=== PATIENT | female | born 1940 | race Caucasian/White ===

== ENCOUNTER → 2018-04-06 14:19 | Outpatient (CLI) | payer MEDICARE, SELFPAY ==
--- NOTE | 2018-04-06 14:23 | BI_ITS ---
MAMMOGRAPHY - BILATERAL SCREENING REASON FOR EXAM: Female, 78 years old. Routine annual screening examination. PERTINENT HISTORY: Daughter with breast cancer. Grandmother with breast cancer. TECHNIQUE: Digital bilateral breast navin (3D mammographic acquisition) in the CC and MLO projections. 2-D mediolateral oblique (MLO) and craniocaudad (CC) views of both breasts were obtained. CAD: Full Field Digital Mammography with Computer Added Detection was performed. COMPARISON: Comparison is made with prior study dated September 26, 2015 and September 25, 2014. FINDINGS: Breast Composition: There are scattered areas of fibroglandular density. There are no dominant masses or suspicious calcifications. No other significant abnormalities are identified. There has been no significant change since the prior study. BI/SCREENING MAMM (CAD), BILAT IMPRESSION: Stable bilateral screening mammogram. Yearly follow-up mammogram recommended. (A) ASSESSMENT CATEGORY: BIRADS Category 1: Negative. A letter regarding these results will be sent to the patient by the facility within 30 days. Approximately 10% of breast cancers are not detected by mammography. A normal mammogram should not delay biopsy of a clinically suspicious abnormality. [id number] Electronically Signed: Vahid Gallegos MD at 15:23 EDT Tel [phone], Service support ,
== END ==
PROVIDERS: Family Provider Family Medicine; PCP Family Medicine; Visit Provider Family Medicine
DX: Z12.31 Encounter for screening mammogram for malignant neoplasm of breast (principal)
CPT/HCPCS: 77063; 77067

== ENCOUNTER → 2019-06-28 | Outpatient (CLI) | payer MEDICARE, SELFPAY ==
--- NOTE | 2019-06-28 10:01 | BI_ITS ---
MAMMOGRAPHY - BILATERAL SCREENING REASON FOR EXAM: Female, 79 years old. Routine annual screening examination. PERTINENT HISTORY: Daughter with breast cancer. Grandmother with breast cancer. TECHNIQUE: Digital bilateral breast robert (3D mammographic acquisition) in the CC and MLO projections. 2-D mediolateral oblique (MLO) and craniocaudad (CC) views of both breasts were obtained. CAD: Full Field Digital Mammography with Computer Added Detection was performed. COMPARISON: Comparison is made with prior study dated April 06, 2018 and September 26, 2015. FINDINGS: Breast Composition: There are scattered areas of fibroglandular density. There are no dominant masses or suspicious calcifications. No other significant abnormalities are identified. There has been no significant change since the prior study. BI/SCREEN MAMM (CAD) W/ROBERT BILAT IMPRESSION: Stable bilateral screening mammogram. Yearly follow-up mammogram recommended. (A) ASSESSMENT CATEGORY: BIRADS Category 2: Benign. A letter regarding these results will be sent to the patient by the facility within 30 days. Approximately 10% of breast cancers are not detected by mammography. A normal mammogram should not delay biopsy of a clinically suspicious abnormality. [id number] Electronically Signed: Vahid Gallegos, at 13:16 EDT , Service support ,
--- NOTE | 2019-06-28 10:33 | BD_ITS ---
STUDY: DUAL ENERGY X-RAY ABSORPTIOMETRY / DXA REASON FOR EXAM: Female, 79 years old. The patient is postmenopausal. Loss of height. TECHNIQUE: Bone Mineral Density (BMD) measurements of lumbar spine and right hip were obtained. COMPARISON: None. FINDINGS: Lumbar Spine (L1-L4): g/cm2 (1.452) / T-score (2.3) / Z-score (4.1) Findings are suggestive of normal bone density with a low fracture risk. Right Femur Total: g/cm2 (0.817) / T-score (-1.5) / Z-score (0.5) Right Femoral Neck: g/cm2 (0.800) / T-score (-1.7) / Z-score (0.4) BD/Dexa Bone Density Study IMPRESSION: The patient is considered osteopenic as outlined below according to World Eagle Organization (WHO) criteria with a moderate fracture risk. Reference Information: The T-score is the number of standard deviations above or below the standard which is normal for young adults at their peak bone mineral density. The World Health Organization (WHO) interprets the T-scores as follows: Above -1 Normal bone density Between -1 and -2.5 Osteopenia Equal to / or below -2.5 Osteoporosis As a practical clinical guideline, osteopenia may be graded as follows: Mild -1 through -1.5 Moderate -1.6 through -2.0 Severe -2.1 through -2.4 The Z-score is the number of standard deviations above or below age-matched controls. A Z-score of less than -1.5 would be considered abnormal. References: 1. NIH Osteoporosis and Related Bone Diseases http://www.osteo.org 2. International Society for Clinical Densitometry http://www.iscd.org 3. National Osteoporosis Foundation http://www.nof.org Electronically Signed: Vahid Gallegos, at 8:30 EDT , Service support ,
== END | disposition home or self-care (01) ==
LOC: OPBD 09:58
PROVIDERS: Family Provider Registered Nurse; PCP Registered Nurse; Referring Provider Registered Nurse; Visit Provider Registered Nurse
DX: Z78.0 Asymptomatic menopausal state (principal); Z13.820 Encounter for screening for osteoporosis; Z12.31 Encounter for screening mammogram for malignant neoplasm of breast
CPT/HCPCS: 77063; 77067; 77080

== ENCOUNTER 2020-01-27 08:22 | Emergency (ER) | payer MEDICARE, SELFPAY ==
[2020-01-27] VITALS (8 sets, daily range): BP systolic 110–143; BP diastolic 69–99; PULSE 71–82; RESP 15–22; TEMP 36.7–36.8; O2SAT 94–97; BMI 31.1
--- NOTE | 2020-01-27 08:25 | EKG12_ITS ---
Test Reason : CP Blood Pressure : / mmHG Vent. Rate : 075 BPM Atrial Rate : 075 BPM P-R Int : 180 ms QRS Dur : 138 ms QT Int : 440 ms P-R-T Axes : 028 028 -16 degrees QTc Int : 491 ms Normal sinus rhythm Right bundle branch block Possible Inferior infarct , age undetermined Abnormal ECG Confirmed by GISELA BANDA, TONEY ([id number]), medical editor MARY LUCIA ([id number]) on 01/30/2020 10:07:30 AM Referred By: IDALMIS Confirmed By:TONEY HIGGINS MD
--- NOTE | 2020-01-27 08:25 | RAD_ITS ---
STUDY: X-RAY CHEST REASON FOR EXAM: Female, 79 years old. CHEST PAIN TECHNIQUE: Single AP portable view of the chest. COMPARISON: None. FINDINGS: EKG electrodes are seen. Focal patchy infiltrates are seen in the right upper and right lower lobes. Mild increased markings in the midportion of the left lung. Follow-up is recommended. There is no demonstrated pleural abnormality. Normal size heart. Normal mediastinum and madeline. Normal visualized pulmonary arteries. There is atherosclerotic tortuosity of the aortic arch and descending thoracic aorta. There are diffuse degenerative changes of the visualized thoracic spine. There is degenerative osteoarthritis of the bilateral shoulders. There is no demonstrated abnormality of the visualized soft tissue structures of the upper abdomen. RAD/Chest 1 View (Portable) IMPRESSION: Patchy infiltrate in the right upper and right lower lobes as well as in the left midlung. Follow-up is recommended. Electronically Signed: Vahid Gallegos, at 9:09 EDT , Service support ,
[2020-01-27 08:41] LABS: Absolute Lymphocyte Count 1.22 X10^3/uL (0.83-4.51); Absolute Neutrophil Count 3.1 X10^3/uL (2.0-7.7); Basophil# 0.03 X10^3/uL; Basophil% 0.6 % (0-1); Eosinophil# 0.07 X10^3/uL; Eosinophils% 1.4 % (0-5); Hematocrit 39.5 % (37-47); Hemoglobin 12.9 g/dL (12.0-15.0); Lymphocyte # 1.22 X10^3/ul (4.0); Mean Corp Hgb Conc 32.7 g/dL (32-36); Mean Corpuscular Hgb 29.2 pg (27.0-32.0); Mean Corpuscular Volume 89.4 fL (81-99); Mean Platelet Vol. 10.8 fl (6.2-12.0); Monocyte# 0.42 X10^3/uL; Monocyte% 8.6 % (0-10); NRBC Flagged by Analyzer 0 % (0-5); Neutrophil # 3.12 X10^3/uL (2.7-7.7); Platelet Count 142 K/mm3 (150-450); RBC Distribution Width CV 14.5 % (11.6-14.6); RBC Distribution Width SD 46.9 fl (35.1-43.9); Red Blood Count 4.42 M/mm3 (4.2-5.4); White Blood Count 4.9 K/mm3 (4.4-11.0)
[2020-01-27 08:56] LABS: Anion Gap 9 (5-15); BUN 14 mg/dL (7-18); BUN/Creat Ratio 13.2 RATIO (10-20); Calcium,Total 9.1 mg/dL (8.5-10.1); Chloride 105 mmol/L (98-107); Creatinine, Serum 1.06 mg/dL (0.55-1.02); EST Glomerular Filtration Rate 53 mL/min (>60); Est Glom Filt Rate - Afr Amer 64 mL/min (>60); Estimated Creatinine Clearance 34.04 ml/min; Glucose 224 mg/dL (74-106); Potassium 3.5 mmol/L (3.5-5.1); Sodium Level 139 mmol/L (136-145)
[2020-01-27 09:27] LABS: International Normalized Ratio 1.3; Partial Thromboplast Time 40.1 Seconds (24.1-36.2); Prothrombin Time (Protime)PT. 15.8 SECONDS (11.7-14.9)
[2020-01-27] MEDS: Azithromycin 250 MG Tablet 500 MG PO (09:48)
[2020-01-27 09:49] LABS: AST(SGOT) 36 U/L (15-37); Alanine Aminotransfer ALT/SGPT 36 U/L (13-56); Albumin, Serum 3.4 g/dL (3.2-5.0); Alkaline Phosphatase 61 U/L (45-117); Bilirubin, Direct 0.22 mg/dL (0.00-0.30); Globulin 4.7 g/dL (2.2-4.2); Protein, Total 8.1 g/dL (6.4-8.2)
[2020-01-27] MEDS: Ceftriaxone 1 GM/50 ML BAG IV (10:02)
[2020-01-27 10:10] LABS: Lactic Acid 2.3 mmol/L (0.4-1.9)
--- NOTE | 2020-01-27 11:12 | CT_ITS ---
STUDY: CT CHEST WITHOUT CONTRAST REASON FOR EXAM: Female, 79 years old. PT STATED CHEST PAIN, HX OF HTN RADIATION DOSAGE (If Supplied By Facility): CTDIvol = ( 14.30 ) mGy, DLP = ( 464.43 ) mGycm TECHNIQUE: Transaxial imaging was performed without the administration of intravenous contrast material. Multiplanar coronal and sagittal images were reformatted. Individualized dose optimization techniques were used for this CT. COMPARISON: Comparison is made with prior chest radiograph done earlier today. FINDINGS: Emphysematous changes. Increase interstitial markings in the right upper lobe with subpleural blebs. Increased interstitial markings with areas of confluence in the lower lobes worse on the right side with multiple blebs. There is a 1.9 cm x 1.8 cm bleb in the posterior medial aspect of the right lower lobe. Tiny air-fluid level seen within the. This may represent a tiny infected bleb. There is no demonstrated pleural abnormality. There are calcifications of the coronary arteries. There are multiple small lymph nodes within the mediastinum, which are normal in size and morphology most compatible with reactive lymph hyperplasia. Normal hilar regions. Normal unenhanced pulmonary arteries. There is atherosclerotic calcification of the aortic arch with tortuosity and elongation of the aortic arch and descending thoracic aorta. There are multi-level degenerative changes of the thoracic spine. Small hiatal hernia. CT/Chest without Contrast IMPRESSION: Emphysematous changes with bullous formation in the lower lobes worse in the right lower lobe. Possible small infected bleb in the medial aspect of the right lower lobe. Increased markings at the lung bases suggestive of atelectasis and/or early infiltrates. Electronically Signed: Vahid Gallegos, at 11:53 EDT , Service support ,
[2020-01-27 11:25] LABS: Bacteria 0 SEEN /hpf (None Seen); Mucous, Urine 0 SEEN /hpf (<or=2+); Red Blood Cells-Urine 0 SEEN /hpf (0-5); Squamous Epithelial Cells - UA 0 SEEN /hpf (5-10); White Blood Cells 0 SEEN /hpf (0-5)
[2020-01-27 11:49] LABS: Color, Urine Yellow (Yellow); Glucose, Dipstick Normal (Normal); Ketone-Dipstick Negative (Negative); Leukocyte Esterase-Dipstick 25 /ul (Negative); Nitrite-Dipstick Negative (Negative); Occult Blood-Urine Negative /ul (Negative); Protein-Dipstick Negative (Negative); Urine Bilirubin Dipstick Negative (Negative); Urine Clarity Clear (Clear); Urine Urobilinogen Normal (Normal); Urine pH 6.5 (5.0 - 8.0)
--- NOTE | 2020-01-27 12:46 | ED.DCSUM_ITS ---
- ER Visit Summary Date of Service: 01/27/20 Chief Complaint: Chest pain History of Present Illness: The patient is a 79 F who sees Luz Marina Schmidt. She reports that she has chest pain that began yesterday evening at 11 PM while she was at rest. Is been a continuous pain since then and she cannot further desc ribe. It is 4-10 at worst and pain-free currently. Is worsened by movement of her left arm. Pain resolved when the squad gave her nitro. She denies any associated nausea, vomiting, diaphoresis, or shortness of breath. Patient reports that she is had a cough for months that is productive white sputum. She denies any fever or chills. Patient reports that her sister and father from an aneurysm and that she is concerned that this may be an aneurysm. Physical Examination: Vitals: Stable. Afebrile. General: Well-nourished and well-developed. Head: Normocephalic atraumatic. Neck: Supple, no lymphadenopathy. No JVD. Nontender. Cardiovascular: Regular rate and rhythm. 2 out of 6 systolic murmur. Respiratory: No respiratory distress. Clear to auscultation bilaterally. Mild tenderness palpation over the left side of her chest that does reproduce her pain Abdominal: Soft, nontender, nondistended, normal bowel sounds. No guarding, rebound, or peritoneal signs. Back: Nontender. Extremities: Nontender, no edema. Skin: Normal color, no rash. Neurologic: Alert and oriented ?3. Cranial nerves II through XII are intact. Normal strength and sensation. Psych: Normal affect. Test Results: EKG is sinus at 75 with right bundle branch block and nonspecific ST changes. She has T wave inversions in leads III and aVF. This is changed, but her old EKG is from 16 years ago. Troponin is less than 0.015 with greater than 9 hours of constant pain. CBC shows platelets 142. Chem-7 shows a creatinine 1.06 and glucose 224. INR is 1.3. PTT is 40.1. UA is negative. When the patient's chest x-ray was read as an infiltrate she had a lactic acid ordered. This was 2.3. Clinical Impression(s) from Imaging Studies Chest X-Ray 01/27/20 08:25 IMPRESSION: Patchy infiltrate in the right upper and right lower lobes as well as in the left midlung. Follow-up is recommended. Electronically Signed: Vahid Gallegos, at 9:09 EDT , Service support , Chest CT 01/27/20 11:12 IMPRESSION: Emphysematous changes with bullous formation in the lower lobes worse in the right lower lobe. Possible small infected bleb in the medial aspect of the right lower lobe. Increased markings at the lung bases suggestive of atelectasis and/or early infiltrates. Electronically Signed: Vahid Gallegos, at 11:53 EDT , Service support , Emergency Department Course and Treatment: I discussed the chest x-ray and CT findings with the patient. She reports that I do not even feel sick. She is happy that the CT does not show evidence of an aneurysm. I did discuss the blebs with her. She denies any tobacco use. However, she does report that her father was a smoker. She had secondhand exposure through this. She has not had secondhand exposure as an adult essentially. She was given a dose of Rocephin and Zithromax here. She feels well and would like to go home. Treatment Plan: Given the CT findings of blebs and questionable air-fluid level in 1 of the blebs patient will be instructed to follow-up with Dr. Calvillo of pulmonology for further evaluation. She is discharged on doxycycline. Return to the emergency department for any worsening symptoms. Disposition: To home in improved and stable condition. Impression: 1. Atypical chest pain. 2. Pulmonary blebs. This note was generated with [employer] dictation software. It may contain incorrect words, spelling, and punctuation that were not noted in review of the chart prior to signing ED Disposition - Plan for ED Patient: Disposition: Home or Assisted Living Instructions: Pneumonia, ED Chest Pain Atypical Unkn Cause Prescriptions: Doxycycline 100 mg PO BID #20 cap Prescription Printed Referrals: Luz Marina Schmidt NP-C [Primary Care Provider] - 3-5 Days Jonnathan Calvillo DO [STAFF PHYSICIAN] - 1-2 Weeks
[2020-01-27 13:31] LABS: Reflex Lactate? Y
== END 2020-01-27 13:15 | disposition home or self-care (01) ==
PROVIDERS: Emergency Provider Emergency Medicine; PCP Registered Nurse
DX: R07.89 Other chest pain (principal); J43.9 Emphysema, unspecified; I10 Essential (primary) hypertension; E11.9 Type 2 diabetes mellitus without complications; E78.5 Hyperlipidemia, unspecified; Z79.899 Other long term (current) drug therapy
CPT/HCPCS: 71045; 71250; 80048; 80076; 81001; 83605; 84484; 85025; 85610; 85730; 87040; 87086; 93005; 96365; 99285; J7030; A4216

== ENCOUNTER → 2020-03-14 14:42 | Outpatient (CLI) | payer MEDICARE, SELFPAY ==
[2020-03-05 08:05] VITALS: BMI 29.8
--- NOTE | 2020-03-14 14:47 | ECHOD_ITS ---
Reason For Study: DYSPNEA Procedure This was a 2D Doppler, Color Flow transthoracic echocardiogram. The study was technically difficult. Exam performed in department. Left Ventricle Normal size and thickness. The estimated ejection fraction is 65 %. Septal motion consistent with IVCD. No regional wall motion abnormalities noted. Right Ventricle Normal size and thickness. Normal systolic function. Atria The left atrium is mildly enlarged. Normal right atrium. Normal atrial septum. Mitral Valve Mild diffuse mitral valve thickening. There is no mitral valve stenosis. Tricuspid Valve Normal tricuspid valve. Trivial tricuspid valve insufficiency. Right ventricular systolic pressure estimated to be 24 mmHg. Aortic Valve Trisinus/trileaflet aortic valve. Mild diffuse aortic valve thickening. There is no aortic stenosis. Pulmonic Valve Normal pulmonic valve. Great Vessels Normal aortic root. Normal arch. Normal inferior vena cava. Inferior vena cava collapse with sniff. Pericardium/Pleural No pericardial effusion. MMode/2D Measurements & Calculations LVIDd: 3.7 cm IVSd: 0.98 cm Ao root diam: 3.7 cm LVIDs: 2.4 cm LVPWd: 1.0 cm RVDd: 2.6 cm FS: 34.7 % LAV(MOD-bp): 52.3 ml LA A4 area: 21.0 cm2 LA dimension(2D): 3.8 cm LAV(MOD-bp) Indexed: 29.8 ml/m2 LAV(MOD-sp2): 44.5 ml LAV(MOD-sp4): 55.4 ml RA A4 area: 12.5 cm2 Time Measurements MV dec time: 0.33 sec Doppler Measurements & Calculations MV E max baldev: 49.1 cm/sec Lat Peak E' Baldev: 7.3 cm/sec Med Peak E' Baldev: 5.4 cm/sec MV A max baldev: 86.5 cm/sec E/E' lat: 6.7 E/E' med: 9.2 MV E/A: 0.57 MV V2 max: 86.2 cm/sec Ao V2 max: 144.3 cm/sec LV V1 max: 92.2 cm/sec MV max P.0 mmHg Ao max P.3 mmHg LV V1 max P.4 mmHg MV V2 mean: 47.8 cm/sec MV mean P.0 mmHg MV V2 VTI: 19.2 cm TR max baldev: 216.5 cm/sec TR max P.8 mmHg Interpretation Summary The estimated ejection fraction is 65 %. The left atrium is mildly enlarged. Mild diffuse mitral valve thickening. There is no mitral valve stenosis. Trivial tricuspid valve insufficiency. Right ventricular systolic pressure estimated to be 24 mmHg. Compared to echo report dated 05/11/2014, no appreciable changes noted. Ordering Physician: Pete Davis Referring Physician: Pete Davis Performed By: Page Vital RDCS, RVT
== END ==
PROVIDERS: PCP Registered Nurse; Referring Provider Internal Medicine Critical Care Medicine; Visit Provider Internal Medicine Critical Care Medicine
DX: R06.00 Dyspnea, unspecified (principal); R06.02 Shortness of breath; Z98.890 Other specified postprocedural states
CPT/HCPCS: 93306

== ENCOUNTER → 2020-03-28 | Outpatient (CLI) | payer MEDICARE, SELFPAY ==
[2020-03-05 08:05] VITALS: BMI 29.8
[2020-03-28 13:11] VITALS: PULSE 79; PULSE 80; PULSE 87; PULSE 94; O2SAT 93; O2SAT 94; O2SAT 95
--- NOTE | 2020-03-28 13:15 | CPS ---
Knees and hips slowed her down if anything.
--- NOTE | 2020-03-28 14:03 | WT_ITS ---
PSN 6 Minute Walk Test - 6 Minute Walk Test 6 Minute Walk Test: 6 Minute Walk Test PSN:6-Minute Walk Test Start: 03/28/20 13:10 Freq: Status: Active Protocol: [id number] Document 03/28/20 13:11 FR (Rec: 03/28/20 13:16 FR [id number]) 6 Minute Walk Test Date Performed 03/28/20 Time Performed 12:30 Height 5 ft 2 in Weight: 73.936 kg Weight in Pounds 163.[address]: Dr. Davis Assistive device used: None Pre-test Oxygen Delivery Method Room Air Pulse Ox (%) 95 Pulse Rate (60-100 beats/min) 79 Dyspnea Haroldo Scale (0-10) 5 Exertion Haroldo Scale (6-20) 8 1st minute Oxygen Delivery Method Room Air Pulse Ox (%) 94 Dyspnea Haroldo Scale (0-10) 82 2nd minute Oxygen Delivery Method Room Air Pulse Ox (%) 94 Pulse Rate (60-100 beats/min) 87 3rd minute Oxygen Delivery Method Room Air Pulse Ox (%) 94 Dyspnea Haroldo Scale (0-10) 91 4th minute Oxygen Delivery Method Room Air Pulse Ox (%) 94 Dyspnea Haroldo Scale (0-10) 93 5th minute Oxygen Delivery Method Room Air Pulse Ox (%) 94 Dyspnea Haroldo Scale (0-10) 94 6th minute Oxygen Delivery Method Room Air Pulse Ox (%) 93 Pulse Rate (60-100 beats/min) 94 Dyspnea Haroldo Scale (0-10) 4 Exertion Haroldo Scale (6-20) 8 Post-test Oxygen Delivery Method Room Air Pulse Ox (%) 95 Pulse Rate (60-100 beats/min) 80 Full Laps Walked 13 Partial Lap, Number of Tiles Walked 7 Total Distance Walked (ft) 774 03/28/20 13:15 Cardiopulmonary Services by Nidia Vaughn Knees and hips slowed her down if anything. Initialized on 03/28/20 13:15 - END OF NOTE - Interpretation Interpretation: Patient was able to ambulate 774 feet over the course of 6 minutes on room air with no assistive devices or breaks. The patient experienced no significant desaturation or tachycardia during testing. These findings are consistent with a musculoskeletal limitation exercise tolerance. - Recommendations Recommendations: No supplemental oxygen is indicated at this time.
== END | disposition home or self-care (01) ==
LOC: PSN 12:25
PROVIDERS: PCP Registered Nurse; Referring Provider Internal Medicine Critical Care Medicine; Visit Provider Internal Medicine Critical Care Medicine
DX: R06.00 Dyspnea, unspecified (principal); J84.10 Pulmonary fibrosis, unspecified
CPT/HCPCS: 94618

== ENCOUNTER → 2020-04-04 07:40 | Outpatient (CLI) | payer MEDICARE, SELFPAY ==
[2020-03-05 08:05] VITALS: BMI 29.8
--- NOTE | 2020-04-04 14:17 | PFT ---
INTRODUCTION: The patient is an 80-year-old female that presents for pulmonary function studies secondary to a diagnosis of dyspnea. Respiratory therapy reports good patient effort. Bronchodilators were used during testing. INTERPRETATION: Forced expiration spirometry demonstrates no evidence of a large airways obstructive ventilatory defect. There was no significant response to aerosolized bronchodilators. Spirograms are of good quality and plateau normally. Body plus tomography was performed and reveals a decreased TLC to 3.11 L, 72% of predicted, indicative of a mild restrictive ventilatory impairment. The remainder of the lung volumes are symmetrically reduced. Diffusing capacity by single breath CO is also reduced to 60% of predicted. IMPRESSION: Isolated mild restrictive ventilatory impairment with symmetric reduction in diffusing capacity.
== END ==
PROVIDERS: PCP Registered Nurse; Referring Provider Internal Medicine Critical Care Medicine; Visit Provider Internal Medicine Critical Care Medicine
DX: J45.909 Unspecified asthma, uncomplicated (principal)
CPT/HCPCS: 94060; 94726; 94729

== ENCOUNTER → 2020-07-06 09:43 | Outpatient (CLI) | payer MEDICARE, SELFPAY ==
[2020-03-05 08:05] VITALS: BMI 29.8
--- NOTE | 2020-07-06 09:45 | BI_ITS ---
MAMMOGRAPHY - BILATERAL SCREENING REASON FOR EXAM: Female, 80 years old. Routine annual screening examination. PERTINENT HISTORY: Daughter with breast cancer. Grandmother with breast cancer. History of chronic bilateral nipple inversion. TECHNIQUE: Digital bilateral breast robert (3D mammographic acquisition) in the CC and MLO projections. 2-D mediolateral oblique (MLO) and craniocaudad (CC) views of both breasts were obtained. CAD: Full Field Digital Mammography with Computer Added Detection was performed. COMPARISON: Comparison is made with prior study dated 06/28/2019 and 05/03/2018. FINDINGS: Breast Composition: There are scattered areas of fibroglandular density. There are no dominant masses or suspicious calcifications. No other significant abnormalities are identified. There has been no significant change since the prior study. BI/SCREEN MAMM (CAD) W/ROBERT BILAT IMPRESSION: Stable bilateral screening mammogram. Yearly follow-up mammogram recommended. (A) ASSESSMENT CATEGORY: BIRADS Category 1: Negative. A letter regarding these results will be sent to the patient by the facility within 30 days. Approximately 10% of breast cancers are not detected by mammography. A normal mammogram should not delay biopsy of a clinically suspicious abnormality. [id number] Electronically Signed: Vahid Gallegos, at 12:21 EDT , Service support ,
== END ==
PROVIDERS: PCP Registered Nurse; Referring Provider Registered Nurse; Visit Provider Registered Nurse
DX: Z12.31 Encounter for screening mammogram for malignant neoplasm of breast (principal)
CPT/HCPCS: 77063; 77067

== ENCOUNTER 2020-11-28 11:52 | Outpatient (RCR) | payer MEDICARE, SELFPAY ==
[2020-03-05 08:05] VITALS: BMI 29.8
== END 2020-11-28 23:59 ==
LOC: IMMUN 11:52
PROVIDERS: PCP Registered Nurse; Visit Provider Family Medicine
DX: Z23 Encounter for immunization (principal)
CPT/HCPCS: 0011A; 0012A; 91301

== ENCOUNTER → 2020-12-13 12:38 | Outpatient (CLI) | payer MEDICARE, SELFPAY ==
[2020-03-05 08:05] VITALS: BMI 29.8
--- NOTE | 2020-12-14 09:51 | PFT ---
INTRODUCTION: The patient is an 80-year-old female that presents for pulmonary function studies secondary to a diagnosis of pulmonary fibrosis. Respiratory therapy reports good patient effort. Bronchodilators were used during testing. INTERPRETATION: Forced expiration spirometry demonstrates no evidence of a large airways obstructive ventilatory defect. There was no significant response to aerosolized bronchodilators. Spirograms are of good quality and plateau normally. Body plethysmography was performed and reveals lung volumes to be within normal limits. Diffusing capacity by single breath CO is mildly reduced at 71% of predicted. When compared to previous pulmonary function studies from April 2020, there has been an 18% improvement in total lung capacity along with a 15% improvement in diffusing capacity. IMPRESSION: Isolated mild reduction in diffusing capacity. There has been improvement in the patient's total lung capacity and DLCO since April 2020, as noted above.
== END ==
PROVIDERS: PCP Registered Nurse; Referring Provider Internal Medicine Critical Care Medicine; Visit Provider Internal Medicine Critical Care Medicine
DX: J84.10 Pulmonary fibrosis, unspecified (principal)
CPT/HCPCS: 94060; 94726; 94729

== ENCOUNTER 2021-05-20 11:44 | Inpatient (IN) | payer MEDICARE, SELFPAY ==
[2020-12-18 13:29] VITALS: BMI 31.1
[2021-05-20] VITALS (18 sets, daily range): BP systolic 117–138; BP diastolic 67–90; PULSE 57–68; RESP 14–20; TEMP 36.2–37.1; O2SAT 93–99; BMI 35.6; BMI 31.2
--- NOTE | 2021-05-20 12:06 | RAD_ITS ---
STUDY: X-RAY CHEST REASON FOR EXAM: Female, 81 years old. Sudden onset of chest pain. TECHNIQUE: Single AP portable view of the chest. COMPARISON: Comparison is made with prior study dated 01/27/2020. FINDINGS: EKG electrodes are seen. Bilateral perihilar infiltrates worse in the right infrahilar region. There is no demonstrated pleural abnormality. Normal size heart. Normal mediastinum and madeline. Normal visualized pulmonary arteries. There is atherosclerotic calcification of the aortic arch with tortuosity. Normal visualized thoracic spine. There is degenerative osteoarthritis of the bilateral shoulders. Prior bilateral rotator cuff surgery. There is no demonstrated abnormality of the visualized soft tissue structures of the upper abdomen. RAD/Chest 1 View (Portable) IMPRESSION: Patchy bilateral perihilar infiltrates worse in the right infrahilar region. Electronically Signed: Vahid Gallegos MD at 12:39 EDT , Service support ,
--- NOTE | 2021-05-20 12:06 | EKG12_ITS ---
Test Reason : CP Blood Pressure : / mmHG Vent. Rate : 062 BPM Atrial Rate : 062 BPM P-R Int : 200 ms QRS Dur : 138 ms QT Int : 464 ms P-R-T Axes : 031 034 -10 degrees QTc Int : 470 ms Normal sinus rhythm Right bundle branch block Abnormal ECG Confirmed by GISELA BANDA, TONEY ([id number]), publications editor DAMARIS AVILA ([id number]) on 05/22/2021 10:02:20 AM Referred By: Kiran Tate Confirmed By:TONEY HIGGINS MD
--- NOTE | 2021-05-20 12:07 | EDS_ITS ---
HPI History of Present Illness Chief Complaint: Chest Pain Informant: patient Onset/Context/Timing Onset: Hours (2-hour) Activity at onset: gradual Timing: Continuous Quality: Positive for Pain Location: Left Chest Current Severity: 4/10 Maximum Severity: 8/10 Worsened By: Nothing Relieved By: Nothing Associated Symptoms: Positive for - (Radiation to left arm) Narrative Narrative: Patient present secondary to left-sided chest pain. Patient states she was sitting in a chair reading a book about 2 hours prior to arrival when she developed pressure in her left arm and left chest. She denies shortness of breath. She reports a mild cough but no sputum. No fever or chills. No Covid exposures. She did receive the Covid vaccine. She denies history of coronary artery disease. [facility] Medical History Acid reflux Arthritis Asthma Carpal tunnel syndrome Chronic kidney disease, stage 3 left hand surgery Pulmonary fibrosis Right hand surgery Shingles Home Medications amlodipine 5 mg PO DAILY 01/27/20 [History Last Taken Unknown] atorvastatin 10 mg PO DAILY 01/27/20 [History Last Taken Unknown] cholecalciferol (vitamin D3) 2,000 unit PO DAILY 01/27/20 [History Last Taken Unknown] metformin 500 mg PO BID 01/27/20 [History Last Taken Unknown] metoprolol tartrate 50 mg PO BID 01/27/20 [History Last Taken Unknown] multivitamin with minerals 1 ea PO DAILY 01/27/20 [History Last Taken Unknown] pantoprazole 20 mg PO DAILY 01/27/20 [History Last Taken Unknown] albuterol sulfate 90 mcg/actuation aerosol inhaler 2 puff INHALATION Q6H PRN 03/05/20 [History Last Taken Unknown] beclomethasone dipropionate 40 mcg/actuation HFA breath activated aerosol 2 inh INHALATION DAILY g 03/05/20 [History Last Taken Unknown] Allergy/AdvReac Type Severity Reaction Status Date / Time morphine AdvReac feels Verified 05/20/21 11:45 drunk Family History Mother Enlarged heart Asthma Father Lupus Aneurysm Sister Asthma Rheumatoid arthritis Osteoarthritis Surgical History H/O left knee surgery H/O right knee surgery H/O: hysterectomy History of arthroplasty of both shoulders History of bladder surgery Hx of appendectomy Hx of cholecystectomy Hx of removal of ovary Social History Smoking Status: Never smoker ROS ROS ED Constitutional Constitutional ED: Denies chills or fever(s) Eyes Eyes: Denies change in vision ENT ENT ED: Denies sore throat Cardiovascular Cardiovascular: Reports chest pain Respiratory/Chest Respiratory/Chest: Denies cough or dyspnea Gastrointestinal Gastrointestinal: Denies abdominal pain, diarrhea, nausea or vomiting Genitourinary Genitourinary ED: Denies dysuria Musculoskeletal Musculoskeletal: Reports arthralgias and myalgias; Denies back pain Integumentary Denies rash Neurologic Neurologic: Denies headache(s), paresthesias or weakness Psychiatric Psychiatric: Denies anxiety or depression Allergic/Immunologic Allergic/Immunologic ED: Denies urticaria EXAM Physical Exam Const Vital Signs: 05/20/21 11:45 05/20/21 11:50 05/20/21 12:11 Temperature 97.2 F L Temperature Source Temporal Pulse Rate 64 64 Respiratory Rate 20 H 17 Respiratory Effort Normal Non-Labored Respiratory Pattern Normal Blood Pressure 132/83 H Blood Pressure Mean 99 Pulse Ox 95 97 99 Oxygen Delivery Method Room Air Room Air Nasal Cannula Oxygen Flow Rate (L/min) 2 05/20/21 12:45 Temperature Temperature Source Pulse Rate 59 L Respiratory Rate 16 Respiratory Effort Respiratory Pattern Blood Pressure 122/74 H Blood Pressure Mean 90 Pulse Ox 95 Oxygen Delivery Method Nasal Cannula Oxygen Flow Rate (L/min) 2 Positive well nourished and well developed General Appearance ED: well developed HEENT Reports normocephalic and head/scalp atraumatic Eyes PERRL and EOMs intact bilaterally Neck supple Chest Wall inspection of chest normal and palpation of chest normal Resp normal respiratory effort and clear to auscultation bilaterally Cardio regular rate and regular rhythm GI normal to inspection, nondistended, normoactive bowel sounds Palpation: soft Extremity normal to inspection Neuro oriented x3 and no sensory deficits noted Sensorium / Orientation: alert Motor Exam: strength 5/5 throughout Psych mental status grossly normal Skin no rashes or lesions noted Heart Score History: Moderately Suspicious ECG: Normal Age: >/= 65 years Risk Factors: No Risk Factors Troponin: >/=3 x Normal Limit Score: 5 MDM MDM MDM Narrative Medical decision making narrative: Patient had declined aspirin secondary to her chronic kidney disease. EKG, labs, chest x-ray obtained. Patient was given 25 mcg of fentanyl. Lab Data Attestation: I reviewed the patient's lab results. Labs: Laboratory Results - last 24 hr 05/20/21 05/20/21 11:30 11:30 WBC 4.6 RBC 4.61 Hgb 13.2 Hct 41.7 MCV 90.5 MCH 28.6 MCHC 31.7 L RDW Std Deviation 47.8 H RDW Coeff of Mg 14.6 Plt Count 148 L MPV 11.3 Immature Gran % (Auto) 0.400 Neut % (Auto) 66.0 Lymph % (Auto) 24.2 [place] % (Auto) 8.1 Eos % (Auto) 0.9 Baso % (Auto) 0.4 Absolute Neuts (auto) 3.0 Absolute Lymphs (auto) 1.10 Nucleated RBC % 0 Sodium 138 Potassium 3.9 Chloride 107 Carbon Dioxide 27.0 Anion Gap 4 L BUN 16 Creatinine 0.88 Estim Creat Clear Calc 37.83 Est GFR (MDRD) Af Amer 79 Est GFR (MDRD) Non-Af 65 BUN/Creatinine Ratio 18.1 Glucose 160 H Calcium 8.9 Troponin I High Sens 88.0 H* Radiography Chest X-Ray - ED: 1 View, Read by ED Physician and - (Fibrotic lung changes.) Diagnostic Testing: Radiology Impression Chest X-Ray 05/20/21 12:06 IMPRESSION: Patchy bilateral perihilar infiltrates worse in the right infrahilar region. Electronically Signed: Vahid Gallegos MD at 12:39 EDT , Service support , EKG Initial EKG: Attestation: I personally reviewed and interpreted this EKG as follows: Interpretation: Sinus Rhythm (Sinus at 62 with right bundle branch block. Lateral T wave flattening. Not significantly changed when compared to prior margarita dy of January 2020.) Treatment and Re-Evaluation Comments:: I went back to reevaluate the patient just that she was getting her fentanyl. She states she felt that her pain was slightly worse. Repeat EKG obtained. Lab work does reveal elevated troponin at 88. Renal function is normal. Patient did agree to take aspirin at this time and it is ordered. On repeat evaluation patient reports pain is much improved after fentanyl and aspirin. Repeat EKG shows no acute changes. I spoke with Dr. Tate. He will see the patient to discuss possible heart cath. Discharge Plan Dx/Rx/DC Orders Clinical Impression: Acute non-ST elevation myocardial infarction (NSTEMI) Disposition Disposition: Acute Care Hospital [facility]
[2021-05-20 12:13] LABS: Basophil# 0.02 X10^3/uL; Basophil% 0.4 % (0-1); Eosinophil# 0.04 X10^3/uL; Eosinophils% 0.9 % (0-5); Hematocrit 41.7 % (37-47); Hemoglobin 13.2 g/dL (12.0-15.0); Lymphocyte % 24.2 % (19-41); Mean Corp Hgb Conc 31.7 g/dL (32-36); Mean Corpuscular Hgb 28.6 pg (27.0-32.0); Mean Corpuscular Volume 90.5 fL (81-99); Mean Platelet Vol. 11.3 fl (6.2-12.0); Monocyte# 0.37 X10^3/uL; Monocyte% 8.1 % (0-10); NRBC Flagged by Analyzer 0 % (0-5); Platelet Count 148 K/mm3 (150-450); RBC Distribution Width CV 14.6 % (11.6-14.6); RBC Distribution Width SD 47.8 fl (35.1-43.9); Red Blood Count 4.61 M/mm3 (4.2-5.4); White Blood Count 4.6 K/mm3 (4.4-11.0)
[2021-05-20 12:27] LABS: Anion Gap 4 (5-15); BUN 16 mg/dL (7-18); BUN/Creat Ratio 18.1 RATIO (10-20); Calcium,Total 8.9 mg/dL (8.5-10.1); Chloride 107 mmol/L (98-107); Creatinine, Serum 0.88 mg/dL (0.55-1.02); EST Glomerular Filtration Rate 65 mL/min (>60); Est Glom Filt Rate - Afr Amer 79 mL/min (>60); Estimated Creatinine Clearance 37.83 ml/min; Glucose 160 mg/dL (74-106); Potassium 3.9 mmol/L (3.5-5.1); Sodium Level 138 mmol/L (136-145)
[2021-05-20] MEDS: fentaNYL 100 MCG/2 ML Ampul 25 MCG IV (12:29)
--- NOTE | 2021-05-20 12:33 | EKG12_ITS ---
Test Reason : REPEAT CP Blood Pressure : / mmHG Vent. Rate : 058 BPM Atrial Rate : 058 BPM P-R Int : 204 ms QRS Dur : 136 ms QT Int : 472 ms P-R-T Axes : 016 036 -06 degrees QTc Int : 463 ms Sinus bradycardia Right bundle branch block Abnormal ECG Confirmed by GISELA BANDA, TONEY ([id number]), photograph editor DAMARIS AVILA ([id number]) on 05/22/2021 10:02:38 AM Referred By: Kiran Tate Confirmed By:TONEY HIGGINS MD
[2021-05-20] MEDS: Aspirin 81 MG TAB.CHEW 324 MG PO (12:35)
--- NOTE | 2021-05-20 13:14 | HP.PCM.HOS_ITS ---
Documented by User: Dr. Lizeth Fisher MD 05/21/21 17:38 HPI - General General Date of Admission: 05/20/21 HPI Narrative ERWIN RODRIGUEZ, is a 81 Fwith a PMH as outlined who presents with a complaint of left sided chest pain. Chest pain started about 2 hours prior to admission, and was left sided and radiated down her left arm. She denied any associated shortn ess of breath, lightheadedness, dizziness, nausea or vomiting. Review of systems is otherwise negative. Vitals showed BP of 131/76, OK of 60, RR of 16 and she was saturating at 96% on room air. CBC showed wbc of 4.6, hb of 13.2, platelets of 148. EKG showed no acute ST changes, but initial high sensitivity troponin was elevated at 88. CXR showed patchy bilateral perihilar infiltrates worse in the right infrahilar region. Cardiology was consulted. Patient is being admitted to be managed for chest pain to r/o ACS. [facility] Medical History (Updated 05/20/21 @ 15:30 by Graciela Oneal) Acid reflux Arthritis Asthma Atherosclerotic heart disease [place] coronary artery w/angina pectoris Carpal tunnel syndrome Chronic kidney disease, stage 3 left hand surgery Pancreatitis Pulmonary fibrosis Rheumatoid arthritis Right hand surgery Shingles Home Medications cholecalciferol (vitamin D3) 2,000 unit PO DAILY 01/27/20 [History Last Taken 05/20/21 09:00] metoprolol tartrate 50 mg PO BID 01/27/20 [History Last Taken 05/20/21 09:00] multivitamin with minerals 1 ea PO DAILY 01/27/20 [History Last Taken 05/20/21 09:00] pantoprazole 20 mg PO DAILY 01/27/20 [History Last Taken 05/20/21 08:00] albuterol sulfate 90 mcg/actuation aerosol inhaler 2 puff INHALATION Q6H PRN 03/05/20 [History Last Taken Unknown] beclomethasone dipropionate 40 mcg/actuation HFA breath activated aerosol 2 inh INHALATION DAILY g 03/05/20 [History Last Taken 05/20/21 09:00] amlodipine 10 mg PO DAILY #30 tab 05/21/21 [Rx Last Taken Unknown] aspirin 81 mg PO DAILY #30 tab 05/21/21 [Rx Last Taken Unknown] atorvastatin 40 mg PO QHS #30 tab 05/21/21 [Rx Last Taken Unknown] lisinopril 2.5 mg PO DAILY #30 tab 05/21/21 [Rx Last Taken Unknown] metformin 1,000 mg PO BID #60 tab 05/21/21 [Rx Last Taken Unknown] Allergy/AdvReac Type Severity Reaction Status Date / Time morphine AdvReac feels Verified 05/20/21 11:45 drunk Family History Mother Enlarged heart Asthma Father Lupus Aneurysm Sister Asthma Rheumatoid arthritis Osteoarthritis Surgical History (Updated 05/20/21 @ 15:24 by Christal Douglas) H/O left knee surgery H/O right knee surgery H/O: hysterectomy History of arthroplasty of both shoulders History of bladder surgery History of left heart catheterization (05/20/21) Hx of appendectomy Hx of cholecystectomy Hx of removal of ovary Social History (Updated 05/20/21 @ 15:30 by Graciela Oneal) Smoking Status: Never smoker ROS Constitutional Constitutional: Denies anorexia, change in weight, chills, fever(s) or weakness Eyes Eyes: Denies change in vision ENT HEENT: Denies dysphagia, headache(s), nasal congestion or nasal discharge Cardiovascular Cardiovascular: Reports chest pain; Denies dyspnea on exertion, edema, lightheadedness, orthopnea, palpitations, paroxysmal nocturnal dyspnea or rapid heart rate Respiratory/Chest Respiratory/Chest: Denies cough, dyspnea, shortness of breath at rest or shortness of breath with exertion Gastrointestinal Gastrointestinal: Reports abdominal pain; Denies constipation, diarrhea, nausea or vomiting Genitourinary Genitourinary: Denies burning urination or dysuria Musculoskeletal Musculoskeletal: Denies arthralgias, joint stiffness or joint swelling Neurologic Neurologic: Denies confusion Psychiatric Psychiatric: Denies anxiety Hematologic/Lymphatic Hematologic/Lymphatic: Denies anemia Allergic/Immunologic Allergic/Immunologic: Denies asthma Vital Signs Vital Signs Vital Signs: 05/20/21 11:45 05/20/21 11:50 05/20/21 12:11 Temperature 97.2 F L Temperature Source Temporal Pulse Rate 64 64 Respiratory Rate 20 H 17 Respiratory Effort Normal Non-Labored Respiratory Pattern Normal Blood Pressure 132/83 H Blood Pressure Mean 99 Pulse Ox 95 97 99 Oxygen Delivery Method Room Air Room Air Nasal Cannula Oxygen Flow Rate (L/min) 2 05/20/21 12:45 05/20/21 13:00 Temperature Temperature Source Pulse Rate 59 L 60 Respiratory Rate 16 16 Respiratory Effort Respiratory Pattern Blood Pressure 122/74 H 131/76 H Blood Pressure Mean 90 94 Pulse Ox 95 96 Oxygen Delivery Method Nasal Cannula Nasal Cannula Oxygen Flow Rate (L/min) 2 2 Weight Weight: 188 lb 14.978 oz Body Mass Index (BMI) 35.6 Physical Exam Const alert, oriented x3 and no apparent distress General Appearance: cooperative HEENT normocephalic, head/scalp atraumatic, hearing grossly normal bilaterally, moist oral mucous membranes and oropharynx normal Eyes PERRL, EOMs intact bilaterally and conjunctivae normal Neck no lymphadenopathy Resp normal respiratory effort, no retractions, no use of accessory muscles and clear to auscultation bilaterally Cardio regular rate, regular rhythm, S1 normal heart sound, S2 normal heart sound and no murmurs GI normal to inspection, nondistended, normoactive bowel sounds, soft to palpation, non-tender and non-distended Extremity normal to inspection, full ROM and no clubbing, cyanosis or edema Peripheral Pulses: Yes pulses 2+ throughout Skin no rashes or lesions noted, no wounds and skin turgor normal Neuro oriented x3, CN's II-XII intact bilaterally and moves all extremities Sensorium / Orientation: alert Psych affect normal Results Lab / Micro Data Result Diagrams: 05/21/21 05:50 05/21/21 05:50 Labs: Laboratory Results - last 24 hr 05/20/21 11:30: WBC 4.6, RBC 4.61, Hgb 13.2, Hct 41.7, MCV 90.5, MCH 28.6, MCHC 31.7 L, RDW Std Deviation 47.8 H, RDW Coeff of Mg 14.6, Plt Count 148 L, MPV 11.3, Immature Gran % (Auto) 0.400, Neut % (Auto) 66.0, Lymph % (Auto) 24.2, [place] % (Auto) 8.1, Eos % (Auto) 0.9, Baso % (Auto) 0.4, Absolute Neuts (auto) 3.0, Absolute Lymphs (auto) 1.10, Nucleated RBC % 0 05/20/21 11:30: Sodium 138, Potassium 3.9, Chloride 107, Carbon Dioxide 27.0, Anion Gap 4 L, BUN 16, Creatinine 0.88, Estim Creat Clear Calc 37.83, Est GFR (MDRD) Af Amer 79, Est GFR (MDRD) Non-Af 65, BUN/Creatinine Ratio 18.1, Glucose 160 H, Calcium 8.9, Troponin I High Sens 88.0 H* Radiology Impression Chest X-Ray 05/20/21 12:06 IMPRESSION: Patchy bilateral perihilar infiltrates worse in the right infrahilar region. Electronically Signed: Vahid Gallegos MD at 12:39 EDT , Service support , Assessment & Plan Assessment/Plan (1) Acute non-ST elevation myocardial infarction (NSTEMI): PLAN: #Nonstemi * admit to PCu * SL nitroglycerin prn. Po aspirin 81mg daily. high intensity statin * cardiology consulted from ED; Dr Tate to see patient in the ED to determine if she needs an urgent cardiac cath. * on metoprolol and losartan. * was given a dose of lovenox and aspirin 324mg x 1 in the ED * 2D echo ordered * #CKD stage 3 #Hypertension * on metoprolol and losartan. * #History of asthma: * on on breathing treatment with bronchodilators * #Diabetes mellitus * on metformin; will hold as she may need a cardiac cath. * ISS. Accuchecks ACHS * * #hyperlipidemia: on atorvastatin. DVT prophylaxis: on SCDs. Code status: full code * Patient and daughter counseled extensively about different types of CODE STATUS including full code, DNR CCA and DNR CCA. Patient elects to be full code. Total lifg-pl-gpyu time 16 minutes. Charges/Coding Visit Charges Inpatient E&M: 06954 Init Hosp L3 Procedures Hospitalists Procedures: 29794 Advncd Care Plan 30 Min Documented by User: Dr. Kiran Tate MD 05/20/21 13:42 PFSH Medical History (Updated 05/20/21 @ 15:30 by Graciela Oneal) Acid reflux Arthritis Asthma Atherosclerotic heart disease [place] coronary artery w/angina pectoris Carpal tunnel syndrome Chronic kidney disease, stage 3 left hand surgery Pancreatitis Pulmonary fibrosis Rheumatoid arthritis Right hand surgery Shingles Home Medications cholecalciferol (vitamin D3) 2,000 unit PO DAILY 01/27/20 [History Last Taken 05/20/21 09:00] metoprolol tartrate 50 mg PO BID 01/27/20 [History Last Taken 05/20/21 09:00] multivitamin with minerals 1 ea PO DAILY 01/27/20 [History Last Taken 05/20/21 0 9:00] pantoprazole 20 mg PO DAILY 01/27/20 [History Last Taken 05/20/21 08:00] albuterol sulfate 90 mcg/actuation aerosol inhaler 2 puff INHALATION Q6H PRN 03/05/20 [History Last Taken Unknown] beclomethasone dipropionate 40 mcg/actuation HFA breath activated aerosol 2 inh INHALATION DAILY g 03/05/20 [History Last Taken 05/20/21 09:00] amlodipine 10 mg PO DAILY #30 tab 05/21/21 [Rx Last Taken Unknown] aspirin 81 mg PO DAILY #30 tab 05/21/21 [Rx Last Taken Unknown] atorvastatin 40 mg PO QHS #30 tab 05/21/21 [Rx Last Taken Unknown] lisinopril 2.5 mg PO DAILY #30 tab 05/21/21 [Rx Last Taken Unknown] metformin 1,000 mg PO BID #60 tab 05/21/21 [Rx Last Taken Unknown] Allergy/AdvReac Type Severity Reaction Status Date / Time morphine AdvReac feels Verified 05/20/21 11:45 drunk Family History Mother Enlarged heart Asthma Father Lupus Aneurysm Sister Asthma Rheumatoid arthritis Osteoarthritis Surgical History (Updated 05/20/21 @ 15:24 by Christal Douglas) H/O left knee surgery H/O right knee surgery H/O: hysterectomy History of arthroplasty of both shoulders History of bladder surgery History of left heart catheterization (05/20/21) Hx of appendectomy Hx of cholecystectomy Hx of removal of ovary Social History (Updated 05/20/21 @ 15:30 by Graciela Oneal) Smoking Status: Never smoker Results Lab / Micro Data Result Diagrams: 05/21/21 05:50 05/21/21 05:50
--- NOTE | 2021-05-20 13:29 | NURSING ---
DR SMITH IN ROOM
--- NOTE | 2021-05-20 13:29 | NURSING ---
[employer] ADMINISTRATOR DR DONOVAN [facility]
--- NOTE | 2021-05-20 13:35 | ED.RN ---
REPORT TO [employer] RN.
--- NOTE | 2021-05-20 13:42 | CON.PCM.CA_ITS ---
Assessment & Plan Assessment/Plan (1) Chest pain: PLAN: She presents with chest discomfort which is concerning for angina. My recommendation at this time would be that because of her abnormal cardiac enzymes, the typical nature of the chest discomfort. That we proceed with a left heart catheterization. The risk benefits and alternatives have been explained to her she understands and agrees to proceed. Addendum at 2:30 PM. Patient underwent cardiac catheterization which demonstrated the following: Normal left main coronary artery. Left anterior descending artery with diffuse disease with almost 50% stenosis. Ostial left circumflex artery in the nondominant vessel with 70% stenosis Diffuse right coronary artery disease with slow flow and at most 30% stenosis. Preserved left ventricular systolic function. Based on the above angiographic findings I would suggest that we aggressively manage medical therapy with high intensity statin, beta-woodrow and calcium woodrow due to the slow flow. Patient can be observed overnight and discharge in a.m. (2) HTN (hypertension), benign: PLAN: Her blood pressure appears to be under good control at this particular time. Would recommend that we continue the same medications for now. Thank you for allowing me to participate in the care of your patient. Please don't hesitate to call if any issues arise. HPI Consult Data Date of Consult: 05/20/21 HPI Narrative HPI Narrative: ERWIN RODRIGUEZ, is a 81 F who presents to the emergency room with chest discomfort described as a heavy sensation across her chest radiating to the left arm. She also had some in her shoulder. She was sitting reading a book when the above happened. She has had no previous such episode. She denies any dizziness or diaphoresis near syncope or syncope she does have a history of hypertension hyperlipidemia and diabetes mellitus. In the emergency room she was administered some fentanyl with improvement in her chest discomfort her EKG did not demonstrate any significant abnormalities. Cardiac enzymes were abnormal and cardiology was asked to evaluate her. FORMERLY [facility], [facility] Medical History Acid reflux Arthritis Asthma Carpal tunnel syndrome Chronic kidney disease, stage 3 left hand surgery Pulmonary fibrosis Right hand surgery Shingles Home Medications amlodipine 5 mg PO DAILY 01/27/20 [History Last Taken Unknown] atorvastatin 10 mg PO DAILY 01/27/20 [History Last Taken Unknown] cholecalciferol (vitamin D3) 2,000 unit PO DAILY 01/27/20 [History Last Taken Unknown] metformin 500 mg PO BID 01/27/20 [History Last Taken Unknown] metoprolol tartrate 50 mg PO BID 01/27/20 [History Last Taken Unknown] multivitamin with minerals 1 ea PO DAILY 01/27/20 [History Last Taken Unknown] pantoprazole 20 mg PO DAILY 01/27/20 [History Last Taken Unknown] albuterol sulfate 90 mcg/actuation aerosol inhaler 2 puff INHALATION Q6H PRN 03/05/20 [History Last Taken Unknown] beclomethasone dipropionate 40 mcg/actuation HFA breath activated aerosol 2 inh INHALATION DAILY g 03/05/20 [History Last Taken Unknown] Allergy/AdvReac Type Severity Reaction Status Date / Time morphine AdvReac feels Verified 05/20/21 11:45 sang Family History Mother Enlarged heart Asthma Father Lupus Aneurysm Sister Asthma Rheumatoid arthritis Osteoarthritis Surgical History H/O left knee surgery H/O right knee surgery H/O: hysterectomy History of arthroplasty of both shoulders History of bladder surgery Hx of appendectomy Hx of cholecystectomy Hx of removal of ovary Social History Smoking Status: Never smoker ROS Constitutional Constitutional: Denies fever(s) or weight loss Eyes Eyes: Reports systems reviewed and no addt'l complaints, except as documented ENT HEENT: Reports systems reviewed and no addt'l complaints, except as documented Cardiovascular Cardiovascular: Reports chest pain at rest; Denies edema, palpitations or paroxysmal nocturnal dyspnea Respiratory/Chest Respiratory/Chest: Denies dyspnea on exertion, productive cough, shortness of breath at rest or shortness of breath with exertion Gastrointestinal Gastrointestinal: Denies change in bowel habits, nausea, vomiting or weight changes Genitourinary Genitourinary: Denies difficulty urinating Musculoskeletal Musculoskeletal: Denies joint stiffness or muscle weakness Integumentary Integumentary: Denies lesions Neurologic Neurologic: Denies dizziness or syncope Psychiatric Psychiatric: Denies anxiety Endocrine Endocrinology: Denies excessive sweating or fatigue Hematologic/Lymphatic Hematologic/Lymphatic: Denies anemia Allergic/Immunologic Allergic/Immunologic: Denies seasonal rhinorrhea Physical Exam Const alert, oriented x3 and healthy appearing Orientation / Consciousness: awake HEENT normocephalic Eyes PERRL Neck no lymphadenopathy, supple and no JVD Chest inspection of chest normal and palpation of chest normal Resp normal respiratory effort Cardio regular rate, regular rhythm, S1 normal heart sound, S2 normal heart sound and no murmurs Palpation: normal PMI Rate: regular rate Rhythm: regular rhythm GI normal to inspection, nondistended, normoactive bowel sounds no CVA tenderness Groin / Perineum Exam: ecchymosis Back/Spine no CVA tenderness Extremity normal to inspection Skin no rashes or lesions noted Neuro CN's II-XII intact bilaterally Psych mental status grossly normal Objective Data Vital Signs: Vital Signs Temp Pulse Resp BP Pulse Ox 97.2 F L 63 15 129/83 H 97 05/20/21 13:18 05/20/21 13:18 05/20/21 13:18 05/20/21 13:18 05/20/21 13:18 Oxygen Flow Rate (L/min) 2 Oxygen Delivery Method Nasal Cannula Weight: 188 lb 14.978 oz Body Mass Index (BMI) 35.6 Lab / Micro Data Result Diagrams: 05/20/21 11:30 05/20/21 11:30 Labs: Laboratory Results - last 24 hr 05/20/21 11:30: WBC 4.6, RBC 4.61, Hgb 13.2, Hct 41.7, MCV 90.5, MCH 28.6, MCHC 31.7 L, RDW Std Deviation 47.8 H, RDW Coeff of Mg 14.6, Plt Count 148 L, MPV 11.3, Immature Gran % (Auto) 0.400, Neut % (Auto) 66.0, Lymph % (Auto) 24.2, [place] % (Auto) 8.1, Eos % (Auto) 0.9, Baso % (Auto) 0.4, Absolute Neuts (auto) 3.0, Absolute Lymphs (auto) 1.10, Nucleated RBC % 0 05/20/21 11:30: Sodium 138, Potassium 3.9, Chloride 107, Carbon Dioxide 27.0, Anion Gap 4 L, BUN 16, Creatinine 0.88, Estim Creat Clear Calc 37.83, Est GFR (MDRD) Af Amer 79, Est GFR (MDRD) Non-Af 65, BUN/Creatinine Ratio 18.1, Glucose 160 H, Calcium 8.9, Troponin I High Sens 88.0 H* Cardiology Labs/Tests 05/20/21 11:30: WBC 4.6, RBC 4.61, Hgb 13.2, Hct 41.7, MCV 90.5, MCH 28.6, MCHC 31.7 L, Plt Count 148 L, MPV 11.3, Immature Gran % (Auto) 0.400, Neut % (Auto) 66.0, Lymph % (Auto) 24.2, [place] % (Auto) 8.1, Eos % (Auto) 0.9, Baso % (Auto) 0.4, Absolute Neuts (auto) 3.0, Nucleated RBC % 0 05/20/21 11:30: Sodium 138, Potassium 3.9, Chloride 107, Carbon Dioxide 27.0, Anion Gap 4 L, BUN 16, Creatinine 0.88, Est GFR (MDRD) Af Amer 79, Est GFR (MDRD) Non-Af 65, BUN/Creatinine Ratio 18.1, Glucose 160 H, Calcium 8.9 Rhythm: EKG: ECHO: Stress Test: Cardiac Cath: PCI: CT Surgery: Holter monitor: EPS: PPM: CXR: Chest CT Scan: Radiography Diagnostic Testing: Radiology Impression Chest X-Ray 05/20/21 12:06 IMPRESSION: Patchy bilateral perihilar infiltrates worse in the right infrahilar region. Electronically Signed: Vahid Gallegos MD at 12:39 EDT , Service support ,
--- NOTE | 2021-05-20 13:46 | ED.RN ---
PT OUT OF ED WITH [employer] RN. PT SKIN P/W/D, RESP EVEN AND UNLABORED, PT A&O X 3, NO DISTRESS NOTED.
[2021-05-20] MEDS: 0.9% Normal Saline 1,000 ML 60 ML IV (14:00)
--- NOTE | 2021-05-20 14:43 | CL.D_ITS ---
Patient Name: ERWIN RODRIGUEZ Study Date: 05/20/2021 Performing: Kiran Tate MD Ht: 61 inches 154.94 cm : 1940 Wt: 164.99 lbs 74.84 kg Age: 81 Gender: female BSA: 1.74 PROCEDURE(S) PERFORMED MO18-IRW/COR/LV CLINICAL PROFILE AND INDICATIONS Indications: Suspected CAD Heart Failure: None Stress/Imaging Stress/Image Study Performed: No CAD Presentations: Unstable angina. CONCLUSIONS Coronary artery disease with no high-grade stenosis noted but slow flow noted throughout. RECOMMENDATIONS Medical therapy DESCRIPTION OF PROCEDURE The patient arrived to the procedure lab. The risks and benefits of the procedure as well as a full d escription of our services here and current unavailability of surgical backup were fully explained to the patient and/or their significant other prior to the catheterization. The Timeout was completed, verifying the correct patient and procedure. The patient's procedural site was prepped and draped in the usual fashion. Local anesthetic was given subcutaneously to right radial region with Lidocaine 2% . Using a modified Seldinger technique, arterial access was obtained via the right radial artery, a 6 Fr sheath was inserted. Left Coronary Artery selective angiography was performed in multiple views u sing a 5 Fr. 4.0 [place] catheter. Right Coronary Artery selective angiography was then performed in mu ltiple views using a 5 Fr. 4.0 [place] catheter. Left Ventriculography was performed in PARSONS projection using a 5 Fr. [place] catheter. LV to AO pullback pressures were then recorded.The arterial sheath was pulled and a TR Band was applied for hemostasis, sheath flushed, 10cc air inserte d. CORONARY ANGIOGRAPHY DOMINANCE: Right Dominant LEFT HEART ASSESSMENT Left Ventricular Ejection Fraction: by LV Gram 65 % Normal LV wall motion Normal Left Ventricular systolic function LEFT MAIN: Mild calcification, No significant disease noted LEFT ANTERIOR DESCENDING ARTERY: Moderate luminal irregularities up to 50% CIRCUMFLEX ARTERY: OSTIAL CIRC: 70 % Stenosis RIGHT CORONARY ARTERY: Mild luminal irregularities less than 30% COMPLICATIONS No Complications PROCEDURE MEDICATIONS Fentanyl 50 mcg IV Versed 1 mg IV Oxygen: 2 L/min via nasal cannula Heparin given IA 05/20/2021 14:23:58 SUMMARY OF HEMODYNAMIC DATA Time AIR REST ECG 14:08:35 AO 104/66 (83) SA 14:25:19 LV 109/6, 9 14:31:40 LV 111/6, 11 14:31:46 LV 106/10, 14 14:32:27 LVp 105/8, 13 14:32:31 AOp 110/65 (86) 14:32:36 Signed By Kiran Tate MD On 05/20/2021 2:42:27 PM Kiran Tate MD
--- NOTE | 2021-05-20 14:47 | CASEMGMT ---
According to the [facility] website, the following are in-network tertiary facilities: [facility], [place], [facility], [facility], [facility], [facility], and . Priscilla CHEEMA CM
[2021-05-20] MEDS: Metoprolol Tartrate 50 MG Tablet PO (21:00)
[2021-05-20] MEDS: Atorvastatin Calcium 40 MG Tablet PO (21:00)
[2021-05-20 21:01] LABS: Bedside Glucose 133 mg/dL (70-110)
--- NOTE | 2021-05-20 22:33 | NURSING ---
Pandemic Charting 05/20/2021 190
[2021-05-21] VITALS (7 sets, daily range): BP systolic 111–133; BP diastolic 65–77; PULSE 62–74; RESP 14–20; TEMP 36.4–36.9; O2SAT 93–95
[2021-05-21 06:36] LABS: Absolute Lymphocyte Count 1.18 X10^3/uL (0.83-4.51); Absolute Neutrophil Count 2.7 X10^3/uL (2.0-7.7); Basophil# 0.03 X10^3/uL; Basophil% 0.7 % (0-1); Eosinophil# 0.06 X10^3/uL; Eosinophils% 1.4 % (0-5); Hematocrit 39.2 % (37-47); Hemoglobin 12.7 g/dL (12.0-15.0); Lymphocyte # 1.18 X10^3/ul (0.83-4.51); Lymphocyte % 26.7 % (19-41); Mean Corp Hgb Conc 32.4 g/dL (32-36); Mean Corpuscular Hgb 29.4 pg (27.0-32.0); Mean Corpuscular Volume 90.7 fL (81-99); Mean Platelet Vol. 11.2 fl (6.2-12.0); NRBC Flagged by Analyzer 0 % (0-5); Neutrophil # 2.73 X10^3/uL (2.7-7.7); Neutrophil % 61.7 % (47-70); Platelet Count 143 K/mm3 (150-450); RBC Distribution Width CV 14.6 % (11.6-14.6); RBC Distribution Width SD 48.6 fl (35.1-43.9); Red Blood Count 4.32 M/mm3 (4.2-5.4); White Blood Count 4.4 K/mm3 (4.4-11.0)
[2021-05-21 06:45] LABS: Bedside Glucose 111 mg/dL (70-110)
[2021-05-21 06:57] LABS: Anion Gap 3 (5-15); BUN 15 mg/dL (7-18); BUN/Creat Ratio 16.3 RATIO (10-20); Calcium,Total 8.6 mg/dL (8.5-10.1); Chloride 106 mmol/L (98-107); Creatinine, Serum 0.92 mg/dL (0.55-1.02); EST Glomerular Filtration Rate 62 mL/min (>60); Est Glom Filt Rate - Afr Amer 76 mL/min (>60); Estimated Creatinine Clearance 36.19 ml/min; Glucose 109 mg/dL (74-106); Potassium 4.1 mmol/L (3.5-5.1); Sodium Level 139 mmol/L (136-145)
--- NOTE | 2021-05-21 07:54 | PN.CARD_ITS ---
Subjective Subjective Patient seen and evaluated. Appears to be doing well. No complaints this morning. Objective Data Vital Signs: Vital Signs Temp Pulse Resp BP Pulse Ox 98.4 F 64 16 111/65 93 05/21/21 02:45 05/21/21 03:00 05/21/21 02:45 05/21/21 02:45 05/21/21 07:26 Oxygen Flow Rate (L/min) 2 Oxygen Delivery Method Room Air Weight: 168 lb 3.403 oz Body Mass Index (BMI) 31.2 Intake & Output: Intake and Output for Last 24 Hours 05/19/21 05/20/21 05/21/21 23:59 23:59 23:59 Intake Total 907 / 907 Balance 907 / 907 Lab / Micro Data Result Diagrams: 05/21/21 05:50 05/21/21 05:50 Labs: Laboratory Results - last 24 hr 05/20/21 11:30: WBC 4.6, RBC 4.61, Hgb 13.2, Hct 41.7, MCV 90.5, MCH 28.6, MCHC 31.7 L, RDW Std Deviation 47.8 H, RDW Coeff of Mg 14.6, Plt Count 148 L, MPV 11.3, Immature Gran % (Auto) 0.400, Neut % (Auto) 66.0, Lymph % (Auto) 24.2, [place] % (Auto) 8.1, Eos % (Auto) 0.9, Baso % (Auto) 0.4, Absolute Neuts (auto) 3.0, Absolute Lymphs (auto) 1.10, Nucleated RBC % 0 05/20/21 11:30: Sodium 138, Potassium 3.9, Chloride 107, Carbon Dioxide 27.0, Anion Gap 4 L, BUN 16, Creatinine 0.88, Estim Creat Clear Calc 37.83, Est GFR (MDRD) Af Amer 79, Est GFR (MDRD) Non-Af 65, BUN/Creatinine Ratio 18.1, Glucose 160 H, Calcium 8.9, Troponin I High Sens 88.0 H* 05/20/21 20:54: POC Glucose 133 H 05/21/21 05:50: WBC 4.4, RBC 4.32, Hgb 12.7, Hct 39.2, MCV 90.7, MCH 29.4, MCHC 32.4, RDW Std Deviation 48.6 H, RDW Coeff of Mg 14.6, Plt Count 143 L, MPV 11.2, Immature Gran % (Auto) 0.500, Neut % (Auto) 61.7, Lymph % (Auto) 26.7, [place] % (Auto) 9.0, Eos % (Auto) 1.4, Baso % (Auto) 0.7, Absolute Neuts (auto) 2.7, Absolute Lymphs (auto) 1.18, Nucleated RBC % 0 05/21/21 05:50: Sodium 139, Potassium 4.1, Chloride 106, Carbon Dioxide 30.0, Anion Gap 3 L, BUN 15, Creatinine 0.92, Estim Creat Clear Calc 36.19, Est GFR (MDRD) Af Amer 76, Est GFR (MDRD) Non-Af 62, BUN/Creatinine Ratio 16.3, Glucose 109 H, Calcium 8.6 05/21/21 06:39: POC Glucose 111 H Cardiology Labs/Tests 05/20/21 11:30: WBC 4.6, RBC 4.61, Hgb 13.2, Hct 41.7, MCV 90.5, MCH 28.6, MCHC 31.7 L, Plt Count 148 L, MPV 11.3, Immature Gran % (Auto) 0.400, Neut % (Auto) 66.0, Lymph % (Auto) 24.2, [place] % (Auto) 8.1, Eos % (Auto) 0.9, Baso % (Auto) 0.4, Absolute Neuts (auto) 3.0, Nucleated RBC % 0 05/20/21 11:30: Sodium 138, Potassium 3.9, Chloride 107, Carbon Dioxide 27.0, Anion Gap 4 L, BUN 16, Creatinine 0.88, Est GFR (MDRD) Af Amer 79, Est GFR (MDRD) Non-Af 65, BUN/Creatinine Ratio 18.1, Glucose 160 H, Calcium 8.9 05/21/21 05:50: WBC 4.4, RBC 4.32, Hgb 12.7, Hct 39.2, MCV 90.7, MCH 29.4, MCHC 32.4, Plt Count 143 L, MPV 11.2, Immature Gran % (Auto) 0.500, Neut % (Auto) 61.7, Lymph % (Auto) 26.7, [place] % (Auto) 9.0, Eos % (Auto) 1.4, Baso % (Auto) 0.7, Absolute Neuts (auto) 2.7, Nucleated RBC % 0 05/21/21 05:50: Sodium 139, Potassium 4.1, Chloride 106, Carbon Dioxide 30.0, Anion Gap 3 L, BUN 15, Creatinine 0.92, Est GFR (MDRD) Af Amer 76, Est GFR (MDRD) Non-Af 62, BUN/Creatinine Ratio 16.3, Glucose 109 H, Calcium 8.6 Rhythm: EKG: ECHO: Stress Test: Cardiac Cath: PCI: CT Surgery: Holter monitor: EPS: PPM: CXR: Chest CT Scan: Radiography Diagnostic Testing: Radiology Impression Chest X-Ray 05/20/21 12:06 IMPRESSION: Patchy bilateral perihilar infiltrates worse in the right infrahilar region. Electronically Signed: Vahid Gallegos MD at 12:39 EDT , Service support , Physical Exam Const alert, oriented x3 and healthy appearing Orientation / Consciousness: awake HEENT normocephalic Eyes PERRL Neck no lymphadenopathy, supple and no JVD Chest inspection of chest normal and palpation of chest normal Resp normal respiratory effort Cardio regular rate, regular rhythm, S1 normal heart sound, S2 normal heart sound and no murmurs Palpation: normal PMI Rate: regular rate Rhythm: regular rhythm GI normal to inspection, nondistended, normoactive bowel sounds no CVA tenderness Groin / Perineum Exam: ecchymosis Back/Spine no CVA tenderness Extremity normal to inspection Skin no rashes or lesions noted Neuro CN's II-XII intact bilaterally Psych mental status grossly normal Assessment & Plan Assessment/Plan (1) Chest pain: PLAN: She underwent a cardiac catheterization which demonstrated the following: Normal left main coronary artery. Left anterior descending artery with diffuse disease with almost 50% stenosis. Ostial left circumflex artery in the nondominant vessel with 70% stenosis Diffuse right coronary artery disease with slow flow and at most 30% stenosis. Preserved left ventricular systolic function. Based on the above angiographic findings I would suggest that we aggressively manage medical therapy with high intensity statin, beta-woodrow and calcium woodrow due to the slow flow. (2) HTN (hypertension), benign: PLAN: Her blood pressure appears to be under good control at this particular time. Would recommend that we continue the same medications for now. Thank you for allowing me to participate in the care of your patient. Please don't hesitate to call if any issues arise.
[2021-05-21] MEDS: Aspirin E.C. 81 MG Tablet PO (09:08)
[2021-05-21] MEDS: Metoprolol Tartrate 50 MG Tablet PO (09:08)
[2021-05-21] MEDS: Multivitamins,Ther W-Minerals Tablet 1 TABLET PO (09:08)
[2021-05-21] MEDS: amLODIPine 10 MG Tablet PO (09:08)
[2021-05-21] MEDS: Cholecalciferol (VIT D3) 25 MCG TABLET (1,000 UNITS) 50 MCG PO (09:08)
[2021-05-21] MEDS: Pantoprazole Sodium 20 MG Tablet PO (09:09)
--- NOTE | 2021-05-21 09:35 | DS.PCM_ITS ---
Providers Date of Admission: 05/20/21 Primary Care Physician: JOSUÉ Christy Reason For Visit: CHEST PAIN Diagnosis Discharge Diagnosis (1) Chest pain: Status: Acute Code(s): R07.9 - Chest pain, unspecified (2) HTN (hypertension), benign: Status: Acute Code(s): I10 - Essential (primary) hypertension Medications at Discharge Home Medications cholecalciferol (vitamin D3) 2,000 unit PO DAILY 01/27/20 metoprolol tartrate 50 mg PO BID 01/27/20 multivitamin with minerals 1 ea PO DAILY 01/27/20 pantoprazole 20 mg PO DAILY 01/27/20 albuterol sulfate 90 mcg/actuation aerosol inhaler 2 puff INHALATION Q6H PRN 03/05/20 beclomethasone dipropionate 40 mcg/actuation HFA breath activated aerosol 2 inh INHALATION DAILY g 03/05/20 amlodipine 10 mg PO DAILY #30 tab 05/21/21 aspirin 81 mg PO DAILY #30 tab 05/21/21 atorvastatin 40 mg PO QHS #30 tab 05/21/21 lisinopril 2.5 mg PO DAILY #30 tab 05/21/21 metformin 1,000 mg PO BID #60 tab 05/21/21 Hospital Course Operations None Procedures Cardiac catheterization Summary of Care Provided Minutes Spent on Discharge: 45 Hospital Course: ERWIN RODRIGUEZ, is an 81 F with a PMH as outlined who presents with a complaint of left sided chest pain. Chest pain started about 2 hours prior to admission, and was left sided and radiated down her left arm. She denied any associated shortness of breath, lightheadedness, dizziness, nausea or vomiting. Review of systems is otherwise negative. Vitals showed BP of 131/76, ID of 60, RR of 16 and she was saturating at 96% on room air. CBC showed wbc of 4.6, hb of 13.2, platelets of 148. EKG showed no acute ST changes, but initial high sensitivity troponin was elevated at 88. CXR showed patchy bilateral perihilar infiltrates worse in the right infrahilar region. Cardiology was consulted. Patient is being admitted to be managed for nonstemi. SHe had an emergent cardiac cath which showed coronary artery disease with no high grade stenosis but slow flow noted throughout. Plan per cardiology was for medical management. Her statin dose was increased and amlodipine was increased to 10mg daily, and she was continued on her metoprolol.She was also started on lisinopril 2.5mg daily. A1C checked was 6.7, and so her metformin was increased to 1000mg bid. She remained stable, and was discharged home on 05/21/2021. She is to follow up with her PCP and busher helper in 2-4 weeks. Patient was seen and examined prior to discharge. She had no complaints and felt well, and review of systems was otherwise negative. Labs and vitals reviewed, home meds reviewed and reconciled. Physical Exam Const alert, oriented x3 and no apparent distress General Appearance: cooperative Exam Limitations: no limitations HEENT normocephalic, head/scalp atraumatic, hearing grossly normal bilaterally, moist oral mucous membranes and oropharynx normal Eyes PERRL, EOMs intact bilaterally and conjunctivae normal Neck no lymphadenopathy Resp normal respiratory effort, no retractions, no use of accessory muscles and clear to auscultation bilaterally Cardio regular rate, regular rhythm, S1 normal heart sound, S2 normal heart sound and no murmurs GI normal to inspection, nondistended, normoactive bowel sounds, soft to palpation, non-tender and non-distended Extremity normal to inspection, full ROM and no clubbing, cyanosis or edema Skin no rashes or lesions noted, no wounds and skin turgor normal Neuro oriented x3, CN's II-XII intact bilaterally and moves all extremities Sensorium / Orientation: awake and alert Psych affect normal Weight / BMI Weight Weight: 168 lb 3.403 oz Body Mass Index (BMI) 31.2 ABG / Lab / Microbiology Data Result Diagrams: 05/21/21 05:50 05/21/21 05:50 Laboratory: Laboratory Results - last 24 hr 05/20/21 11:30: WBC 4.6, RBC 4.61, Hgb 13.2, Hct 41.7, MCV 90.5, MCH 28.6, MCHC 31.7 L, RDW Std Deviation 47.8 H, RDW Coeff of Mg 14.6, Plt Count 148 L, MPV 11.3, Immature Gran % (Auto) 0.400, Neut % (Auto) 66.0, Lymph % (Auto) 24.2, [place] % (Auto) 8.1, Eos % (Auto) 0.9, Baso % (Auto) 0.4, Absolute Neuts (auto) 3.0, Absolute Lymphs (auto) 1.10, Nucleated RBC % 0 05/20/21 11:30: Sodium 138, Potassium 3.9, Chloride 107, Carbon Dioxide 27.0, Anion Gap 4 L, BUN 16, Creatinine 0.88, Estim Creat Clear Calc 37.83, Est GFR (MDRD) Af Amer 79, Est GFR (MDRD) Non-Af 65, BUN/Creatinine Ratio 18.1, Glucose 160 H, Calcium 8.9, Troponin I High Sens 88.0 H* 05/20/21 20:54: POC Glucose 133 H 05/21/21 05:50: WBC 4.4, RBC 4.32, Hgb 12.7, Hct 39.2, MCV 90.7, MCH 29.4, MCHC 32.4, RDW Std Deviation 48.6 H, RDW Coeff of Mg 14.6, Plt Count 143 L, MPV 11.2, Immature Gran % (Auto) 0.500, Neut % (Auto) 61.7, Lymph % (Auto) 26.7, M bryan % (Auto) 9.0, Eos % (Auto) 1.4, Baso % (Auto) 0.7, Absolute Neuts (auto) 2.7, Absolute Lymphs (auto) 1.18, Nucleated RBC % 0 05/21/21 05:50: Sodium 139, Potassium 4.1, Chloride 106, Carbon Dioxide 30.0, Anion Gap 3 L, BUN 15, Creatinine 0.92, Estim Creat Clear Calc 36.19, Est GFR (MDRD) Af Amer 76, Est GFR (MDRD) Non-Af 62, BUN/Creatinine Ratio 16.3, Glucose 109 H, Calcium 8.6 05/21/21 06:39: POC Glucose 111 H Radiography Diagnostic Testing: Radiology Impression Chest X-Ray 05/20/21 12:06 IMPRESSION: Patchy bilateral perihilar infiltrates worse in the right infrahilar region. Electronically Signed: Vahid Gallegos MD at 12:39 EDT , Service support , D/C Instructions Discharge Diet: Low fat / Low cholesterol Discharge Activity: Return to Normal Activity Weight Bearing Status: Weight bearing as tolerated Call your doctor if you observe: Fever of 101 or Higher, Shortness of breath, Swelling in the ankles and Increased palpitations (irregular heartbeat) Meaningful Use Info Meaningful Use Diagnoses (Choose all that apply): AMI AMI/Post PCI/Angioplasty Aspirin given w/in 24hrs of arrival?: Yes ASA at discharge?: Yes Antiplatelet Therapy at Discharge:: No Reason Antiplatelet Therapy not ordered:: per cardiology Statins at discharge?: Yes Epi/ARB at discharge?: Yes Beta Sissy at discharge?: Yes Done w/ Acute GA measure.: Yes Documented LVEF (%): 65 Discharge Plan Admission Admit Date/Time: 05/20/21 16:26 Primary Reason for Your Visit: nonstemi Attending Provider: Lizeth Fisher Primary Care Provider: Luz Marina Schmidt NP Instructions Patient Instructions: Endoscopic Plantar Fasciotomy ..., Exercising After a Heart Attack, ED Heart Disease Risk Factors Discharge Orders/Prescriptions Prescriptions: New aspirin 81 mg tablet,chewable 81 mg PO DAILY Qty: 30 RF: 1 atorvastatin 40 mg tablet 40 mg PO QHS Qty: 30 RF: 1 amlodipine 10 mg tablet 10 mg PO DAILY Qty: 30 RF: 1 lisinopril 2.5 mg tablet 2.5 mg PO DAILY Qty: 30 RF: 1 metformin 1,000 mg tablet 1,000 mg PO BID Qty: 60 RF: 1 Continued Qvar RediHaler 40 mcg/actuation HFA aerosol breath activated 2 inh INHALATION DAILY RF: 0 albuterol sulfate [ProAir HFA] 90 mcg/actuation HFA aerosol inhaler 2 puff INHALATION Q6H PRN (Reason: Shortness Of Breath) RF: 0 pantoprazole 20 MG tablet 20 mg PO DAILY RF: 0 metoprolol tartrate 50 MG tablet 50 mg PO BID RF: 0 multivitamin with minerals 1 EACH tablet 1 ea PO DAILY RF: 0 cholecalciferol (vitamin D3) 2,000 UNIT capsule 2,000 unit PO DAILY RF: 0 Discontinued metformin 500 MG tablet 500 mg PO BID RF: 0 atorvastatin 10 MG tablet 10 mg PO DAILY RF: 0 amlodipine 5 MG tablet 5 mg PO DAILY RF: 0 Referrals / Follow Up: Kiran Tate MD [STAFF PHYSICIAN] - Within 1 Month Luz Marina Schmidt NP, GEOSPATIAL PROGRAM MANAGEMENT OFFICER-C [Primary Care Provider] - Within 2 Weeks Disposition Disposition (needs filled in before D/C Order can be placed): Home, Self Care Charges/Coding Visit Charges Inpatient E&M: 90694 Disch Hosp
--- NOTE | 2021-05-21 10:02 | CASEMGMT ---
[place] assessment: Face to Face with patient for initial transition planning/care coordination assessment. RN JAYA introduced self and role at [facility], pt voices understanding and consents to assessment. Pt is sitting up in bed in no distress on room air. Care providers, pharmacy, and demographics verified. Presentation: Pt c/o chest pain radiating down left arm for about 1.5hr Admitting dx: Chest pain PCP: Luz Marina Schmidt Specialists: bee Davis Preferred [facility]acy: [facility] Insurance: AeR Prescription Benefit: AeR Living Will/HPOA: Pt states does not have LW/HPOA and declines AD info, stating 'I have it all at home.' LNOK: Fish Sidhu, ; Mariam Gallagher, daughter Living Arrangements: Pt states lives with in 1 story home with no steps in and states no concerns at home. Pt states is independent with ADL's. Transportation: Pt states drives self and states no transportation concerns. DME/HHC: Pt states has the following DME: cane, walker, grab bars, and shower chair. Pt states does not use current DME and states no need for any further DME. Pt states no hx of SNF but has had HHC in the past s/p leg fracture. Pt states no concerns with going home at time of discharge. Pt is retired. Pt states does not smoke cigarettes or drink ETOH. Pt voices no further concerns/needs. CM to follow for any further discharge planning/needs. Advised pt to ask for CM if any further questions/concerns/needs arise, voices understanding. Pt Goal: Home Plan[place]
[2021-05-21] MEDS: Budesonide Respules 0.5 MG/2 ML AMPUL.NEB. INHALATION (10:37)
[2021-05-21 10:56] LABS: Cholesterol 101 mg/dL (200); High Density Lipoprotein 28 mg/dL; Triglycerides 199 mg/dL; Very Low Density Lipoprotein 40 mg/dL (5-40)
[2021-05-21 10:57] LABS: Hemoglobin A1c 6.7 % (3.8-5.6)
[2021-05-21 11:45] LABS: Bedside Glucose 156 mg/dL (70-110)
== END 2021-05-21 12:18 | disposition home or self-care (01) | DRG 282 ==
LOC: ED 13:30 → PCU 14:27
PROVIDERS: Admitting Provider Student in an Organized Health Care Education/Training Program; Emergency Provider Emergency Medicine; PCP Registered Nurse; Referring Provider Internal Medicine Cardiovascular Disease; Visit Provider Student in an Organized Health Care Education/Training Program
DX: I21.4 Non-ST elevation (NSTEMI) myocardial infarction (principal); I25.110 Atherosclerotic heart disease of native coronary artery with unstable angina pectoris; K21.9 Gastro-esophageal reflux disease without esophagitis; M19.90 Unspecified osteoarthritis, unspecified site; J45.909 Unspecified asthma, uncomplicated; J84.10 Pulmonary fibrosis, unspecified; E11.22 Type 2 diabetes mellitus with diabetic chronic kidney disease; I12.9 Hypertensive chronic kidney disease with stage 1 through stage 4 chronic kidney disease, or unspecified chronic kidney disease; N18.2 Chronic kidney disease, stage 2 (mild); M06.9 Rheumatoid arthritis, unspecified; E78.5 Hyperlipidemia, unspecified; Z79.899 Other long term (current) drug therapy; Z79.84 Long term (current) use of oral hypoglycemic drugs
CPT/HCPCS: 36415; 71045; 80048; 80061; 82962; 83036; 84484; 85025; 93005; 93458; 94640; 99152; 99153; 99285; J7030; J7040; Q9967; A4216; C1769; C1894

== ENCOUNTER → 2021-07-08 12:14 | Outpatient (CLI) | payer MEDICARE, SELFPAY ==
--- NOTE | 2021-07-08 12:16 | BI_ITS ---
MAMMOGRAPHY - BILATERAL SCREENING 3-D TOMOSYNTHESIS REASON FOR EXAM: Female, 81 years old. SCREENING PERTINENT HISTORY: No significant family history. TECHNIQUE: 2-D mammograms and 3-D Tomosynthesis of the breast (s) were performed. CAD was performed. COMPARISON: 07/06/2020 FINDINGS: The breast composition is composed of scattered fibroglandular density. Scattered benign calcifications are seen. No dense spiculated masses or suspicious microcalcifications are identified. No architectural distortion is identified. There is no skin thickening or retraction. There has been no significant change since the prior study. BI/SCRN MAMM (CAD)W/ROBERT BILAT IMPRESSION: No mammographic signs of malignancy. Routine yearly mammograms recommended. ASSESSMENT CATEGORY: BIRADS Category 1: Negative. A letter regarding these results will be sent to the patient by the facility within 30 days. FOLLOW UP RECOMMENDATION: Yearly follow up mammogram recommended. (A) Approximately 10% of breast cancers are not detected by mammography. A normal mammogram should not delay biopsy of a clinically suspicious abnormality. Electronically Signed: Brandon Umanzor MD at 18:11 EDT Tel , Service support ,
== END ==
PROVIDERS: PCP Registered Nurse; Referring Provider Registered Nurse; Visit Provider Registered Nurse
DX: Z12.31 Encounter for screening mammogram for malignant neoplasm of breast (principal)
CPT/HCPCS: 77063; 77067

== ENCOUNTER 2021-10-31 12:56 | Outpatient (CLI) | payer MEDICARE, SELFPAY ==
--- NOTE | 2021-10-31 12:58 | ECHOD_ITS ---
Reason For Study: MURMUR Procedure This was a 2D Doppler, Color Flow transthoracic echocardiogram. Exam performed in department. Left Ventricle Normal LV size. Left ventricular systolic function is normal. The estimated ejection fraction is 55 %. Stage 1 diastolic dysfunction. No regional wall motion abnormalities noted. Right Ventricle Normal RV size. Normal systolic function. Atria Normal left atrium. Normal right atrium. Mitral Valve Normal mitral valve. Tricuspid Valve Normal tricuspid valve. Mild (1+) tricuspid valve insufficiency. Pulmonary artery systolic pressure is 26 mmHg. Aortic Valve Trisinus/trileaflet aortic valve. Mild focal aortic valve calcification. Pulmonic Valve Normal pulmonic valve. Great Vessels Normal aortic root. The pulmonary artery is normal size. Normal inferior vena cava. Pericardium/Pleural No pericardial effusion. MMode/2D Measurements & Calculations LVIDd: 4.1 cm IVSd: 1.1 cm Ao root diam: 3.5 cm LVIDs: 2.9 cm LVPWd: 0.98 cm RVDd: 2.9 cm FS: 29.2 % LAV(MOD-bp): 61.4 ml LVAd ap4: 25.1 cm2 SV(MOD-sp4): 48.5 ml LAV(MOD-bp) Indexed: 36.0 ml/m2 LVLd ap4: 7.3 cm LAV(MOD-sp2): 73.6 ml EDV(MOD-sp4): 70.3 ml LAV(MOD-sp4): 47.5 ml EDV(sp4-el): 72.7 ml LVAs ap4: 12.2 cm2 LVLs ap4: 5.9 cm ESV(MOD-sp4): 21.9 ml ESV(sp4-el): 21.4 ml EF(MOD-sp4): 68.9 % EF(sp4-el): 70.6 % SV(sp4-el): 51.3 ml LA A4 area: 19.1 cm2 LA dimension(2D): 4.2 cm RA A4 area: 11.3 cm2 Doppler Measurements & Calculations MV E max baldev: 68.7 cm/sec Lat Peak E' Baldev: 6.5 cm/sec Med Peak E' Baldev: 3.5 cm/sec MV A max baldev: 91.7 cm/sec E/E' lat: 10.5 E/E' med: 19.7 MV E/A: 0.75 MV V2 max: 95.3 cm/sec Ao V2 max: 163.1 cm/sec LV V1 max: 117.0 cm/sec MV max P.6 mmHg Ao max P.6 mmHg LV V1 max P.5 mmHg MV V2 mean: 55.6 cm/sec Ao V2 mean: 105.7 cm/sec LV V1 mean P.7 mmHg MV mean P.4 mmHg Ao mean P.0 mmHg LV V1 mean: 76.7 cm/sec MV V2 VTI: 31.5 cm Ao V2 VTI: 30.3 cm LV V1 VTI: 22.7 cm TR max baldev: 237.7 cm/sec MV P1/2t-pr_phl: 142.7 msec TR max P.6 mmHg ECHO/Echo Complete Interpretation Summary Normal LV size. Left ventricular systolic function is normal. The estimated ejection fraction is 55 %. Stage 1 diastolic dysfunction. Pulmonary artery systolic pressure is 26 mmHg. Mild focal aortic valve calcification. Ordering Physician: Alexa Haji Referring Physician: DAMIÁN CARVER Performed By: Page Vital, RDCS, RVT
== END 2021-10-31 23:59 | disposition short-term general hospital (02) ==
PROVIDERS: PCP Registered Nurse; Referring Provider Physician Assistant Medical; Visit Provider Physician Assistant Medical
DX: R01.1 Cardiac murmur, unspecified (principal); I25.10 Atherosclerotic heart disease of native coronary artery without angina pectoris; Z98.890 Other specified postprocedural states
CPT/HCPCS: 93306

== ENCOUNTER 2021-11-26 12:59 | Observation (INO) | payer MEDICARE, SELFPAY ==
[2021-11-26] VITALS (10 sets, daily range): BP systolic 113–120; BP diastolic 68–73; PULSE 60–71; RESP 15–24; TEMP 36.2–36.9; O2SAT 93–95; BMI 27.8; BMI 29.2
--- NOTE | 2021-11-26 13:30 | RAD_ITS ---
STUDY: X-RAY CHEST REASON FOR EXAM: Female, 81 years old. Cp TECHNIQUE: Single AP portable view of the chest. COMPARISON: Comparison is made with prior study dated 05/20/2021. FINDINGS: Persistent increased interstitial markings in both lung bases with areas of confluence worse in the right infrahilar region. This is suggestive of progressive interstitial fibrosis. There is no demonstrated pleural abnormality. Normal size heart. Normal mediastinum and madeline. Normal visualized pulmonary arteries. There is atherosclerotic calcification of the aortic arch with tortuosity. There are diffuse degenerative changes of the visualized thoracic spine. There is degenerative osteoarthritis of the bilateral shoulders. Presents of bilateral rotator cuff surgery. There is no demonstrated abnormality of the visualized soft tissue structures of the upper abdomen. RAD/Chest 1 View IMPRESSION: Progressive increase interstitial markings at the lung bases worse on the right side suggestive of progressive interstitial scarring. Electronically Signed: Vahid Gallegos MD at 14:24 EST ,
--- NOTE | 2021-11-26 14:08 | EKG12_ITS ---
Test Reason : CHEST PAIN Blood Pressure : / mmHG Vent. Rate : 059 BPM Atrial Rate : 059 BPM P-R Int : 180 ms QRS Dur : 132 ms QT Int : 442 ms P-R-T Axes : 021 032 014 degrees QTc Int : 437 ms Sinus bradycardia Right bundle branch block Abnormal ECG Confirmed by GISELA BANDA, TONEY ([id number]), writer editor DAMARIS AVILA ([id number]) on 11/28/2021 8:14:17 AM Referred By: SHANE Confirmed By:TONEY HIGGINS MD
--- NOTE | 2021-11-26 14:19 | ED.VIS.CHEST ---
HPI History of Present Illness Chief Complaint: Chest Pain Informant: patient Narrative Narrative: Patient with chest pain. She describes that as pain or pressure in the front of her chest. She had it yesterday and she has had it today. It radiates to the left arm. It lasted until she took nitroglycerin yesterday. She is a very nonspecific informant. She states she takes some medicine for this but does not know the name of it. I am pretty sure this is Ranexa after I look at her medical record. She states she had a heart catheterization somewhere in the last year. It showed something that might have been a blockage. A stent was not done. She is on medicines but does not know the plan if these medicines do not work. Medicines were evidently changed dosages but she is not sure what medicine change dose or when that change occurred. After looking in her chart it looks like she had a heart catheterization in May that showed a 50% LAD lesion and a 70% circumflex ostial lesion. She was placed on Ranexa. I believe this is the medicine that was increased but I do not know when. I cannot get from her if there is anything specific that makes the pain worse. Nitroglycerin did make it better. [facility] Medical History (Updated 11/26/21 @ 16:[address] 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 Carpal tunnel syndrome Chronic kidney disease, stage 3 Diabetes mellitus, type 2 HTN (hypertension), benign left hand surgery Pancreatitis Pulmonary fibrosis Rheumatoid arthritis Right hand surgery Shingles Home Medications cholecalciferol (vitamin D3) 2,000 unit PO DAILY 01/27/20 [History Last Taken 11/26/21] metoprolol tartrate 50 mg PO BID 01/27/20 [History Last Taken 11/26/21] multivitamin with minerals 1 ea PO DAILY 01/27/20 [History Last Taken 11/26/21] pantoprazole 20 mg PO DAILY 01/27/20 [History Last Taken 11/26/21] beclomethasone dipropionate 40 mcg/actuation HFA breath activated aerosol 2 inh INHALATION DAILY g 03/05/20 [History Last Taken 11/26/21] aspirin 81 mg PO DAILY #30 tab 05/21/21 [Rx Last Taken 11/26/21] metformin 1,000 mg PO BID #60 tab 05/21/21 [Rx Last Taken 11/26/21] amlodipine 10 mg tablet 10 mg PO DAILY #90 tab 06/24/21 [Rx Last Taken 11/26/21] atorvastatin 40 mg tablet 40 mg PO QHS tab 06/24/21 [History Last Taken 11/26/21] ranolazine 1,000 mg tablet,extended release,12 hr 1,000 mg PO BID #180 tab 07/09/21 [Rx Last Taken 11/26/21] calcium carbonate 600 mg calcium (1,500 mg) tablet 600 mg PO DAILY 10/16/21 [History Last Taken 11/26/21] nitroglycerin 0.4 mg sublingual tablet 0.4 mg SUBLINGUAL Q5-15M PRN #25 tab 10/16/21 [Rx Last Taken 11/26/21 12:00] Allergy/AdvReac Type Severity Reaction Status Date / Time lisinopril AdvReac Unknown cough Verified 11/26/21 13:02 morphine AdvReac feels Verified 11/26/21 13:02 drunk Family History Mother Enlarged heart Asthma Father Lupus Aneurysm Sister Asthma Rheumatoid arthritis Osteoarthritis Surgical History (Updated 11/26/21 @ 14:32 by Eliane Livingston) H/O hand surgery H/O left knee surgery H/O right knee surgery H/O: hysterectomy History of arthroplasty of both shoulders History of bladder surgery History of left heart catheterization (05/20/21) Hx of appendectomy Hx of cholecystectomy Hx of removal of ovary Social History Smoking Status: Never smoker ROS ROS ED Constitutional Constitutional ED: Denies fever(s) or subjective ENT ENT ED: Denies rhinorrhea or sore throat Cardiovascular Cardiovascular: Reports as per HPI and chest pain Respiratory/Chest Respiratory/Chest: Denies dyspnea Gastrointestinal Gastrointestinal: Denies nausea or vomiting Genitourinary Genitourinary ED: Denies dysuria Musculoskeletal Musculoskeletal: Reports other Details: When her chest pain comes on it does radiate to the left shoulder and down the left arm to above the elbow on occasion but not every time. ; Denies arthralgias, myalgias or neck pain Neurologic Neurologic: Denies headache(s), paresthesias or weakness Psychiatric Psychiatric: Denies anxiety Endocrine Endocrinology: Denies polydipsia or polyuria Hematologic/Lymphatic Hematologic/Lymphatic: Denies easy bleeding or easy bruising Allergic/Immunologic Allergic/Immunologic ED: Denies mouth swelling or urticaria EXAM Physical Exam Const Vital Signs: 11/26/21 13:00 11/26/21 14:00 11/26/21 14:20 Temperature 97.2 F L Temperature Source Temporal Pulse Rate 60 61 Respiratory Rate 15 24 H Respiratory Effort Respiratory Pattern Blood Pressure 113/73 115/68 Blood Pressure Mean 86 83 Pulse Ox 95 93 Oxygen Delivery Method Room Air Room Air Room Air 11/26/21 14:28 11/26/21 14:51 11/26/21 16:00 Temperature Temperature Source Pulse Rate 62 64 Respiratory Rate 22 H 20 H Respiratory Effort Normal Non-Labored Respiratory Pattern Normal Blood Pressure 114/73 119/73 Blood Pressure Mean 86 88 Pulse Ox 93 95 Oxygen Delivery Method Room Air Room Air Positive well nourished and well developed; Negative for unkempt General Appearance ED: well developed and NAD; Negative for unkempt HEENT Reports moist mucous membranes normocephalic Eyes General Eye ED: Negative for pale conjunctiva or scleral icterus Neck no JVD Chest Wall palpation of chest normal Chest: Negative for tenderness Resp normal respiratory effort Effort and Inspection: respiratory distress Cardio regular rate and regular rhythm GI normal to inspection, nondistended, normoactive bowel sounds, soft to palpation and non-tender Extremity General Extremety ED: Negative for tenderness Neuro Sensorium / Orientation: awake and alert Psych mental status grossly normal Appearance: Negative for unkempt Skin no rashes or lesions noted Heart Score History: Moderately Suspicious ECG: Nonspecific Repolarization Age: >/= 65 years Risk Factors: >/= 3 Risk Factors or History of CAD Troponin: </= Normal Limit Score: 6 MDM MDM MDM Narrative Medical decision making narrative: Patient's blood work shows mild anemia. Electrolytes are overall unremarkable. Glucose is controlled at 82. Troponin was within normal at 25. Repeat is being done. X-ray shows chronic changes. Patient's recheck. She states she is feeling well now. However, when I look at her chart it sounds like she has diffuse to the disease that may be breaking through Ranexa. She has a high heart score. I discussed case with hospitalist and patient will be admitted. Lab Data Attestation: I reviewed the patient's lab results. Labs: Laboratory Results - last 24 hr 11/26/21 11/26/21 11/26/21 14:20 14:20 16:00 WBC 5.1 RBC 3.87 L Hgb 11.7 L Hct 35.5 L MCV 91.7 MCH 30.2 MCHC 33.0 RDW Std Deviation 51.9 H RDW Coeff of Mg 15.5 H Plt Count 162 MPV 10.8 Immature Gran % (Auto) 0.400 Neut % (Auto) 65.8 Lymph % (Auto) 23.1 [place] % (Auto) 8.3 Eos % (Auto) 1.6 Baso % (Auto) 0.8 Absolute Neuts (auto) 3.3 Absolute Lymphs (auto) 1.17 Nucleated RBC % 0 Sodium 136 Potassium 4.4 Chloride 105 Carbon Dioxide 26.0 Anion Gap 5 BUN 16 Creatinine 1.03 H Estim Creat Clear Calc 33.88 Est GFR (MDRD) Af Amer 66 Est GFR (MDRD) Non-Af 55 L BUN/Creatinine Ratio 15.5 Glucose 82 Calcium 9.1 Troponin I High Sens 25 24 Radiography Diagnostic Testing: Clinical Impression(s) from Imaging Studies Chest X-Ray 11/26/21 13:30 IMPRESSION: Progressive increase interstitial markings at the lung bases worse on the right side suggestive of progressive interstitial scarring. Electronically Signed: Vahid Gallegos MD at 14:24 EST , EKG Initial EKG: Comments: EKG done for chest pain read by me shows a normal sinus rhythm with slightly bradycardic rate at 59. No acute ST elevation or depression but there are some diffuse nonspecific changes and right bundle branch block. MS interval is normal. QRS duration is long 132 ms. QTc is normal at 437 ms. Discharge Plan Triage Chief Complaint: Chest Pain ED Provider: Toni Shahid Dx/Rx/DC Orders Clinical Impression: Chest pain Prescriptions: No Action Qvar RediHaler 40 mcg/actuation HFA aerosol breath activated 2 inh INHALATION DAILY RF: 0 atorvastatin 40 mg tablet 40 mg PO QHS RF: 0 amlodipine 10 mg tablet 10 mg PO DAILY Qty: 90 RF: 3 calcium carbonate [Calcium 600] 600 mg calcium (1,500 mg) tablet 600 mg PO DAILY RF: 0 nitroglycerin [Nitrostat] 0.4 mg tablet, sublingual 0.4 mg sublingual Q5-15M PRN (Reason: chest pain) Qty: 25 RF: 3 pantoprazole 20 MG tablet 20 mg PO DAILY RF: 0 metoprolol tartrate 50 MG tablet 50 mg PO BID RF: 0 multivitamin with minerals 1 EACH tablet 1 ea PO DAILY RF: 0 cholecalciferol (vitamin D3) 2,000 UNIT capsule 2,000 unit PO DAILY RF: 0 aspirin 81 mg tablet,chewable 81 mg PO DAILY Qty: 30 RF: 1 metformin 1,000 mg tablet 1,000 mg PO BID Qty: 60 RF: 1 ranolazine 1,000 mg tablet extended release 12 hr 1,000 mg PO BID Qty: 180 RF: 3 Primary Care Provider: Luz Marina Schmidt NP Referrals: Luz Marina Schmidt NP, [facility] [Primary Care Provider] - Disposition Disposition: Acute Care Hospital [facility]
[2021-11-26] MEDS: Aspirin 81 MG TAB.CHEW 324 MG PO (14:29)
[2021-11-26 14:33] LABS: Absolute Lymphocyte Count 1.17 X10^3/uL (0.83-4.51); Absolute Neutrophil Count 3.3 X10^3/uL (2.0-7.7); Basophil# 0.04 X10^3/uL; Basophil% 0.8 % (0-1); Eosinophil# 0.08 X10^3/uL; Eosinophils% 1.6 % (0-5); Hematocrit 35.5 % (37-47); Hemoglobin 11.7 g/dL (12.0-15.0); Lymphocyte # 1.17 X10^3/ul (0.83-4.51); Lymphocyte % 23.1 % (19-41); Mean Corpuscular Hgb 30.2 pg (27.0-32.0); Mean Corpuscular Volume 91.7 fL (81-99); Mean Platelet Vol. 10.8 fl (6.2-12.0); Monocyte# 0.42 X10^3/uL; Monocyte% 8.3 % (0-10); NRBC Flagged by Analyzer 0 % (0-5); Neutrophil # 3.34 X10^3/uL (2.7-7.7); Neutrophil % 65.8 % (47-70); Platelet Count 162 K/mm3 (150-450); RBC Distribution Width CV 15.5 % (11.6-14.6); RBC Distribution Width SD 51.9 fl (35.1-43.9); Red Blood Count 3.87 M/mm3 (4.2-5.4); White Blood Count 5.1 K/mm3 (4.4-11.0)
[2021-11-26 14:53] LABS: Anion Gap 5 (5-15); BUN 16 mg/dL (7-18); BUN/Creat Ratio 15.5 RATIO (10-20); Calcium,Total 9.1 mg/dL (8.5-10.1); Chloride 105 mmol/L (98-107); Creatinine, Serum 1.03 mg/dL (0.55-1.02); EST Glomerular Filtration Rate 55 mL/min (>60); Est Glom Filt Rate - Afr Amer 66 mL/min (>60); Estimated Creatinine Clearance 33.88 ml/min; Glucose 82 mg/dL (74-106); Potassium 4.4 mmol/L (3.5-5.1); Sodium Level 136 mmol/L (136-145); Troponin-I HS 25 pg/mL (3.0-54.0)
[2021-11-26 16:26] LABS: Troponin-I HS 24 pg/mL (3.0-54.0)
--- NOTE | 2021-11-26 16:26 | PCM.HP.STD ---
HPI - General General Date of Admission: 11/26/21 Date of Service: 11/26/21 Chief Complaint: Chest pain HPI Narrative The patient is an 81 y/o F w/ PMHx: Diabetes mellitus type II, AZUCENA on CPAP q HS, recent 09/2021 COVID illness, HTN, HLD, CKD stage III unclear subtype, Pulmonary fibrosis and Asthma, CAD without prior intervention, GERD who presents to the [facility] ED on 11/26/21 with history of ongoing chest discomfort described as a pressure anteriorly rated 8/10 in severity with onset yesterday on day of presentation with radiation to the left upper extremity with self administration of nitroglycerin with improvement following but given recurrent event prompted cardiology call with recommendation for her to present to the ED for evaluation. Patient currently notes chest pain is resolved. Patient has been following with cardiology for chest discomfort and has had medication adjustments including increase of her Norvasc and she has been placed on Ranexa with also adjustments. Last intervention noted 05/2021 cardiac catheterization performed per Dr. Tate with noted normal left main coronary artery, LAD with diffuse disease with 50% stenosis, ostial left circumflex in the nondominant vessel with 70% stenosis, diffuse RCA disease with slow flow and at most 30% stenosis, preserved LV systolic function with at that time recommended aggressive medical management with high intensity statin, beta-woodrow and calcium woodrow due to slow flow. Usually 10/31/2021 echocardiogram recently obtained noting normal LV size, normal LV systolic function, EF 55%, stage I diastolic dysfunction, PASP 26 mmHg, mild focal AV calcification. Work-up in the ED included T 97.2, heart rate 60, BP 113/73, respiratory rate 15, 95% on room air, CBC with WBC 5.1, hemoglobin 11.7, platelet 160 without marked shift, BMP with BUN/creatinine 16/1.03 otherwise not marked appearing, troponin initial 24 with repeat delta troponin pending, EKG with sinus rhythm with no acute evidence of ischemia, chest x-ray with progressive increased interstitial markings at the lung bases worse on the right side suggestive of progressive interstitial scarring. In the ED patient administered aspirin 324 mg p.o. x1. [facility] Medical History (Updated 11/26/21 @ 18:[address] Zoey Oliver MD) Acid reflux Arteriosclerotic heart disease (ASHD) Arthritis Asthma Atherosclerotic heart disease [place] coronary artery w/angina pectoris Carpal tunnel syndrome Chronic kidney disease, stage 3 Diabetes mellitus, type 2 HTN (hypertension), benign left hand surgery Pancreatitis Pulmonary fibrosis Rheumatoid arthritis Right hand surgery Shingles Home Medications cholecalciferol (vitamin D3) 2,000 unit PO DAILY 01/27/20 [History Last Taken 11/26/21] metoprolol tartrate 50 mg PO BID 01/27/20 [History Last Taken 11/26/21] multivitamin with minerals 1 ea PO DAILY 01/27/20 [History Last Taken 11/26/21] pantoprazole 20 mg PO DAILY 01/27/20 [History Last Taken 11/26/21] beclomethasone dipropionate 40 mcg/actuation HFA breath activated aerosol 2 inh INHALATION DAILY g 03/05/20 [History Last Taken 11/26/21] aspirin 81 mg PO DAILY #30 tab 05/21/21 [Rx Last Taken 11/26/21] metformin 1,000 mg PO BID #60 tab 05/21/21 [Rx Last Taken 11/26/21] amlodipine 10 mg tablet 10 mg PO DAILY #90 tab 06/24/21 [Rx Last Taken 11/26/21] atorvastatin 40 mg tablet 40 mg PO QHS tab 06/24/21 [History Last Taken 11/26/21] ranolazine 1,000 mg tablet,extended release,12 hr 1,000 mg PO BID #180 tab 07/09/21 [Rx Last Taken 11/26/21] calcium carbonate 600 mg calcium (1,500 mg) tablet 600 mg PO DAILY 10/16/21 [History Last Taken 11/26/21] nitroglycerin 0.4 mg sublingual tablet 0.4 mg SUBLINGUAL Q5-15M PRN #25 tab 10/16/21 [Rx Last Taken 11/26/21 12:00] Allergy/AdvReac Type Severity Reaction Status Date / Time lisinopril AdvReac Unknown cough Verified 11/26/21 13:02 morphine AdvReac feels Verified 11/26/21 13:02 drunk Family History Mother Enlarged heart Asthma Father Lupus Aneurysm Sister Asthma Rheumatoid arthritis Osteoarthritis Surgical History H/O hand surgery H/O left knee surgery H/O right knee surgery H/O: hysterectomy History of arthroplasty of both shoulders History of bladder surgery History of left heart catheterization (05/20/21) Hx of appendectomy Hx of cholecystectomy Hx of removal of ovary Social History (Updated 11/26/21 @ 18:[address] Zoey Oliver MD) household members: spouse Smoking Status: Never smoker alcohol intake: never substance use type: does not use ROS ROS Narrative Admission Review of Systems: CONSTITUTIONAL: No weight loss, fever, chills, + weakness or fatigue. HEENT: Eyes: No visual loss, blurred vision, double vision or yellow sclerae. Ears, Nose, Throat: No hearing loss, sneezing, congestion, runny nose or sore throat. SKIN: No rash or itching, lesions, wounds. CARDIOVASCULAR: + chest pain, chest pressure or chest discomfort, No palpitations, edema, orthopnea, syncopal events. RESPIRATORY: No shortness of breath, cough or sputum, wheezing, hemoptysis. GASTROINTESTINAL: No anorexia, nausea, vomiting or diarrhea, abdominal pain, melena, BRBPR. GENITOURINARY: No dysuria, frequency, urgency or retention. NEUROLOGICAL: No headache, dizziness, syncope, paralysis, ataxia, numbness or tingling in the extremities, focal weakness, change in bowel or bladder control, seizure. MUSCULOSKELETAL: + muscle, back pain, joint pain or stiffness. HEMATOLOGIC: + anemia, bleeding or bruising. LYMPHATICS: No enlarged nodes. No history of splenectomy. PSYCHIATRIC: No history of depression or anxiety. ENDOCRINOLOGIC: No reports of sweating, cold or heat intolerance. No polyuria or polydipsia. ALLERGIES: + history of asthma, hives, eczema or rhinitis. Vital Signs Vital Signs Vital Signs: 11/26/21 13:00 11/26/21 14:00 11/26/21 14:20 Temperature 97.2 F L Temperature Source Temporal Pulse Rate 60 61 Respiratory Rate 15 24 H Respiratory Effort Respiratory Pattern Blood Pressure 113/73 115/68 Blood Pressure Mean 86 83 Pulse Ox 95 93 Oxygen Delivery Method Room Air Room Air Room Air 11/26/21 14:28 11/26/21 14:51 11/26/21 16:00 Temperature Temperature Source Pulse Rate 62 64 Respiratory Rate 22 H 20 H Respiratory Effort Normal Non-Labored Respiratory Pattern Normal Blood Pressure 114/73 119/73 Blood Pressure Mean 86 88 Pulse Ox 93 95 Oxygen Delivery Method Room Air Room Air Weight Weight: 152 lb Body Mass Index (BMI) 27.8 Physical Exam Narrative Physical Examination: General: Awake, alert, oriented x 3 and cooperative, seated upright in the ED bed in no apparent distress, notes chest pain currently resolved. Skin: Normal color, normal turgor, no icterus, no cyanosis. HEENT: AT/NC, EOMI, PERRLA, MMM, no carotid bruits or JVD noted. Lungs: Mildly diminished, greater bases, appropriate effort, crackles likely secondary to fibrotic disease throughout, worse bases, no evidence of any distress, no rales, ronchi or wheezing. Heart: Currently regular rate and rhythm; no gallop, rub audible. Abdomen: Soft, overweight, NTTP, ND, normal BS, no HSM. Extremities: No cyanosis, clubbing, or edema. Neurological: Patient awake, alert, oriented x 3, cognitive function intact; pupils equally reactive to light and accommodation, cranial nerves II-XII grossly normal, moving all 4 extremities, no focal deficits, strength preserved. Psychiatric: Affect appears mildly fatigued otherwise normal, did intermittently become a little anxious during evaluation when new things were discussed but calm and when they were described, no acute evidence of depressive feelings. Results Lab / Micro Data Result Diagrams: 11/26/21 14:20 11/26/21 14:20 Labs: Laboratory Results - last 24 hr 11/26/21 14:20: WBC 5.1, RBC 3.87 L, Hgb 11.7 L, Hct 35.5 L, MCV 91.7, MCH 30.2, MCHC 33.0, RDW Std Deviation 51.9 H, RDW Coeff of Mg 15.5 H, Plt Count 162, MPV 10.8, Immature Gran % (Auto) 0.400, Neut % (Auto) 65.8, Lymph % (Auto) 23.1, [place] % (Auto) 8.3, Eos % (Auto) 1.6, Baso % (Auto) 0.8, Absolute Neuts (auto) 3.3, Absolute Lymphs (auto) 1.17, Nucleated RBC % 0 11/26/21 14:20: Sodium 136, Potassium 4.4, Chloride 105, Carbon Dioxide 26.0, Anion Gap 5, BUN 16, Creatinine 1.03 H, Estim Creat Clear Calc 33.88, Est GFR (MDRD) Af Amer 66, Est GFR (MDRD) Non-Af 55 L, BUN/Creatinine Ratio 15.5, Glucose 82, Calcium 9.1, Troponin I High Sens 25 Radiology Impression Chest X-Ray 11/26/21 13:30 IMPRESSION: Progressive increase interstitial markings at the lung bases worse on the right side suggestive of progressive interstitial scarring. Electronically Signed: Vahid Gallegos MD at 14:24 EST , Assessment & Plan Assessment/Plan (1) Chest pain: QUALIFIERS: Chest pain type: unspecified Qualified Code(s): R07.9 - Chest pain, unspecified PLAN: The patient is an 81 y/o F w/ PMHx: Diabetes mellitus type II, AZUCENA on CPAP q HS, recent 09/2021 COVID illness, HTN, HLD, CKD stage III unclear subtype, Pulmonary fibrosis and Asthma, CAD without prior intervention, GERD who presents to the [facility] ED on 11/26/21 with history of ongoing chest discomfort described as a pressure anteriorly rated 8/10 in severity with onset yesterday on day of presentation with radiation to the left upper extremity with self administration of nitroglycerin with improvement following but given recurrent event prompted cardiology call with recommendation for her to present to the ED for evaluation. #1. Chest Pain: EKG in ED SR without acute evidence of acute ischemia, CXR w/ progressive fibrotic disease, initial trop 24 with delta pending. Will admit to PCU, place on a monitored bed to assure no acute myocardial infarction with serial cardiac enzymes and EKGs. Given timeline of catheterization will pursue cardiac stress testing and if any concerns of inducible ischemia will request cardiology involvement. If cardiac enzymes do change then would hold on stress testing request cardiology involvement immediately. FLP in AM. Magnesium level requested. ASA, NG, morphine. #2. Diabetes mellitus type II: Will hold metformin, continue ADA until NPO status, accu checks with ISS. #3. Normocytic anemia: Admission hemoglobin 11.7, baseline appears low 12's, will benefit from outpatient iron study evaluations. #4. Chronic asthma with underlying pulmonary fibrosis: Following with pulmonary outpatient, will continue as needed albuterol, transition to budesonide ATC therapies while inpatient, encourage head of bed and I-S. #5. Hypertension: We will continue patient home metoprolol and Norvasc regimen with adjustments as needed, as needed IV hydralazine. #6. Hyperlipidemia: We will continue patient home statin therapy, FLP in AM. #7. Chronic Kidney Disease Stage III, unclear subtype: Admission BUN/Cr 16/1.03, baseline renal function 0.8-1.0, repeat BMP in AM. #8. AZUCENA: CPAP nightly. #9. GERD: We will continue patient home PPI. #10 DVT prophylaxis: SCDs, Lovenox. Charges/Coding Visit Charges OBSV E&M: 45510 Initial observation care L3
--- NOTE | 2021-11-26 16:35 | NURSING ---
DR CALZADA FOR DR TORRE
--- NOTE | 2021-11-26 16:54 | NURSING ---
PCU OBS CP WHITE
[2021-11-26 17:31] LABS: Magnesium 1.5 mg/dL (1.6-2.6)
--- NOTE | 2021-11-26 17:51 | EKG12_ITS ---
Test Reason : ADMISSION Blood Pressure : / mmHG Vent. Rate : 070 BPM Atrial Rate : 070 BPM P-R Int : 204 ms QRS Dur : 138 ms QT Int : 456 ms P-R-T Axes : 030 039 -01 degrees QTc Int : 492 ms Normal sinus rhythm Right bundle branch block Abnormal ECG Confirmed by GISELA BANDA, TONEY ([id number]), brands editor DAMARIS AVILA ([id number]) on 11/28/2021 8:30:10 AM Referred By: BLAKE Confirmed By:TONEY HIGGINS MD
[2021-11-26 20:20] LABS: Troponin-I HS 29 pg/mL (3.0-54.0)
[2021-11-26] MEDS: 0.9% Saline Lock 10 ML Syringe IV (20:54)
[2021-11-26] MEDS: Metoprolol Tartrate 50 MG Tablet PO (22:51)
[2021-11-26] MEDS: Atorvastatin Calcium 40 MG Tablet PO (22:51)
[2021-11-26] MEDS: Ranolazine 500 MG Tablet 1000 MG PO (22:52)
[2021-11-26] MEDS: 0.9% Normal Saline 1,000 ML 75 ML IV (23:57)
[2021-11-27] VITALS (9 sets, daily range): BP systolic 109–114; BP diastolic 71–90; PULSE 61–71; RESP 16–18; TEMP 36.3–36.7; O2SAT 92–100
[2021-11-27 02:23] LABS: Bedside Glucose 131 mg/dL (70-110)
[2021-11-27] MEDS: Magnesium Sulfate 4gm/100mL 4 GM/100 ML IV.SOLN. IV (04:04)
--- NOTE | 2021-11-27 05:00 | EKG12_ITS ---
Test Reason : AM EKG Blood Pressure : / mmHG Vent. Rate : 064 BPM Atrial Rate : 064 BPM P-R Int : 196 ms QRS Dur : 140 ms QT Int : 478 ms P-R-T Axes : 031 039 -06 degrees QTc Int : 493 ms Normal sinus rhythm Right bundle branch block Abnormal ECG Confirmed by GISELA BANDA, TONEY ([id number]), editor in chief newspaper DAMARIS AVILA ([id number]) on 11/28/2021 8:27:50 AM Referred By: DR CALZADA Confirmed By:TONEY HIGGINS MD
[2021-11-27] MEDS: Aspirin 81 MG TAB.CHEW PO (05:48)
[2021-11-27] MEDS: Ranolazine 500 MG Tablet 1000 MG PO (05:49)
[2021-11-27 06:26] LABS: Bedside Glucose 142 mg/dL (70-110)
[2021-11-27 06:54] LABS: Absolute Lymphocyte Count 0.85 X10^3/uL (0.83-4.51); Absolute Neutrophil Count 3.1 X10^3/uL (2.0-7.7); Basophil# 0.03 X10^3/uL; Basophil% 0.7 % (0-1); Eosinophil# 0.08 X10^3/uL; Eosinophils% 1.8 % (0-5); Hemoglobin 11.5 g/dL (12.0-15.0); Lymphocyte # 0.85 X10^3/ul (0.83-4.51); Lymphocyte % 19.3 % (19-41); Mean Corp Hgb Conc 32.9 g/dL (32-36); Mean Corpuscular Hgb 29.9 pg (27.0-32.0); Mean Corpuscular Volume 91.1 fL (81-99); Mean Platelet Vol. 10.8 fl (6.2-12.0); Monocyte# 0.36 X10^3/uL; Monocyte% 8.2 % (0-10); NRBC Flagged by Analyzer 0 % (0-5); Neutrophil # 3.06 X10^3/uL (2.7-7.7); Neutrophil % 69.5 % (47-70); Platelet Count 143 K/mm3 (150-450); RBC Distribution Width CV 15.4 % (11.6-14.6); RBC Distribution Width SD 51.5 fl (35.1-43.9); Red Blood Count 3.84 M/mm3 (4.2-5.4); White Blood Count 4.4 K/mm3 (4.4-11.0)
[2021-11-27 07:21] LABS: ALB/GLOB Ratio 0.5 RATIO (0.9-2.4); AST(SGOT) 33 U/L (15-37); Alanine Aminotransfer ALT/SGPT 32 U/L (13-56); Albumin, Serum 2.8 g/dL (3.2-5.0); Alkaline Phosphatase 55 U/L (45-117); Anion Gap 5 (5-15); BUN 19 mg/dL (7-18); BUN/Creat Ratio 19.7 RATIO (10-20); Calcium,Total 8.3 mg/dL (8.5-10.1); Chloride 105 mmol/L (98-107); Cholesterol 78 mg/dL (200); Creatinine, Serum 0.97 mg/dL (0.55-1.02); EST Glomerular Filtration Rate 59 mL/min (>60); Est Glom Filt Rate - Afr Amer 71 mL/min (>60); Estimated Creatinine Clearance 34.32 ml/min; Globulin 5.1 g/dL (2.2-4.2); Glucose 127 mg/dL (74-106); High Density Lipoprotein 29 mg/dL; Potassium 3.6 mmol/L (3.5-5.1); Protein, Total 7.9 g/dL (6.4-8.2); Sodium Level 137 mmol/L (136-145); Triglycerides 149 mg/dL; Very Low Density Lipoprotein 30 mg/dL (5-40)
[2021-11-27] MEDS: Budesonide Respules 0.5 MG/2 ML AMPUL.NEB. INHALATION (07:23)
--- NOTE | 2021-11-27 08:00 | DS.PCM_ITS ---
Providers Date of Admission: 11/26/21 Date of Discharge: 11/27/21 Primary Care Physician: JOSUÉ Christy Reason For Visit: CHEST PAIN Diagnosis Discharge Diagnosis (1) Chest pain: Status: Acute Code(s): R07.9 - Chest pain, unspecified Qualifiers: Chest pain type: unspecified Qualified Code(s): R07.9 - Chest pain, unspecified Medications at Discharge Home Medications cholecalciferol (vitamin D3) 2,000 unit PO DAILY 01/27/20 multivitamin with minerals 1 ea PO DAILY 01/27/20 pantoprazole 20 mg PO DAILY 01/27/20 beclomethasone dipropionate 40 mcg/actuation HFA breath activated aerosol 2 inh INHALATION DAILY g 03/05/20 aspirin 81 mg PO DAILY #30 tab 05/21/21 metformin 1,000 mg PO BID #60 tab 05/21/21 amlodipine 10 mg tablet 10 mg PO DAILY #90 tab 06/24/21 atorvastatin 40 mg tablet 40 mg PO QHS tab 06/24/21 ranolazine 1,000 mg tablet,extended release,12 hr 1,000 mg PO BID #180 tab 07/09/21 calcium carbonate 600 mg calcium (1,500 mg) tablet 600 mg PO DAILY 10/16/21 nitroglycerin 0.4 mg sublingual tablet 0.4 mg SUBLINGUAL Q5-15M PRN #25 tab 10/16/21 metoprolol tartrate 50 mg PO BID #0 tab 11/27/21 Hospital Course Summary of Care Provided Hospital Course: This is a 81-year-old female with multiple comorbidities was admitted with chest discomfort pressure-like 8/10 intensity with radiation to left upper extremity lasting for about 15 to 20 minutes. It got better with sublingual nitroglycerin. Patient was admitted in PCU. Twelve-lead EKG in ER shows sinus rhythm nonspecific ST-T changes, chronic right BBB, QRS 132 ms, QTC 451 ms. Serial troponins normal. Patient further had nuclear myocardial perfusion stress test reported within normal limit. EF 83%. Patient advised to continue medical treatment. She has coronary artery disease. She has other comorbidities as which include diabetes mellitus type 2 on Metformin. Glucose in acceptable limit. Normocytic chronic anemia, chronic asthma with underlying pulmonary fibrosis. She follows Dr. Davis. She also has hypertension and dyslipidemia, chronic kidney disease stage IIIa, possible sleep apnea on CPAP and GERD. Discharge medication reconciliation done. Discharge follow-up instructions completed. Discharge process discussed with the patient and all questions were answered to patient's satisfaction. Follow-up Dr. Davis in pulmonary clinic and Alexa Haji/Dr. Tate in cardiology office within a month. Total time spent, exact 35 minutes on discharge meds reconciliation, ex amination, coordination of care with nurses and ancillary staff, review of imaging and blood test and discussion with the patient on follow-up instructions Physical Exam Narrative Seen and examined Chest pain is resolved. Lasted for about 10 to 15 minutes yesterday. plating operator shows sinus rhythm. General: Alert, Oriented x3, Cooperative HEENT: Atraumatic, PERRLA, EOMI, Normocephalic Oral: No Gingival or Mucosal Lesions/ Ulcerations Neck: Supple, No JVD, Negative Carotid Bruits Lungs: Air entry diminished in bilateral lung bases. No crepitation/rhonchi Cardiovascular: Sinus rhythm with PVCs, Normal S1, Normal S2, LLSB systolic murmur. Abdomen: Bowel Sounds Present, Soft, Non Tender, Non-Distended : No renal angle tenderness. No suprapubic tenderness. Extremities: Mild bilateral ankle pitting edema, Capillary Refill Less than 3 Seconds Skin: No rashes, No breakdown Musculoskeletal: No Tenderness to Palpation of Joints or Extremities Neurological: Cranial nerves II-XII grossly intact, DTR 2+/4 and Symmetrical, Neuro grossly intact Psych/Mental Status: Normal Affect, Appropriate. Weight / BMI Weight Weight: 153 lb 14.122 oz Body Mass Index (BMI) 29.2 ABG / Lab / Microbiology Data Result Diagrams: 11/27/21 05:26 11/27/21 06:26 Laboratory: Laboratory Results - last 24 hr 11/26/21 14:20: WBC 5.1, RBC 3.87 L, Hgb 11.7 L, Hct 35.5 L, MCV 91.7, MCH 30.2, MCHC 33.0, RDW Std Deviation 51.9 H, RDW Coeff of Mg 15.5 H, Plt Count 162, MPV 10.8, Immature Gran % (Auto) 0.400, Neut % (Auto) 65.8, Lymph % (Auto) 23.1, [place] % (Auto) 8.3, Eos % (Auto) 1.6, Baso % (Auto) 0.8, Absolute Neuts (auto) 3.3, Absolute Lymphs (auto) 1.17, Nucleated RBC % 0 11/26/21 14:20: Sodium 136, Potassium 4.4, Chloride 105, Carbon Dioxide 26.0, Anion Gap 5, BUN 16, Creatinine 1.03 H, Estim Creat Clear Calc 33.88, Est GFR (MDRD) Af Amer 66, Est GFR (MDRD) Non-Af 55 L, BUN/Creatinine Ratio 15.5, Glucose 82, Calcium 9.1, Troponin I High Sens 25 11/26/21 16:00: Troponin I High Sens 24 11/26/21 16:00: Magnesium 1.5 L 11/26/21 19:50: Troponin I High Sens 11/26/21 22:48: POC Glucose 131 H 11/27/21 05:26: WBC 4.4, RBC 3.84 L, Hgb 11.5 L, Hct 35.0 L, MCV 91.1, MCH 29.9, MCHC 32.9, RDW Std Deviation 51.5 H, RDW Coeff of Mg 15.4 H, Plt Count 143 L, MPV 10.8, Immature Gran % (Auto) 0.500, Neut % (Auto) 69.5, Lymph % (Auto) 19.3, [place] % (Auto) 8.2, Eos % (Auto) 1.8, Baso % (Auto) 0.7, Absolute Neuts (auto) 3.1, Absolute Lymphs (auto) 0.85, Nucleated RBC % 0 11/27/21 05:26: Sodium 137, Potassium 3.6, Chloride 105, Carbon Dioxide 27.0, Anion Gap 5, BUN 19 H, Creatinine 0.97, Estim Creat Clear Calc 34.32, Est GFR (MDRD) Af Amer 71, Est GFR (MDRD) Non-Af 59 L, BUN/Creatinine Ratio 19.7, Glucose 127 H, Calcium 8.3 L, Total Bilirubin 0.50, AST 33, ALT 32, Alkaline Phosphatase 55, Total Protein 7.9, Albumin 2.8 L, Globulin 5.1 H, Albumin/Globulin Ratio 0.5 L, Triglycerides 149, Cholesterol 78, LDL Cholesterol 19, VLDL Cholesterol 30, HDL Cholesterol 29 L 11/27/21 05:51: POC Glucose 142 H Radiography Diagnostic Testing: Radiology Impression Chest X-Ray 11/26/21 13:30 IMPRESSION: Progressive increase interstitial markings at the lung bases worse on the right side suggestive of progressive interstitial scarring. Electronically Signed: Vahid Gallegos MD at 14:24 EST , Meaningful Use Info Meaningful Use Diagnoses (Choose all that apply): None applicable Discharge Plan Admission Admit Date/Time: 11/26/21 16:36 Primary Reason for Your Visit: Atypical chest pain Attending Provider: Garry Lam Primary Care Provider: Luz Marina Schmidt CATERING COOK Discharge Orders/Prescriptions Prescriptions: Continued Qvar RediHaler 40 mcg/actuation HFA aerosol breath activated 2 inh INHALATION DAILY RF: 0 atorvastatin 40 mg tablet 40 mg PO QHS RF: 0 amlodipine 10 mg tablet 10 mg PO DAILY Qty: 90 RF: 3 calcium carbonate [Calcium 600] 600 mg calcium (1,500 mg) tablet 600 mg PO DAILY RF: 0 nitroglycerin [Nitrostat] 0.4 mg tablet, sublingual 0.4 mg sublingual Q5-15M PRN (Reason: chest pain) Qty: 25 RF: 3 pantoprazole 20 MG tablet 20 mg PO DAILY RF: 0 multivitamin with minerals 1 EACH tablet 1 ea PO DAILY RF: 0 cholecalciferol (vitamin D3) 2,000 UNIT capsule 2,000 unit PO DAILY RF: 0 aspirin 81 mg tablet,chewable 81 mg PO DAILY Qty: 30 RF: 1 metformin 1,000 mg tablet 1,000 mg PO BID Qty: 60 RF: 1 metoprolol tartrate 50 MG tablet 50 mg PO BID Qty: 0 RF: 0 ranolazine 1,000 mg tablet extended release 12 hr 1,000 mg PO BID Qty: 180 RF: 3 Referrals / Follow Up: Luz Marina Schmidt NP, [employer]ERING COOK-C [Primary Care Provider] - Within 2 Weeks Alexa Haji PA, PA [PHYSICIAN SWITCHBOARD OPERATOR ASSISTANT] - Within 2 Weeks (For coronary artery disease) Disposition Disposition (needs filled in before D/C Order can be placed): Home, Self Care Charges/Coding Visit Charges OBSV E&M: 47101 Observation care discharge
[2021-11-27 08:19] LABS: Magnesium 2.3 mg/dL (1.6-2.6); Phosphorus 3.3 mg/dL (2.5-4.9)
--- NOTE | 2021-11-27 10:00 | PCM.DC ---
Discharge Instructions Diet Discharge Diet: 1800 Calorie Control Diet and 2000 mg Sodium Diet Activity Discharge Activity: Return to Normal Activity and May Not Drive Weight Bearing Status: Weight bearing as tolerated Dressing / Incision Call your doctor if you observe: Fever of 101 or Higher, Coldness, Increased Pain, Numbness or Tingling, Change in Color, Inability to urinate, Inability to have a bowel movement, Using more than 1 pad per hour, Shortness of breath, Dizziness, Fainting spells, Swelling in the ankles, Chest pain, Prolonged hiccupping, Increased palpitations (irregular heartbeat), Calf discomfort and Uncontrolled pain Follow Up Care Test Results: Test results from this visit will be discussed in further detail at your follow-up appointment, if applicable. Discharge Plan Admission Admit Date/Time: 11/26/21 16:36 Primary Reason for Your Visit: Atypical chest pain Attending Provider: Garry Lam Primary Care Provider: Luz Marina Schmidt NP Discharge Orders/Prescriptions Prescriptions: Continued Qvar RediHaler 40 mcg/actuation HFA aerosol breath activated 2 inh INHALATION DAILY RF: 0 atorvastatin 40 mg tablet 40 mg PO QHS RF: 0 amlodipine 10 mg tablet 10 mg PO DAILY Qty: 90 RF: 3 calcium carbonate [Calcium 600] 600 mg calcium (1,500 mg) tablet 600 mg PO DAILY RF: 0 nitroglycerin [Nitrostat] 0.4 mg tablet, sublingual 0.4 mg sublingual Q5-15M PRN (Reason: chest pain) Qty: 25 RF: 3 pantoprazole 20 MG tablet 20 mg PO DAILY RF: 0 multivitamin with minerals 1 EACH tablet 1 ea PO DAILY RF: 0 cholecalciferol (vitamin D3) 2,000 UNIT capsule 2,000 unit PO DAILY RF: 0 aspirin 81 mg tablet,chewable 81 mg PO DAILY Qty: 30 RF: 1 metformin 1,000 mg tablet 1,000 mg PO BID Qty: 60 RF: 1 metoprolol tartrate 50 MG tablet 50 mg PO BID Qty: 0 RF: 0 ranolazine 1,000 mg tablet extended release 12 hr 1,000 mg PO BID Qty: 180 RF: 3 Referrals / Follow Up: Luz Marina Schmidt NP, SHIP CONSTRUCTION TEACHER-C [Primary Care Provider] - Within 2 Weeks Alexa Haji, PA [PHYSICIAN WHEEL OF FORTUNE DEALER] - Within 2 Weeks (For coronary artery disease) Disposition Disposition (needs filled in before D/C Order can be placed): Home, Self Care
[2021-11-27] MEDS: Pantoprazole Sodium 20 MG Tablet PO (10:33)
[2021-11-27] MEDS: Metoprolol Tartrate 50 MG Tablet PO (10:33)
[2021-11-27] MEDS: amLODIPine 10 MG Tablet PO (10:33)
[2021-11-27 10:41] LABS: Bedside Glucose 164 mg/dL (70-110)
--- NOTE | 2021-11-27 12:48 | STRESSREP ---
Stress Test Report Date: 11-27-2021 Procedure: Pharmacologic stress nuclear imaging study Indications: Chest pain; CAD; pulmonary fibrosis; AZUCENA; COVID-19 Consent: Per the patient Procedure: The patient underwent pharmacologic (Regadenoson 0.4mg ) evaluation with a peak heart rate of 76 beats per minute (54%predicted maximal heart rate) and a peak blood pressure of 116/72 mmHg. The baseline ECG demonstrated sinus rhythm; right bundle branch block pattern. The peak pharmacologic ECG demonstrated no obvious ECG changes. There were no cardiac dysrhythmias pretest, during pharmacologic infusion, or recovery. There was a rare PAC during recovery. The examination was discontinued secondary to completion of protocol. Impression: 1. Pharmacologic (Regadenoson) evaluation 2. Peak pharmacologic ECG with continued right bundle branch block with no obvious ECG changes. 3. There was a rare PAC during recovery. 4. Nuclear images pending Myocardial perfusion imaging study: Technique: The patient was injected with 12.0 millicuries of technetium 99m Cardiolite and subsequently rest SPECT Cardiolite nuclear imaging was obtained in the horizontal long, vertical long, and short axis views. The patient underwent pharmacologic (Regadenoson) evaluation with a peak heart rate of 76 beats per minute (54% percent predicted maximal heart rate) and a peak blood pressure of 116/72 mmHg. The patient was injected with 34.6 millicuries of technetium 99m Cardiolite and subsequently stress SPECT Cardiolite nuclear imaging was obtained in the horizontal long, vertical long, and short axis views. A gated Cardiolite study at peak stress was obtained. Interpretation: Rest and stress SPECT Cardiolite nuclear imaging status post realignment, normalization, and attenuation correction demonstrate relative uniform tracer uptake and myocardial perfusion appearing within normal limits. There is end systolic thickening and brightening. The gated Cardiolite study demonstrates myocardial thickening and inward wall motion. The reported LVEF is 83%. Impression: 1. Rest and stress SPECT Cardiolite nuclear imaging demonstrate relative uniform tracer uptake and myocardial perfusion appearing within normal limits. 2. The gated Cardiolite study reports an LVEF of 83%. Comment: The patient experienced transient hypotension following Regadenoson/Lexiscan infusion which subsequently improved/normalized following IV fluid supplementation. This note was generated with [employer]ation software. It may contain incorrect words, spelling, and punctuation that were not noted in checking the note before signing.
== END 2021-11-27 14:16 | disposition home or self-care (01) ==
LOC: ED 16:37 → PCU 16:48
PROVIDERS: Admitting Provider Family Medicine; Emergency Provider Emergency Medicine; PCP Registered Nurse; Visit Provider Internal Medicine
DX: R07.89 Other chest pain (principal); M06.9 Rheumatoid arthritis, unspecified; E11.22 Type 2 diabetes mellitus with diabetic chronic kidney disease; J84.10 Pulmonary fibrosis, unspecified; N18.31 Chronic kidney disease, stage 3a; D64.9 Anemia, unspecified; I12.9 Hypertensive chronic kidney disease with stage 1 through stage 4 chronic kidney disease, or unspecified chronic kidney disease; I25.10 Atherosclerotic heart disease of native coronary artery without angina pectoris; J45.909 Unspecified asthma, uncomplicated; E78.5 Hyperlipidemia, unspecified; I45.10 Unspecified right bundle-branch block; Z79.82 Long term (current) use of aspirin; Z79.84 Long term (current) use of oral hypoglycemic drugs; Z79.899 Other long term (current) drug therapy; R94.31 Abnormal electrocardiogram [ECG] [EKG]; Z86.16 Personal history of COVID-19; G47.33 Obstructive sleep apnea (adult) (pediatric); K21.9 Gastro-esophageal reflux disease without esophagitis
CPT/HCPCS: 36415; 71045; 78452; 80048; 80053; 80061; 82962; 83735; 84100; 84484; 85025; 93005; 93017; 94640; 96360; 96361; 99218; 99285; A9500; J7030; J7040; A4216; G0378; J2785

== ENCOUNTER 2022-01-03 07:39 | Outpatient (CLI) | payer MEDICARE, SELFPAY ==
--- NOTE | 2022-01-03 07:42 | AAAS_ITS ---
Reason For Study: AAA family history Aorta Measurements Aorta Doppler Measurements Proximal aorta measures1.92cm x 2.18cm. in cross- Peak systolic flow velocities within the proximal sectional axis. aorta measure 85 cm/sec. Proximal aorta measures2.08cm. in longitudinal Peak systolic flow velocities within the mid aorta axis. measure 24 cm/sec. Mid aorta measures3.78cm x 3.89cm. in cross- Peak systolic flow velocities within the distal sectional axis. aorta measure 38 cm/sec. Mid aorta measures3.8cm. in longitudinal axis. Distal aorta measures2.23cm x 2.23cm. in cross- sectional axis. Distal aorta measures2.20cm. in longitudinal axis. Left Iliac Artery Left iliac artery measures 1.69cm x 1.51 cm. in the cross-sectional axis. Left iliac artery measures 1.26 cm. in the longitudinal axis. Peak systolic velocity in the left iliac artery measures 71 cm/sec. Very difficult to visualize LCIA. Right Iliac Artery Right iliac artery measures 1.23cm x 1.27 cm. in the cross-sectional axis. Right iliac artery measures 1.28 cm. in the longitudinal axis. Peak systolic velocity in the right iliac artery measures 73 cm/sec. VL/AAA Screening Interpretation Summary Mid abdominal aortic aneurysm 3.78 x 3.89cm diameter Left common iliac 1.69 x 1.51cm diameter,difficult to visualize. Normal flow ve locity Rigtht common iliac 1.23 x 1.27cm diameter. Normal flow velocity Ordering Physician: Ton Alan Referring Physician: Luz Marina Schmidt Performed By: Eliane Alan, RDCS, RVT
== END 2022-01-03 23:59 | disposition home or self-care (01) ==
LOC: CVS 07:41
PROVIDERS: PCP Registered Nurse; Referring Provider Nurse Practitioner Family; Visit Provider Nurse Practitioner Family
DX: Z00.00 Encounter for general adult medical examination without abnormal findings (principal); Z82.49 Family history of ischemic heart disease and other diseases of the circulatory system
CPT/HCPCS: 76706

== ENCOUNTER 2022-09-28 18:17 | Emergency (ER) | payer MEDICARE, SELFPAY ==
[2022-09-28 18:18] VITALS: BP 107/65; PULSE 76; RESP 18; TEMP 36.7; O2SAT 94; BMI 30.2
--- NOTE | 2022-09-28 18:28 | EDS_ITS ---
HPI HPI - URI History of Present Illness Chief Complaint: Cough Detail of Chief Complaint: COVID positive today. Generalized weakness. Informant: patient and family Onset/Context/Timing Onset: Days Context: Gradual Onset Timing: Continuous Current Severity: Mild Maximum Severity: Mild Associated Symptoms Associated Symptoms: Positive for Nasal Congestion, Myalgias, Shortness of Breath and Nonproductive cough; Negative for Nausea, Vomiting, Diarrhea, Chest Pain, Hemoptysis or Productive Cough Narrative Narrative: 82-year-old female history of pulmonary fibrosis, diabetes and hypertension. Has had URI symptoms for about 6 days since last Thursday. Initially thought it was a cold and thought it was influenza she tested today and was positive for COVID at home. Denies any vomiting or diarrhea. Nonproductive cough. No dysuria. Intermittent fevers. She has her and grandson at home. She is able to get around the house. She is eating and drinking fluids. Prior similar symptoms: Yes Recent Illness/Hospitalization: No ROS ROS ED ROS Narrative Cough, fever. Review of Systems ROS Unobtainable: Denies due to encephalopathy Constitutional Constitutional ED: Denies chills or fever(s) Eyes Eyes: Denies blurry vision ENT ENT ED: Denies ear pain Cardiovascular Cardiovascular: Denies chest pain or palpitations Respiratory/Chest Respiratory/Chest: Reports cough and dyspnea Gastrointestinal Gastrointestinal: Denies abdominal pain Genitourinary Genitourinary ED: Denies dysuria or hematuria Integumentary Denies abscess or Abrasions Neurologic Neurologic: Denies headache(s) Psychiatric Psychiatric: Denies anxiety Endocrine Endocrinology: Denies cold intolerance Hematologic/Lymphatic Hematologic/Lymphatic: Denies easy bleeding Allergic/Immunologic Allergic/Immunologic ED: Denies mouth swelling or tongue swelling PFSH PFS Medical History Acid reflux Arthritis Asthma Atherosclerotic heart disease of solomon coronary artery without angina pectoris Carpal tunnel syndrome Chronic kidney disease, stage 3 Diabetes mellitus, type 2 Essential hypertension left hand surgery Pancreatitis Pulmonary fibrosis Rheumatoid arthritis Shingles Home Medications cholecalciferol (vitamin D3) 50 mcg (2,000 unit) capsule 2,000 unit PO DAILY vitamin 01/27/20 [History Last Taken 11/26/21] multivitamin with minerals 1 ea PO DAILY vitamin 01/27/20 [History Last Taken 11/26/21] beclomethasone dipropionate 40 mcg/actuation HFA breath activated aerosol (Qvar RediHaler) 2 inh inhalation DAILY asthma 03/05/20 [History Last Taken 11/26/21] aspirin 81 mg chewable tablet 81 mg PO DAILY #30 tabs 05/21/21 [Rx Last Taken 11/26/21] metformin 1,000 mg tablet 1,000 mg PO BID #60 tabs 05/21/21 [Rx Last Taken 11/26/21] ranolazine 1,000 mg tablet,extended release,12 hr 1,000 mg PO BID #180 tabs 07/09/21 [Rx Last Taken 11/26/21] calcium carbonate 600 mg calcium (1,500 mg) tablet (Calcium) 600 mg PO DAILY supplement 10/16/21 [History Last Taken 11/26/21] nitroglycerin 0.4 mg sublingual tablet (Nitrostat) 0.4 mg sublingual Q5-15M PRN chest pain #25 tabs 10/16/21 [Rx Last Taken 11/26/21 12:00] metoprolol tartrate 50 mg tablet 50 mg PO BID heart #0 tabs 11/27/21 [Rx Last Taken 11/26/21] albuterol sulfate 90 mcg/actuation aerosol inhaler 2 puff inhalation Q6H PRN Wheezing 12/17/21 [History Last Taken Unknown] atorvastatin 40 mg tablet 40 mg PO QHS 06/24/22 [History Last Taken Unknown] isosorbide mononitrate 30 mg tablet,extended release 24 hr 30 mg PO DAILY #90 tabs 06/24/22 [Rx Last Taken Unknown] pantoprazole 40 mg tablet,delayed release 40 mg PO DAILY 06/24/22 [History Last Taken Unknown] amlodipine 10 mg tablet 10 mg PO DAILY #90 tabs 07/21/22 [Rx Last Taken Unknown] Allergy/AdvReac Type Severity Reaction Status Date / Time lisinopril AdvReac Unknown cough Verified 09/28/22 18:18 morphine AdvReac feels Verified 09/28/22 18:18 drunk Family History Mother Enlarged heart Asthma Father Lupus Aneurysm Sister Asthma Rheumatoid arthritis Osteoarthritis Surgical History H/O hand surgery H/O left knee surgery H/O right knee surgery H/O: hysterectomy History of arthroplasty of both shoulders History of bladder surgery History of left heart catheterization (05/20/21) Hx of appendectomy Hx of cholecystectomy Hx of removal of ovary Right hand surgery Social History household members: spouse Smoking Status: Never smoker alcohol intake: never substance use type: does not use EXAM Physical Exam Narrative Exam Narrative: 82-year-old female no acute distress. Accompanied by family. Vital signs are stable afebrile. Pulse ox is 94% on room air no hypoxia. H EENT exam unremarkable. Moist mucous membranes. Neck nontender no lymphadenopathy. No JVD. Lungs clear to auscultation bilaterally. Dry cough. Heart regular rhythm rate about 75 no murmur. Chest wall nontender. Abdomen soft nontender. Back nontender. Moving all 4 extremities. 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 Normal dorsi plantar flexion. Calves are nontender without edema. Neurologically she is awake and alert with no focal motor deficits. Const Vital Signs: 09/28/22 18:18 09/28/22 18:40 09/28/22 18:54 Temperature 98.1 F Temperature Source Temporal Pulse Rate 76 Respiratory Rate 18 Respiratory Effort Short of Breath Respiratory Depth Normal Respiratory Pattern Normal Blood Pressure 107/65 Blood Pressure Mean 79 Pulse Ox 94 92 Oxygen Delivery Method Room Air Room Air Room Air Positive well nourished and well developed; Negative for obese, cachectic or contractures General Appearance ED: well developed and NAD; Negative for cachectic, contractures, cyanotic, diaphoretic or pallor Nutritional Appearance: Negative for cachectic or obese HEENT Reports moist mucous membranes; Denies dry mucous membranes normocephalic and atraumatic; Negative for scalp tenderness Face and Sinus: Negative for sinus tenderness Mouth ED: No dry mucous membranes Mouth: No dry mucous membranes Teeth and Gingiva: Negative for caries Throat: posterior oropharynx normal Eyes PERRL and EOMs intact bilaterally General Eye ED: Negative for pale conjunctiva or scleral icterus Neck no lymphadenopathy, supple, no meningeal signs and no JVD General: Negative for anterior neck swelling or lymphadenopathy Resp normal respiratory effort and clear to auscultation bilaterally Effort and Inspection: Negative for retractions Auscultation: Negative for rales, rhonchi or wheezes Cardio S1 normal heart sound, S2 normal heart sound and no murmurs Rate: regular rate Rhythm: regular rhythm GI non-tender, non-distended and no masses Inspection: Negative for abdominal distention Auscultation: normoactive bowel sounds Palpation: soft; Negative for tender or guarding Back/Spine no CVA tenderness and normal ROM General Back: Negative for CVA tenderness Cervical Spine: Negative for cervical spine tenderness Thoracic Spine / Upper Back: Negative for thoracic spinal tenderness Lumbar Spine / Lower Back: Negative for lumbar spinal tenderness Sacrum: Negative for tenderness Extremity normal to inspection and full ROM General Extremety ED: Negative for cyanosis or tenderness General Extremity: Negative for cyanosis Neuro oriented x3, CN's II-XII intact bilaterally and no sensory deficits noted Sensorium / Orientation: alert, oriented to person, oriented to place and o riented to time; Negative for orientation impaired, lethargic or stuporous Motor Exam: strength 5/5 throughout Psych mental status grossly normal Appearance: Negative for other Attitude: No agitated Mood & Affect: Negative for depressed, anxious or tearful Skin General Skin Exam: Negative for jaundice or pallor Lesions: no lesions Rashes: no rashes Trauma: Negative for abrasion or laceration MDM MDM MDM Narrative Medical decision making narrative: 82-year-old female COVID-positive. Clinically looks well. Does not look septic or toxic. Does not look dehydrated. She and family states she is making it at home okay. She will be treated with IV fluids. Screening labs and chest x-ray to be obtained. At this time barring any significant lab abnormalities I think she will be okay to be discharged home. She is day 6 I do not think pack pack paxlovid would be of a significant relief for her. Exam unchanged at 7:30 PM. Discussed with patient and family. They are comfortable with her being discharged home. She will be given a dose of cough medication Robitussin prior to discharge. Fluids and rest. Return if feeling worse or significant short of breath otherwise follow-up with her primary care provider. Lab Data Attestation: I reviewed the patient's lab results. Lab results narrative: CBC White count 8.7. H&H 11.4 and 33.7 consistent with her chronic anemia. Platelets 188. Electrolytes unremarkable gap of 7. BUN and creatinine 18 and 1.1. Glucose 121. Chest x-ray chronic changes consistent with pulmonary fibrosis. Compared to prior chest x-ray no significant change. Labs: Laboratory Results - last 24 hr 09/28/22 09/28/22 18:36 18:36 WBC 8.7 RBC 3.69 L Hgb 11.4 L Hct 33.7 L MCV 91.3 MCH 30.9 MCHC 33.8 RDW Std Deviation 50.1 H RDW Coeff of Mg 15.0 H Plt Count 188 MPV 10.8 Immature Gran % (Auto) 0.900 Neut % (Auto) 71.8 H Lymph % (Auto) 13.7 L [place] % (Auto) 12.1 H Eos % (Auto) 1.0 Baso % (Auto) 0.5 Absolute Neuts (auto) 6.2 Absolute Lymphs (auto) 1.19 Nucleated RBC % 0 Sodium 137 Potassium 3.8 Chloride 104 Carbon Dioxide 26.0 Anion Gap 7 BUN 18 Creatinine 1.14 H Estim Creat Clear Calc 28.71 Est GFR (MDRD) Af Amer 59 L Est GFR (MDRD) Non-Af 48 L BUN/Creatinine Ratio 15.8 Glucose 121 H Calcium 8.3 L Radiography Diagnostic Testing: Chest x-ray, portable, single view interpreted by myself shows cardiomegaly with significant pulmonary fibrosis. I compared it to a prior chest x-ray from November and it was no significant change. Discharge Plan Triage Chief Complaint: Cough ED Provider: Jan Lopez Dx/Rx/DC Orders Clinical Impression: COVID-19, Chronic kidney disease, stage 3, Essential hypertension Instructions: Human Coronaviruses Prescriptions: No Action Qvar RediHaler 40 mcg/actuation HFA aerosol breath activated 2 inh INHALATION DAILY calcium carbonate [Calcium 600] 600 mg calcium (1,500 mg) tablet 600 mg PO DAILY nitroglycerin [Nitrostat] 0.4 mg tablet, sublingual 0.4 mg sublingual Q5-15M PRN (Reason: chest pain) Qty: 25 3RF Rx Instructions: do not exceed 3 doses per episode pantoprazole 40 mg tablet,delayed release (DR/EC) 40 mg PO DAILY atorvastatin 40 mg tablet 40 mg PO QHS Label Comments: TAKE 1 TABLET BY MOUTH ONCE DAILY AT BEDTIME isosorbide mononitrate 30 mg tablet extended release 24 hr 30 mg PO DAILY Qty: 90 3RF albuterol sulfate 90 mcg/actuation HFA aerosol inhaler 2 puff inhalation Q6H PRN (Reason: Wheezing) multivitamin with minerals 1 EACH tablet 1 ea PO DAILY cholecalciferol (vitamin D3) 2,000 UNIT capsule 2,000 unit PO DAILY aspirin 81 mg tablet,chewable 81 mg PO DAILY Qty: 30 1RF metformin 1,000 mg tablet 1,000 mg PO BID Qty: 60 1RF metoprolol tartrate 50 MG tablet 50 mg PO BID Qty: 0 0RF Rx Instructions: Hold for heart less than 60 or systolic blood pressure less than 100 mmHg. ranolazine 1,000 mg tablet extended release 12 hr 1,000 mg PO BID Qty: 180 3RF amlodipine 10 mg tablet 10 mg PO DAILY Qty: 90 3RF Primary Care Provider: Luz Marina Schmidt NP Referrals: Luz Marina Schmidt NP, [employer] [Primary Care Provider] - 1 Week if not improving Activity Restrictions/Additional Instructions: Plenty of fluids and rest. Tylenol for any fever and body aches. Follow-up with your primary care provider if not improving return if worse. Disposition Disposition: Home, Self Care
[2022-09-28] MEDS: 0.9% Normal Saline 1,000 ML 1000 ML IV (18:37)
[2022-09-28 18:40] VITALS: O2SAT 92
[2022-09-28 18:54] VITALS: O2SAT 95
[2022-09-28 19:02] LABS: Absolute Lymphocyte Count 1.19 X10^3/uL (0.83-4.51); Absolute Neutrophil Count 6.2 X10^3/uL (2.0-7.7); Basophil# 0.04 X10^3/uL; Basophil% 0.5 % (0-1); Eosinophil# 0.09 X10^3/uL; Hematocrit 33.7 % (37-47); Hemoglobin 11.4 g/dL (12.0-15.0); Lymphocyte # 1.19 X10^3/ul (0.83-4.51); Lymphocyte % 13.7 % (19-41); Mean Corp Hgb Conc 33.8 g/dL (32-36); Mean Corpuscular Hgb 30.9 pg (27.0-32.0); Mean Corpuscular Volume 91.3 fL (81-99); Mean Platelet Vol. 10.8 fl (6.2-12.0); Monocyte# 1.05 X10^3/uL; Monocyte% 12.1 % (0-10); NRBC Flagged by Analyzer 0 % (0-5); Neutrophil # 6.24 X10^3/uL (2.7-7.7); Neutrophil % 71.8 % (47-70); Platelet Count 188 K/mm3 (150-450); RBC Distribution Width SD 50.1 fl (35.1-43.9); Red Blood Count 3.69 M/mm3 (4.2-5.4); White Blood Count 8.7 K/mm3 (4.4-11.0)
--- NOTE | 2022-09-28 19:05 | RAD_ITS ---
EXAM: XR CHEST, 1 VIEW CLINICAL INDICATION: cough. covid TECHNIQUE: Frontal view of the chest. This report was created using [employer] report generation technology. COMPARISON: 11/26/2021 FINDINGS: LUNGS AND PLEURAL SPACES: Interstitial opacities are seen bilaterally breath minimally increased. No pneumothorax. No effusion. HEART: Cardiac silhouette is mildly enlarged in size. MEDIASTINUM: Central airways and mediastinal contour are unremarkable. BONES/JOINTS: Unremarkable. SOFT TISSUES: Unremarkable. RAD/Chest 1 View (Portable) IMPRESSION: Cardiomegaly with bilateral interstitial opacities which are minimally increased and may represent scar with overlying infectious process. There is no focal consolidation or effusion. Electronically Signed: Chris Elias MD at 19:28 EST ,
[2022-09-28 19:20] LABS: Anion Gap 7 (5-15); BUN 18 mg/dL (7-18); BUN/Creat Ratio 15.8 RATIO (10-20); Calcium,Total 8.3 mg/dL (8.5-10.1); Chloride 104 mmol/L (98-107); Creatinine, Serum 1.14 mg/dL (0.55-1.02); EST Glomerular Filtration Rate 48 mL/min (>60); Est Glom Filt Rate - Afr Amer 59 mL/min (>60); Estimated Creatinine Clearance 28.71 ml/min; Glucose 121 mg/dL (74-106); Potassium 3.8 mmol/L (3.5-5.1); Sodium Level 137 mmol/L (136-145)
[2022-09-28] MEDS: guaiFENesin/Codeine 5 ML UDC PO (19:45)
[2022-09-28 19:51] VITALS: PULSE 76; RESP 18; O2SAT 96
== END 2022-09-28 19:52 | disposition home or self-care (01) ==
PROVIDERS: Emergency Provider Emergency Medicine; PCP Registered Nurse; Visit Provider Emergency Medicine
DX: U07.1 COVID-19 (principal); E11.22 Type 2 diabetes mellitus with diabetic chronic kidney disease; N18.30 Chronic kidney disease, stage 3 unspecified; I25.10 Atherosclerotic heart disease of native coronary artery without angina pectoris; I12.9 Hypertensive chronic kidney disease with stage 1 through stage 4 chronic kidney disease, or unspecified chronic kidney disease; K21.9 Gastro-esophageal reflux disease without esophagitis; J45.909 Unspecified asthma, uncomplicated; Z79.82 Long term (current) use of aspirin; Z79.84 Long term (current) use of oral hypoglycemic drugs; Z79.899 Other long term (current) drug therapy
CPT/HCPCS: 71045; 80048; 85025; 96360; 99284; J7030

== ENCOUNTER 2023-02-25 16:46 | Emergency (ER) | payer MEDICARE, SELFPAY ==
[2023-02-25 16:46] VITALS: BP 129/68; PULSE 73; RESP 18; TEMP 36.1; O2SAT 96; BMI 29.5
--- NOTE | 2023-02-25 17:15 | EKG12_ITS ---
Test Reason : CP Blood Pressure : / mmHG Vent. Rate : 066 BPM Atrial Rate : 066 BPM P-R Int : 188 ms QRS Dur : 128 ms QT Int : 456 ms P-R-T Axes : 020 043 007 degrees QTc Int : 478 ms Normal sinus rhythm Right bundle branch block Abnormal ECG Confirmed by SARAH BANDA, TIN ([id number]), editorial intern DAMARIS AVILA ([id number]) on 02/26/2023 9:11:42 AM Referred By: Confirmed By:TIN SMITH MD
--- NOTE | 2023-02-25 17:16 | EDS_ITS ---
HPI History of Present Illness Chief Complaint: Chest Pain Informant: patient Narrative Narrative: Patient presents with chest pain. Triage note mentions a couple days but she tells me for 5 days of chest pain in the left chest and the front of the left arm to about mid bicep. She just states it just hurts. She cannot describe it any more than that. It does not go anywhere else. It does not get better or worse. It does not change except when she moves her arm. She cannot think of anything she did hurt this. She has some chronic dyspnea with exertion but this is not new. She has no lightheadedness. No diaphoresis. No nausea or vomiting. She denies any heart history. She takes a lot of medicines but is not sure what they are all for. I reviewed her list. She does have cholesterol diabetes and high blood pressure. She is also on room normalization. Yet she denies ever having a heart catheter or stents or any coronary artery disease or rhythm abnormalities. She is also on nitroglycerin. She denied any new medicines but then further on we found out she was started on a water pill and just took it for the first time today and she has 3 tablets because of water in the left side of her lung. She denied any lung disease but then we find out she has asthma. She is eating and drinking normally. No coughing. No fevers. [facility] Medical History Acid reflux Arthritis Asthma Atherosclerotic heart disease of [place] coronary artery without angina pectoris Carpal tunnel syndrome Chronic kidney disease, stage 3 Diabetes mellitus, type 2 Essential hypertension left hand surgery Pancreatitis Pulmonary fibrosis Rheumatoid arthritis Shingles Home Medications cholecalciferol (vitamin D3) 50 mcg (2,000 unit) capsule 2,000 unit PO DAILY vitamin 01/27/20 [History Last Taken 11/26/21] multivitamin with minerals 1 ea PO DAILY vitamin 01/27/20 [History Last Taken 11/26/21] beclomethasone dipropionate 40 mcg/actuation HFA breath activated aerosol (Qvar RediHaler) 2 inh inhalation DAILY asthma 03/05/20 [History Last Taken 11/26/21] aspirin 81 mg chewable tablet 81 mg PO DAILY #30 tabs 05/21/21 [Rx Last Taken 11/26/21] metformin 1,000 mg tablet 1,000 mg PO BID #60 tabs 05/21/21 [Rx Last Taken 11/26/21] ranolazine 1,000 mg tablet,extended release,12 hr 1,000 mg PO BID #180 tabs 07/09/21 [Rx Last Taken 11/26/21] calcium carbonate 600 mg calcium (1,500 mg) tablet (Calcium) 600 mg PO DAILY supplement 10/16/21 [History Last Taken 11/26/21] nitroglycerin 0.4 mg sublingual tablet (Nitrostat) 0.4 mg sublingual Q5-15M PRN chest pain #25 tabs 10/16/21 [Rx Last Taken 11/26/21 12:00] metoprolol tartrate 50 mg tablet 50 mg PO BID heart #0 tabs 11/27/21 [Rx Last Taken 11/26/21] albuterol sulfate 90 mcg/actuation aerosol inhaler 2 puff inhalation Q6H PRN Wheezing 12/17/21 [History Last Taken Unknown] pantoprazole 40 mg tablet,delayed release 40 mg PO DAILY 06/24/22 [History Last Taken Unknown] amlodipine 10 mg tablet 10 mg PO DAILY #90 tabs 07/21/22 [Rx Last Taken Unknown] meloxicam 15 mg tablet 15 mg PO DAILY 01/27/23 [History Last Taken Unknown] atorvastatin 40 mg tablet 40 mg PO QHS #90 tabs 02/10/23 [Rx Last Taken Unknown] furosemide 20 mg tablet 20 mg PO DAILY #3 tabs 02/23/23 [Rx Last Taken Unknown] Allergy/AdvReac Type Severity Reaction Status Date / Time lisinopril AdvReac Unknown cough Verified 02/25/23 16:48 morphine AdvReac feels Verified 02/25/23 16:48 drunk Family History Mother Enlarged heart Asthma Father Lupus Aneurysm Sister Asthma Rheumatoid arthritis Osteoarthritis Surgical History H/O hand surgery H/O left knee surgery H/O right knee surgery H/O: hysterectomy History of arthroplasty of both shoulders History of bladder surgery History of left heart catheterization (05/20/21) Hx of appendectomy Hx of cholecystectomy Hx of removal of ovary Right hand surgery Social History household members: spouse Smoking Status: Never smoker alcohol intake: never substance use type: does not use ROS ROS ED ROS Narrative A complete review of systems was performed and is negative except as documented in the history of present illness. Some specific details below. Constitutional: No recent fevers or chills. No malaise EYE: No discharge, visual complaints, or pain. ENT: No difficulty swallowing. No swelling. No pain. No reflux symptoms. CV: See history of present illness. It is irritated somewhat with left arm motion. Respiratory: See history of present illness. She has chronic dyspnea but denies it being different. GI: No abdominal pain. No nausea vomiting diarrhea. No blood in stool. : No frequency dysuria or hematuria. Musculoskeletal: No recent trauma. No pains. No swelling. Skin: No rash. Nondiaphoretic. Neuro: No weakness or numbness. Endocrine: No polyuria or polydipsia. EXAM Physical Exam Narrative Exam Narrative: CONSTITUTIONAL: Patient is nontoxic in appearance. The patient looks comfortable. Work of breathing looks normal. She carries on a normal conversation HEENT: No notable trauma. Mucous membranes moist. No sinus tenderness. No indication of pain with swallowing. EYES: No conjunctival injection. No proptosis. NECK:No JVD. No stridor. CARDIOVASCULAR: Regular rate. Regular rhythm. No notable murmur. No JVD. Peripheral pulses are normal. There is some mild chest wall tenderness but no rash. No lesions. No erythema or swelling. No subcu air. RESPIRATORY: No respiratory distress. Breathing is unlabored. No wheezes. No rhonchi. No rales. No pain with a deep breath. No chest wall tenderness. Despite having a history of fluid in the left side of her lungs her lungs actually sound pretty clear now. Even with a forced expiration I am not hearing wheezing either. GASTROINTESTINAL: Not distended. Bowel sounds are normal. No tenderness. No guarding. No rebound. No palpable mass. No bruit is heard. GENITOURINARY: No tenderness over the bladder. No CVA tenderness. MUSCULOSKELETAL: Atraumatic. No peripheral edema. No cord. No tenderness along the deep venous system. No asymmetry. No distended veins. NEUROLOGICAL: Patient is alert and appropriate. No focal deficit noted. SKIN: No noted rashes. No diaphoresis. PSYCHIATRIC: Patient is calm. Mood is appropriate. Const Vital Signs: 02/25/23 16:46 02/25/23 17:31 02/25/23 18:34 Temperature 97 F L Temperature Source Temporal Pulse Rate 73 73 Respiratory Rate 18 71 H Blood Pressure 129/68 H 118/69 Blood Pressure Mean 88 85 Pulse Ox 96 95 92 Oxygen Delivery Method Room Air Room Air Room Air MDM MDM MDM Narrative Medical decision making narrative: Patient CBC shows minimal anemia and minimal thrombocytopenia which are nonspecific and not likely the cause of her symptoms. Electrolytes are normal other than mild elevation in the creatinine at 1.44. This is just slightly above her baseline. With a history of CHF I do not want to give her a lot of IV fluids but she can slightly increase p.o. fluids. Patient's troponin is negative despite days of continual discomfort. Her BNP was essentially negative. My independent interpretation of her chest x-ray does show increased markings bilaterally. But when I looked at multiple old films it looks similar or maybe even a little bit better. Final reading is bilateral infiltrate atelectasis. However, the patient is not hypoxic. She has no fever. She has no high white count. I do not think this is representing pneumonia. I talk with the patient about options. She states now that she does not have any pain in the area she just has an annoyance. She thinks this is her arthritis acting up. She states he has arthritis of her knees and her shoulders. Since this has been constant, is worse with motion, her work-up is negative, she wants to go home I think this is reasonable. We discussed reasons to return. I do not think this represents cardiac chest pain. Lab Data Attestation: I reviewed the patient's lab results. Labs: Laboratory Results - last 24 hr 02/25/23 02/25/23 02/25/23 17:32 17:32 19:30 WBC 4.9 RBC 3.94 L Hgb 11.6 L Hct 35.8 L MCV 90.9 MCH 29.4 MCHC 32.4 RDW Std Deviation 51.8 H RDW Coeff of Mg 15.7 H Plt Count 139 L MPV 10.7 Immature Gran % (Auto) 0.400 Neut % (Auto) 60.9 Lymph % (Auto) 27.4 [place] % (Auto) 9.3 Eos % (Auto) 1.4 Baso % (Auto) 0.6 Absolute Neuts (auto) 3.0 Absolute Lymphs (auto) 1.35 Nucleated RBC % 0 Sodium 140 Potassium 4.7 Chloride 106 Carbon Dioxide 26.0 Anion Gap 8 BUN 28 H Creatinine 1.44 H Estim Creat Clear Calc 22.34 Est GFR (MDRD) Af Amer 45 L Est GFR (MDRD) Non-Af 37 L BUN/Creatinine Ratio 19.4 Glucose 129 H Calcium 9.1 Troponin I High Sens 35 B-Natriuretic Peptide 142.4 H Radiography Diagnostic Testing: Clinical Impression(s) from Imaging Studies Chest X-Ray 02/25/23 17:40 IMPRESSION: There is bilateral infiltrate / atelectasis. Electronically Signed: Ritchie Francis MD at 18:02 EDT Reading Location ID and State: [facility] / [place] , Service support , EKG Initial EKG: Comments: My independent interpretation the patient's EKG done for chest pain shows a sinus rhythm with a rate of 66. Right bundle branch block with secondary ST and T wave changes but no indication of acute infarct or ischemia. CT interval was normal. QRS duration and QTc are bit long. Discharge Plan Triage Chief Complaint: Chest Pain ED Provider: Toni Shahid Dx/Rx/DC Orders Clinical Impression: Chest pain, Left shoulder pain Instructions: ED Chest Pain, Uncertain Cause Prescriptions: No Action Qvar RediHaler 40 mcg/actuation HFA aerosol breath activated 2 inh INHALATION DAILY calcium carbonate [Calcium 600] 600 mg calcium (1,500 mg) tablet 600 mg PO DAILY nitroglycerin [Nitrostat] 0.4 mg tablet, sublingual 0.4 mg sublingual Q5-15M PRN (Reason: chest pain) Qty: 25 3RF Rx Instructions: do not exceed 3 doses per episode pantoprazole 40 mg tablet,delayed release (DR/EC) 40 mg PO DAILY albuterol sulfate 90 mcg/actuation HFA aerosol inhaler 2 puff inhalation Q6H PRN (Reason: Wheezing) meloxicam 15 mg tablet 15 mg PO DAILY multivitamin with minerals 1 EACH tablet 1 ea PO DAILY cholecalciferol (vitamin D3) 2,000 UNIT capsule 2,000 unit PO DAILY aspirin 81 mg tablet,chewable 81 mg PO DAILY Qty: 30 1RF metformin 1,000 mg tablet 1,000 mg PO BID Qty: 60 1RF metoprolol tartrate 50 MG tablet 50 mg PO BID Qty: 0 0RF Rx Instructions: Hold for heart less than 60 or systolic blood pressure less than 100 mmHg. ranolazine 1,000 mg tablet extended release 12 hr 1,000 mg PO BID Qty: 180 3RF amlodipine 10 mg tablet 10 mg PO DAILY Qty: 90 3RF atorvastatin 40 mg tablet 40 mg PO QHS Qty: 90 3RF furosemide 20 mg tablet 20 mg PO DAILY Qty: 3 0RF Primary Care Provider: Luz Marina Schmidt NP Referrals: Luz Marina Schmidt NP, [employer]ATOR [employer]CH[employer]IC[employer] [Primary Care Provider] - 1-2 Days if not improving Disposition Disposition: Home, Self Care
[2023-02-25 17:31] VITALS: O2SAT 95
[2023-02-25] MEDS: Aspirin 81 MG TAB.CHEW 324 MG PO (17:36)
[2023-02-25 17:38] LABS: Absolute Lymphocyte Count 1.35 X10^3/uL (0.83-4.51); Basophil# 0.03 X10^3/uL; Basophil% 0.6 % (0-1); Eosinophil# 0.07 X10^3/uL; Eosinophils% 1.4 % (0-5); Hematocrit 35.8 % (37-47); Hemoglobin 11.6 g/dL (12.0-15.0); Lymphocyte # 1.35 X10^3/ul (0.83-4.51); Lymphocyte % 27.4 % (19-41); Mean Corp Hgb Conc 32.4 g/dL (32-36); Mean Corpuscular Hgb 29.4 pg (27.0-32.0); Mean Corpuscular Volume 90.9 fL (81-99); Mean Platelet Vol. 10.7 fl (6.2-12.0); Monocyte# 0.46 X10^3/uL; Monocyte% 9.3 % (0-10); NRBC Flagged by Analyzer 0 % (0-5); Neutrophil # 2.99 X10^3/uL (2.7-7.7); Neutrophil % 60.9 % (47-70); Platelet Count 139 K/mm3 (150-450); RBC Distribution Width CV 15.7 % (11.6-14.6); RBC Distribution Width SD 51.8 fl (35.1-43.9); Red Blood Count 3.94 M/mm3 (4.2-5.4); White Blood Count 4.9 K/mm3 (4.4-11.0)
--- NOTE | 2023-02-25 17:40 | RAD_ITS ---
STUDY: XR Chest 1 View 02/25/2023 5:42 PM REASON FOR EXAM: Female, 83 years old. Dull chest PAIN chest pain COMPARISON: 09.28.22 TECHNIQUE: XR Chest 1 View FINDINGS: There is no demonstrated pleural abnormality. Bilateral infiltrates. Elevated bilateral humeral head with eburnation of the acromion suggest a chronic rotator cuff tear. Right humeral pancreas. Enlarged heart size. Normal mediastinum. Normal madeline. Prominent appearing increased interstitial lung markings. Normal visualized pulmonary arteries. There is atherosclerotic calcification of the aortic arch with tortuosity. There are diffuse degenerative changes of the visualized thoracic spine. There is degenerative osteoarthritis of the bilateral shoulders. There is no demonstrated abnormality of the visualized soft tissue structures of the upper abdomen. RAD/Chest 1 View (Portable) IMPRESSION: There is bilateral infiltrate / atelectasis. Electronically Signed: Ritchie Francis MD at 18:02 EDT ,
[2023-02-25 17:56] LABS: Anion Gap 8 (5-15); BUN 28 mg/dL (7-18); BUN/Creat Ratio 19.4 RATIO (10-20); Calcium,Total 9.1 mg/dL (8.5-10.1); Chloride 106 mmol/L (98-107); Creatinine, Serum 1.44 mg/dL (0.55-1.02); EST Glomerular Filtration Rate 37 mL/min (>60); Est Glom Filt Rate - Afr Amer 45 mL/min (>60); Estimated Creatinine Clearance 22.34 ml/min; Glucose 129 mg/dL (74-106); Potassium 4.7 mmol/L (3.5-5.1); Sodium Level 140 mmol/L (136-145); Troponin-I HS 35 pg/mL (3.0-54.0)
[2023-02-25 18:34] VITALS: BP 118/69; PULSE 73; RESP 71; O2SAT 92
[2023-02-25 19:48] LABS: BNP,B-Type NATRIURETIC PEPTIDE 142.4 pg/mL (0-100)
[2023-02-25 20:19] VITALS: BP 116/77; PULSE 67; PULSE 69; RESP 16; O2SAT 93
[2023-02-25 20:31] VITALS: O2SAT 96
== END 2023-02-25 20:32 | disposition home or self-care (01) ==
PROVIDERS: Emergency Provider Emergency Medicine; PCP Registered Nurse; Visit Provider Emergency Medicine
DX: R07.9 Chest pain, unspecified (principal); E11.22 Type 2 diabetes mellitus with diabetic chronic kidney disease; N18.30 Chronic kidney disease, stage 3 unspecified; I12.9 Hypertensive chronic kidney disease with stage 1 through stage 4 chronic kidney disease, or unspecified chronic kidney disease; M25.512 Pain in left shoulder; I25.10 Atherosclerotic heart disease of native coronary artery without angina pectoris; Z79.899 Other long term (current) drug therapy; Z79.51 Long term (current) use of inhaled steroids; Z79.82 Long term (current) use of aspirin; Z79.84 Long term (current) use of oral hypoglycemic drugs; M19.90 Unspecified osteoarthritis, unspecified site; K21.9 Gastro-esophageal reflux disease without esophagitis; Z90.710 Acquired absence of both cervix and uterus; Z90.49 Acquired absence of other specified parts of digestive tract
CPT/HCPCS: 71045; 80048; 83880; 84484; 85025; 93005; 99285; A4216

== ENCOUNTER → 2023-03-12 | Outpatient (CLI) | payer MEDICARE, SELFPAY ==
--- NOTE | 2023-03-12 17:53 | STRESSREP ---
Stress Test Report Pharmacologic myocardial perfusion stress test. 83-year-old lady with a history of chest pain Resting EKG demonstrates sinus rhythm with a rate of 65 bpm with a right bundle branch block pattern. Resting blood pressure is 132/68 mmHg. 0.4 mg of regadenoson was infused per usual protocol followed by rapid intravenous saline flush injection. Continuous EKG monitoring was performed. The maximum heart rate was 75 bpm which was 54% of max impacted heart rate the maximum workload was 1 metabolic equivalent. At rest there were no ST or T wave changes noted to suggest ischemia and at peak infusion nonspecific ST changes were noted which did not meet the criteria for ischemia. No clinical angina is noted. The final blood pressure was 122/62 mmHg. Myocardial perfusion protocol. 11.1 mCi of technetium 99m sestamibi was injected at rest. 0.4 mg of regadenoson was infused per usual protocol. At peak infusion 33.8 mCi of technetium 99m sestamibi was injected stress images were obtained stress and rest images were reconstructed and compared in the short axis vertical long and horizontal long axis. Gated images were also obtained. Perfusion SPECT analysis: Review of the stress images demonstrate normal uptake of tracer noted in all areas of the myocardium. The resting images similar demonstrated normal uptake of tracer noted in all areas of the myocardium. No areas of reversibility are noted to suggest ischemia and no previous infarct is noted. Gated SPECT analysis: The gated ejection fraction is 79%. Conclusion: Normal pharmacologic myocardial perfusion stress test. Preserved ejection fraction.
== END | disposition home or self-care (01) ==
LOC: CVS 07:04
PROVIDERS: PCP Registered Nurse; Referring Provider Internal Medicine Cardiovascular Disease; Visit Provider Internal Medicine Cardiovascular Disease
DX: R07.9 Chest pain, unspecified (principal); N18.30 Chronic kidney disease, stage 3 unspecified; I12.9 Hypertensive chronic kidney disease with stage 1 through stage 4 chronic kidney disease, or unspecified chronic kidney disease; I25.10 Atherosclerotic heart disease of native coronary artery without angina pectoris
CPT/HCPCS: 78452; 93017; A9500; A4216; J2785

== ENCOUNTER → 2023-08-24 | Outpatient (CLI) | payer MEDICARE, SELFPAY ==
[2023-08-24 12:38] VITALS: PULSE 66; PULSE 68; PULSE 70; PULSE 72; PULSE 75; PULSE 76; PULSE 77; O2SAT 88; O2SAT 90; O2SAT 91; O2SAT 92; O2SAT 94; O2SAT 95
--- NOTE | 2023-08-24 12:40 | CPS ---
Preliminary results faxed to W.
--- NOTE | 2023-08-25 07:18 | WT_ITS ---
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 Assistive device used: Cane Pre-test Oxygen Delivery Method Room Air Pulse Ox 95 Pulse Rate (60-100) 68 Dyspnea Haroldo Scale (0-10) 0 Exertion Haroldo Scale (6-20) 6 1st minute Oxygen Delivery Method Room Air Pulse Ox 92 Pulse Rate (60-100) 70 2nd minute Oxygen Delivery Method Room Air Pulse Ox 92 Pulse Rate (60-100) 72 3rd minute Oxygen Delivery Method Room Air Pulse Ox 91 Pulse Rate (60-100) 75 4th minute Oxygen Delivery Method Room Air Pulse Ox 91 Pulse Rate (60-100) 75 5th minute Oxygen Delivery Method Room Air Pulse Ox 90 Pulse Rate (60-100) 77 6th minute Oxygen Delivery Method Room Air Pulse Ox 88 Pulse Rate (60-100) 76 Dyspnea Haroldo Scale (0-10) 2 Exertion Haroldo Scale (6-20) 13 Post-test Oxygen Delivery Method Room Air Pulse Ox 94 Pulse Rate (60-100) 66 Full Laps Walked 9 Partial Lap, Number of Tiles Walked 7 Total Distance Walked (ft) 538 08/24/23 12:40 Cardiopulmonary Services by Mago Veliz Preliminary results faxed to W. Initialized on 08/24/23 12:40 - END OF NOTE Interpretation Interpretation: The patient was able to ambulate only 538 feet over the course of 6 minutes on room air with the assistance of a cane, but no breaks. The patient did experience significant desaturation from a baseline of 95% to as low as 88%, but no tachycardia was noted. These findings are consistent with a respiratory limitation exercise tolerance. Recommendations Recommendations: The patient may benefit from supplemental oxygen with extreme exertion, but did not desaturate to 88% until the 6-minute denise. Will need to follow closely moving forward.
== END | disposition home or self-care (01) ==
LOC: PSN 12:12
PROVIDERS: PCP Registered Nurse; Referring Provider Nurse Practitioner Acute Care; Visit Provider Nurse Practitioner Acute Care
DX: R06.00 Dyspnea, unspecified (principal)
CPT/HCPCS: 94618

== ENCOUNTER → 2024-02-04 | Outpatient (CLI) | payer MEDICARE, SELFPAY ==
--- NOTE | 2024-02-04 09:02 | ECHOD_ITS ---
Reason For Study: HTN Procedure This was a 2D Doppler, Color Flow transthoracic echocardiogram. Exam performed in department. Left Ventricle Normal LV size. Left ventricular systolic function is normal. The estimated ejection fraction is 60 %. Stage 1 diastolic dysfunction. No regional wall motion abnormalities noted. Right Ventricle Normal RV size. Normal systolic function. Atria Normal left atrium. Normal right atrium. Mitral Valve There is mild mitral annular calcification. Tricuspid Valve Normal tricuspid valve. Mild (1+) tricuspid valve insufficiency. Pulmonary artery systolic pressure is 38 mmHg. Aortic Valve Trisinus/trileaflet aortic valve. Mild focal aortic valve calcification. Pulmonic Valve Normal pulmonic valve. Great Vessels Normal aortic root. The pulmonary artery is normal size. Normal inferior vena cava. Pericardium/Pleural No pericardial effusion. MMode/2D Measurements & Calculations LVIDd: 4.5 cm IVSd: 1.2 cm Ao root diam: 3.3 cm LVIDs: 2.6 cm LVPWd: 1.2 cm LA dimension: 4.2 cm RVDd: 4.1 cm FS: 42.8 % LAV(MOD-bp): 83.4 ml LA A4 area: 24.4 cm2 RA A4 area: 20.6 cm2 LAV(MOD-bp) Indexed: 49.2 ml/m2 LAV(MOD-sp2): 84.7 ml LAV(MOD-sp4): 74.8 ml TAPSE: 2.6 cm Time Measurements MV dec time: 0.28 sec Doppler Measurements & Calculations MV E max baldev: 78.0 cm/sec Lat Peak E' Baldev: 7.6 cm/sec Med Peak E' Baldev: 6.2 cm/sec MV A max baldev: 93.2 cm/sec E/E' lat: 10.3 E/E' med: 12.6 MV E/A: 0.84 MV V2 max: 102.0 cm/sec MV P1/2t max baldev: 102.0 cm/sec Ao V2 max: 147.6 cm/sec MV max P.2 mmHg MV P1/2t: 83.8 msec Ao max P.7 mmHg MV V2 mean: 44.9 cm/sec MV mean P.1 mmHg MV dec slope: 356.8 cm/sec2 MV V2 VTI: 26.0 cm MVA(P1/2t): 2.6 cm2 LV V1 max: 86.2 cm/sec PA V2 max: 87.4 cm/sec TR max baldev: 295.3 cm/sec LV V1 max P.0 mmHg PA V2 mean: 51.0 cm/sec TR max P.9 mmHg ECHO/Echo Complete Interpretation Summary Normal LV size. Left ventricular systolic function is normal. The estimated ejection fraction is 60 %. There is mild mitral annular calcification. Stage 1 diastolic dysfunction. Pulmonary artery systolic pressure is 38 mmHg. Ordering Physician: Karl Elliott Referring Physician: Karl Elliott Performed By: Deuce Guerrero RCS
--- NOTE | 2024-02-04 09:19 | AAVD_ITS ---
Reason For Study: AAA Aorta Measurements Aorta Doppler Measurements Proximal aorta measures2.10 x 2.15cm. in cross- Peak systolic flow velocities within the proximal sectional axis. aorta measure 114 cm/sec. Proximal aorta measures2.03cm. in longitudinal Peak systolic flow velocities within the mid aorta axis. measure 34.3 cm/sec. Mid aorta measures4.02 x 4.03cm. in cross- Peak systolic flow velocities within the distal sectional axis. aorta measure 34.3 cm/sec. Mid aorta measures4.04cm. in longitudinal axis. Distal aorta measures2.21 x 2.32cm. in cross- sectional axis. Distal aorta measures2.27cm. in longitudinal axis. Left Iliac Artery Left iliac artery measures 1.37 x 1.35 cm. in the cross-sectional axis. Left iliac artery measures 1.30 cm. in the longitudinal axis. Peak systolic velocity in the left iliac artery measures 106.7 cm/sec. Right Iliac Artery Right iliac artery measures 1.09 x 1.08 cm. in the cross-sectional axis. Right iliac artery measures 1.08 cm. in the longitudinal axis. Peak systolic velocity in the right iliac artery measures 79.6 cm/sec. Procedure Aorta IVC Iliac vasculature or bypass grafts 20022. Exam performed in department. 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
== END | disposition home or self-care (01) ==
LOC: CVS 08:59
PROVIDERS: PCP Registered Nurse; Referring Provider Internal Medicine Cardiovascular Disease; Visit Provider Internal Medicine Cardiovascular Disease
DX: R06.00 Dyspnea, unspecified (principal); I10 Essential (primary) hypertension; I71.40 Abdominal aortic aneurysm, without rupture, unspecified; I25.10 Atherosclerotic heart disease of native coronary artery without angina pectoris
CPT/HCPCS: 93306; 93978

== ENCOUNTER 2024-08-22 12:57 | Emergency (ER) | payer MEDICARE, SELFPAY ==
[2024-08-22 12:58] VITALS: BP 115/63; PULSE 71; RESP 22; TEMP 36.9; O2SAT 92; BMI 30.5
--- NOTE | 2024-08-22 13:15 | EKG12_ITS ---
Test Reason : SOB/CP Blood Pressure : */* mmHG Vent. Rate : 64 BPM Atrial Rate : 64 BPM P-R Int : 180 ms QRS Dur : 128 ms QT Int : 444 ms P-R-T Axes : 66 63 -15 degrees QTcB Int : 458 ms Normal sinus rhythm Right bundle branch block Abnormal ECG Confirmed by SARAH BANDA, TIN ([id number]), business editor DAMARIS AVILA ([id number]) on 08/23/2024 1:51:12 PM Referred By: FAIZA Confirmed By: TIN SMITH MD
[2024-08-22 13:26] VITALS: O2SAT 96
[2024-08-22 13:37] LABS: Absolute Lymphocyte Count 0.87 X10^3/uL (0.83-4.51); Absolute Neutrophil Count 3.6 X10^3/uL (2.0-7.7); Basophil# 0.02 X10^3/uL; Basophil% 0.4 % (0-1); Eosinophil# 0.07 X10^3/uL; Eosinophils% 1.4 % (0-5); Hematocrit 32.5 % (37-47); Hemoglobin 10.6 g/dL (12.0-15.0); Lymphocyte # 0.87 X10^3/ul (0.83-4.51); Lymphocyte % 17.5 % (19-41); Mean Corp Hgb Conc 32.6 g/dL (32-36); Mean Corpuscular Hgb 30.4 pg (27.0-32.0); Mean Corpuscular Volume 93.1 fL (81-99); Mean Platelet Vol. 11.1 fl (6.2-12.0); Monocyte# 0.44 X10^3/uL; Monocyte% 8.8 % (0-10); NRBC Flagged by Analyzer 0 % (0-5); Neutrophil # 3.56 X10^3/uL (2.7-7.7); Neutrophil % 71.5 % (47-70); Platelet Count 162 K/mm3 (150-450); RBC Distribution Width CV 15.3 % (11.6-14.6); RBC Distribution Width SD 51.8 fl (35.1-43.9); Red Blood Count 3.49 M/mm3 (4.2-5.4)
--- NOTE | 2024-08-22 13:40 | RAD_ITS ---
STUDY: X-RAY CHEST REASON FOR EXAM: Female, 84 years old. One week history of chest pain cough and wheezing. TECHNIQUE: PA and lateral views of the chest. COMPARISON: Comparison is made with prior study dated February 25, 2023. FINDINGS: EKG electrodes are seen. Since prior study, there has been progression of the interstitial markings in both lungs with areas of confluence as compared to prior study. This is suggestive of chronic interstitial fibrosis. Mild degree of superimposed CHF cannot be excluded. There is no demonstrated pleural abnormality. There is mild cardiac enlargement. Normal mediastinum and madeline. Normal visualized pulmonary arteries. There is atherosclerotic tortuosity of the aortic arch and descending thoracic aorta. There are diffuse degenerative changes of the visualized thoracic spine. There is degenerative osteoarthritis of the bilateral shoulders. There is no demonstrated abnormality of the visualized soft tissue structures of the upper abdomen. RAD/Chest PA and Lateral IMPRESSION: Progressive increased interstitial markings with areas of confluence suggestive progressive chronic interstitial fibrosis. Mild degree of superimposed CHF cannot be excluded. Cardiomegaly. Electronically Signed: Vahid Gallegos MD at 13:55 EST ,
--- NOTE | 2024-08-22 13:43 | ED.VIS.CHEST ---
HPI <CELESTE Jenkins - Last Filed: 08/22/24 16:07> History of Present Illness Chief Complaint: Chest Pain Narrative Narrative: Patient presenting today with pain to the left side of her chest that she has had intermittently over the last week. She reports that at times the pain does radiate to her left shoulder and left elbow. Her pain has not gotten any better or worse, but she did want to come in to be evaluated for it. Nothing seems to trigger her symptoms. She does report associated occasional mild dyspnea with exertion but has this chronically. She does report that she has had a cough for the past 2 weeks. She denies fevers, chills, nausea, and vomiting. She had a echocardiogram in February of this year that showed an EF of 60%, she had a stress test in March 2023 that showed no ischemia. She has a PMH of HTN, CAD, CKD, HLD. PE Risk Factors: Negative for Recent Travel/Surgery, Recent Immobilization, Prior DVT or PE or Cancer PFSH <CELESTE Jenkins - Last Filed: 08/22/24 16:07> [facility] History Abdominal aortic aneurysm (01/03/22) Atherosclerotic heart disease of [place] coronary artery without angina pectoris Essential hypertension Diabetes mellitus, type 2 Rheumatoid arthritis Pancreatitis Shingles Pulmonary fibrosis Arthritis Asthma Acid reflux Carpal tunnel syndrome left hand surgery Chronic kidney disease, stage 3 Home Medications ?Medication ?Instructions ?Recorded ?Last Taken ?Type cholecalciferol (vitamin D3) 50 2,000 unit PO DAILY vitamin 01/27/20 11/26/21 History mcg (2,000 unit) capsule multivitamin with minerals 1 ea PO DAILY vitamin 01/27/20 11/26/21 History aspirin 81 mg chewable tablet 81 mg PO DAILY #30 tabs 05/21/21 11/26/21 Rx metformin 1,000 mg tablet 1,000 mg PO BID #60 tabs 05/21/21 11/26/21 Rx ranolazine 1,000 mg 1,000 mg PO BID #180 tabs 07/09/21 11/26/21 Rx tablet,extended release,12 hr metoprolol tartrate 50 mg tablet 50 mg PO BID heart #0 tabs 02/23/22 02/22/22 Rx pantoprazole 40 mg tablet,delayed 40 mg PO DAILY 06/24/22 Unknown History release amlodipine 10 mg tablet 10 mg PO DAILY #90 tabs 07/21/22 Unknown Rx atorvastatin 40 mg tablet 40 mg PO QHS #90 tabs 02/10/23 Unknown Rx calcium carbonate (Calcium 600) 600 mg PO BID PRN supplement 07/17/23 Unknown History nitroglycerin 0.4 mg sublingual 0.4 mg sublingual Q5-15M PRN chest 07/17/23 Unknown Rx tablet (Nitrostat) pain #25 tabs albuterol sulfate 90 mcg/actuation 2 puff inhalation Q6H PRN Wheezing 07/28/23 Unknown Rx aerosol inhaler #8.5 grams beclomethasone dipropionate 40 2 inh inhalation DAILY asthma 07/28/23 Unknown Rx mcg/actuation HFA breath activated #10.6 grams aerosol (Qvar RediHaler) cetirizine 10 mg tablet 10 mg PO DAILY PRN allergy 07/28/23 Unknown Rx symptoms #90 tabs meloxicam 15 mg tablet 15 mg PO DAILY 01/06/24 Unknown History doxycycline hyclate 100 mg tablet 100 mg PO BID 10 days #19 tabs 08/22/24 Unknown Rx prednisone 20 mg tablet 40 mg (2 x 20 mg) PO DAILY 5 days 08/22/24 Unknown Rx #10 tabs Allergy/AdvReac Type Severity Reaction Status Date / Time lisinopril AdvReac Unknown cough Verified 05/11/24 14:23 morphine AdvReac feels Verified 05/11/24 14:23 drunk Family History Mother Enlarged heart Asthma Father Lupus Aneurysm Sister Asthma Rheumatoid arthritis Osteoarthritis Surgical History H/O hand surgery History of left heart catheterization (05/20/21) Hx of removal of ovary History of arthroplasty of both shoulders H/O right knee surgery H/O left knee surgery History of bladder surgery Right hand surgery Hx of appendectomy Hx of cholecystectomy H/O: hysterectomy Social History household members: spouse Smoking Status: Never smoker alcohol intake: never substance use type: does not use ROS <CELESTE Jenkins - Last Filed: 08/22/24 16:07> ROS ED Constitutional Constitutional ED: Denies chills or fever(s) Cardiovascular Cardiovascular: Reports chest pain; Denies palpitations Respiratory/Chest Respiratory/Chest: Reports dyspnea on exertion Gastrointestinal Gastrointestinal: Denies abdominal pain, nausea or vomiting Musculoskeletal Musculoskeletal: Denies arthralgias or myalgias Integumentary Denies rash Neurologic Neurologic: Denies paresthesias or weakness EXAM <CELESTE Jenkins - Last Filed: 08/22/24 16:07> Physical Exam Const Vital Signs: 08/22/24 12:58 08/22/24 13:26 08/22/24 13:31 Temperature 98.4 F Temperature Source Oral Pulse Rate 71 Respiratory Rate 22 H Respiratory Effort Normal Non-Labored Blood Pressure 115/63 Blood Pressure Mean 80 Pulse Ox 92 96 Oxygen Delivery Method Room Air Room Air 08/22/24 13:57 08/22/24 14:00 08/22/24 14:55 Temperature 97.8 F Temperature Source Pulse Rate 87 Respiratory Rate 16 Respiratory Effort Blood Pressure 109/86 H 109/66 117/70 Blood Pressure Mean 93 80 85 Pulse Ox 93 94 Oxygen Delivery Method Positive well nourished, well developed and no apparent distress General Appearance ED: well developed HEENT Reports normocephalic and head/scalp atraumatic Mouth ED: Yes moist mucous membranes normal Eyes PERRL and EOMs intact bilaterally Neck full ROM and supple Chest Wall inspection of chest normal Resp normal respiratory effort and clear to auscultation bilaterally Cardio regular rate and regular rhythm GI soft to palpation, non-tender, non-distended and no masses Back/Spine normal ROM and normal to inspection Extremity normal to inspection and full ROM Neuro oriented x3, CN's II-XII intact bilaterally, moves all extremities, no focal motor deficits and no sensory deficits noted Sensorium / Orientation: awake and alert Psych mental status grossly normal and thought process normal Skin no rashes or lesions noted and no wounds <Dr. Rodrigo Asif MD - Last Filed: 08/22/24 14:44> Physical Exam Const Vital Signs: 08/22/24 12:58 08/22/24 13:26 08/22/24 13:31 Temperature 98.4 F Temperature Source Oral Pulse Rate 71 Respiratory Rate 22 H Respiratory Effort Normal Non-Labored Blood Pressure 115/63 Blood Pressure Mean 80 Pulse Ox 92 96 Oxygen Delivery Method Room Air Room Air 08/22/24 13:57 08/22/24 14:00 08/22/24 14:55 Temperature 97.8 F Temperature Source Pulse Rate 87 Respiratory Rate 16 Respiratory Effort Blood Pressure 109/86 H 109/66 117/70 Blood Pressure Mean 93 80 85 Pulse Ox 93 94 Oxygen Delivery Method [facility] <CELESTE Jenkins - Last Filed: 08/22/24 16:07> [facility] Narrative Medical decision making narrative: Patient presenting today with left-sided chest pain that radiates to her left arm that she has had occasionally over the past week. It is not exertional, nothing seems to trigger her symptoms. She has had a cough for a few weeks. She does have reproducible tenderness to her chest. She had a echo in February that showed an EF of 60%, she had a stress test in March 2023 that showed no ischemia. She does follow with Dr. Tate. Cardiac labs will be obtained. Her CBC reveals an H&H of 10.6 and 32.5, her BMP is unremarkable, troponin 18. Her EKG does not show any ischemia. Chest x-ray shows findings consistent with pulmonary fibrosis and cardiomegaly. Given she has had a cough for 2 weeks with underlying lung disease, she will be treated with antibiotics and steroids with first dose here. Her chest pain is more consistent with a chest wall strain from coughing. She was placed on doxycycline and prednisone. She will be discharged home in stable condition. I did recommend that she follow-up with her excel developer. Return instructions were discussed. Lab Data Attestation: I reviewed the patient's lab results. Lab results narrative: H&H of 10.6 and 32.5, troponin 18 Labs: Laboratory Results - last 24 hr 08/22/24 13:27 WBC 5.0 RBC 3.49 L Hgb 10.6 L Hct 32.5 L MCV 93.1 MCH 30.4 MCHC 32.6 RDW Std Deviation 51.8 H RDW Coeff of Mg 15.3 H Plt Count 162 MPV 11.1 Immature Gran % (Auto) 0.400 Neut % (Auto) 71.5 H Lymph % (Auto) 17.5 L [place] % (Auto) 8.8 Eos % (Auto) 1.4 Baso % (Auto) 0.4 Absolute Neuts (auto) 3.6 Absolute Lymphs (auto) 0.87 Nucleated RBC % 0 Sodium 141 Potassium 3.8 Chloride 108 H Carbon Dioxide 26.0 Anion Gap 8 BUN 16 Creatinine 1.01 Estim Creat Clear Calc 37.99 Est GFR (MDRD) Af Amer 67 Est GFR (MDRD) Non-Af 55 L BUN/Creatinine Ratio 15.8 Glucose 120 H Calcium 9.1 Troponin I High Sens 18 Radiography Diagnostic Testing: Clinical Impression(s) from Imaging Studies Chest X-Ray 08/22/24 13:40 IMPRESSION: Progressive increased interstitial markings with areas of confluence suggestive progressive chronic interstitial fibrosis. Mild degree of superimposed CHF cannot be excluded. Cardiomegaly. Electronically Signed: Vahid Gallegos MD at 13:55 EST , EKG Initial EKG: Comments: 64 bpm, normal sinus rhythm, right bundle branch block, no ST elevation <Dr. Rodrigo Asif MD - Last Filed: 08/22/24 14:44> [facility] Lab Data Labs: Laboratory Results - last 24 hr 08/22/24 13:27 WBC 5.0 RBC 3.49 L Hgb 10.6 L Hct 32.5 L MCV 93.1 MCH 30.4 MCHC 32.6 RDW Std Deviation 51.8 H RDW Coeff of Mg 15.3 H Plt Count 162 MPV 11.1 Immature Gran % (Auto) 0.400 Neut % (Auto) 71.5 H Lymph % (Auto) 17.5 L [place] % (Auto) 8.8 Eos % (Auto) 1.4 Baso % (Auto) 0.4 Absolute Neuts (auto) 3.6 Absolute Lymphs (auto) 0.87 Nucleated RBC % 0 Sodium 141 Potassium 3.8 Chloride 108 H Carbon Dioxide 26.0 Anion Gap 8 BUN 16 Creatinine 1.01 Estim Creat Clear Calc 37.99 Est GFR (MDRD) Af Amer 67 Est GFR (MDRD) Non-Af 55 L BUN/Creatinine Ratio 15.8 Glucose 120 H Calcium 9.1 Troponin I High Sens 18 Radiography Diagnostic Testing: Clinical Impression(s) from Imaging Studies Chest X-Ray 08/22/24 13:40 IMPRESSION: Progressive increased interstitial markings with areas of confluence suggestive progressive chronic interstitial fibrosis. Mild degree of superimposed CHF cannot be excluded. Cardiomegaly. Electronically Signed: Vahid Gallegos MD at 13:55 EST , Treatment and Re-Evaluation Comments:: I have personally performed a face to face assessment of the patient and have reviewed the LACEY Note. I performed a substantive portion of the visit including all aspects of the following. My stark findings include: History is significant cough with some occasional foamy nonbloody sputum production for the past 2 or 3 weeks, history of pulmonary fibrosis but the patient did not know what her lung problem lies. She has albuterol she has been using it occasionally, it helps minimally. She is chronically dyspneic with exertion but it has been a little worse in the last couple weeks. No fevers or chills. Chest discomfort left side worse with movement has been present for about a week constantly, with some numbness and tingling in that area and the left shoulder for the past 3 days constantly. Cough is no different in the last 3 days. Exam is mild expiratory wheezes at the end. Mild high-pitched inspiratory rhonchi at both bases. Equal breath sounds bilaterally no respiratory distress. No peripheral edema or JVD. Medical Decison Making prior echo looks good, the two-view chest x-ray appears to show chronic bilateral interstitial scarring consistent with pulmonary fibrosis on my interpretation, radiology in agreement indicating that it is mildly increased and may be CHF on top, I do not think this is the case based on the prior information clinically and affect she does not have prerenal azotemia. I think that she has a muscle strain or chest wall given that her EKG and troponin are negative/normal, and supportive care advised. She agrees it feels like that. We are going to also treat her with prednisone and antibiotics for possible lower respiratory tract infection on top of her pulmonary fibrosis and advised to follow-up with her excel developer. Other additions or changes: [None] Discharge Plan Triage Chief Complaint: Chest Pain ED Midlevel Provider: Christiane Rizzo ED Provider: Rodrigo Asif Dx/Rx/DC Orders Clinical Impression: Chest wall muscle strain, Bronchitis, Pulmonary fibrosis Instructions: Acute Bronchitis, ED Chest Wall Strain Prescriptions: New prednisone 20 mg tablet 40 mg PO DAILY 5 Days Qty: 10 0RF doxycycline hyclate 100 mg tablet 100 mg PO BID 10 Days Qty: 19 0RF No Action calcium carbonate [Calcium 600] 600 mg calcium (1,500 mg) tablet 600 mg PO BID PRN (Reason: supplement) pantoprazole 40 mg tablet,delayed release (DR/EC) 40 mg PO DAILY albuterol sulfate 90 mcg/actuation HFA aerosol inhaler 2 puff inhalation Q6H PRN (Reason: Wheezing) Qty: 8.5 6RF Qvar RediHaler 40 mcg/actuation HFA aerosol breath activated 2 inh INHALATION DAILY Qty: 10.6 11RF cetirizine 10 mg tablet 10 mg PO DAILY PRN (Reason: allergy symptoms) Qty: 90 3RF nitroglycerin [Nitrostat] 0.4 mg tablet, sublingual 0.4 mg sublingual Q5-15M PRN (Reason: chest pain) Qty: 25 3RF Rx Instructions: do not exceed 3 doses per episode meloxicam 15 mg tablet 15 mg PO DAILY multivitamin with minerals 1 EACH tablet 1 ea PO DAILY cholecalciferol (vitamin D3) 2,000 UNIT capsule 2,000 unit PO DAILY aspirin 81 mg tablet,chewable 81 mg PO DAILY Qty: 30 1RF metformin 1,000 mg tablet 1,000 mg PO BID Qty: 60 1RF metoprolol tartrate 50 MG tablet 50 mg PO BID Qty: 0 0RF Rx Instructions: Hold for heart less than 60 or systolic blood pressure less than 100 mmHg. ranolazine 1,000 mg tablet extended release 12 hr 1,000 mg PO BID Qty: 180 3RF amlodipine 10 mg tablet 10 mg PO DAILY Qty: 90 3RF atorvastatin 40 mg tablet 40 mg PO QHS Qty: 90 3RF Primary Care Provider: Luz Marina Schmidt NP Referrals: Luz Marina Schmidt NP, [employer] [Primary Care Provider] - Activity Restrictions/Additional Instructions: Follow-up with your excel developer and PCP, return for any worsening of your symptoms. Print Language: Serbian Disposition Disposition: Home, Self Care Discharge Date/Time: 08/22/24 14:58
[2024-08-22 13:54] LABS: Anion Gap 8 (5-15); BUN 16 mg/dL (7-18); BUN/Creat Ratio 15.8 RATIO (10-20); Calcium,Total 9.1 mg/dL (8.5-10.1); Chloride 108 mmol/L (98-107); Creatinine, Serum 1.01 mg/dL (0.55-1.02); EST Glomerular Filtration Rate 55 mL/min (>60); Est Glom Filt Rate - Afr Amer 67 mL/min (>60); Estimated Creatinine Clearance 37.99 ml/min; Glucose 120 mg/dL (74-106); Potassium 3.8 mmol/L (3.5-5.1); Sodium Level 141 mmol/L (136-145); Troponin-I HS 18 pg/mL (3.0-54.0)
[2024-08-22 13:57] VITALS: BP 109/86; O2SAT 93
[2024-08-22 14:00] VITALS: BP 109/66
[2024-08-22] MEDS: predniSONE 20 MG Tablet 40 MG PO (14:51)
[2024-08-22] MEDS: Doxycycline 100 MG CAPSULE PO (14:52)
[2024-08-22 14:55] VITALS: BP 117/70; PULSE 87; RESP 16; TEMP 36.6; O2SAT 94
== END 2024-08-22 14:58 | disposition home or self-care (01) ==
PROVIDERS: Physician Assistant; Emergency Provider Emergency Medicine; PCP Registered Nurse; Visit Provider Emergency Medicine
DX: J21.9 Acute bronchiolitis, unspecified (principal); M06.9 Rheumatoid arthritis, unspecified; J84.10 Pulmonary fibrosis, unspecified; E11.22 Type 2 diabetes mellitus with diabetic chronic kidney disease; N18.30 Chronic kidney disease, stage 3 unspecified; S29.011A Strain of muscle and tendon of front wall of thorax, initial encounter; X58.XXXA Exposure to other specified factors, initial encounter; I12.9 Hypertensive chronic kidney disease with stage 1 through stage 4 chronic kidney disease, or unspecified chronic kidney disease; I45.10 Unspecified right bundle-branch block; I25.10 Atherosclerotic heart disease of native coronary artery without angina pectoris; K21.9 Gastro-esophageal reflux disease without esophagitis; I71.40 Abdominal aortic aneurysm, without rupture, unspecified; E78.5 Hyperlipidemia, unspecified; M19.90 Unspecified osteoarthritis, unspecified site; J45.909 Unspecified asthma, uncomplicated; Z79.84 Long term (current) use of oral hypoglycemic drugs; Z87.19 Personal history of other diseases of the digestive system; Z90.49 Acquired absence of other specified parts of digestive tract; Z79.82 Long term (current) use of aspirin; Z79.899 Other long term (current) drug therapy
CPT/HCPCS: 71046; 80048; 84484; 85025; 93005; 99285; A4216

== ENCOUNTER → 2024-09-13 | Outpatient (CLI) | payer MEDICARE, SELFPAY ==
[2024-09-13 13:45] VITALS: PULSE 67; PULSE 72; PULSE 75; PULSE 77; PULSE 78; PULSE 80; O2SAT 91; O2SAT 92; O2SAT 93; O2SAT 95
--- NOTE | 2024-09-19 12:23 | PCM.PSN.6M ---
PSN 6 Minute Walk Test 6 Minute Walk Test 6 Minute Walk Test: 6 Minute Walk Test PSN:6-Minute Walk Test Start: 09/13/24 14:12 Freq: Status: Active Protocol: [id number].6MINW Document 09/13/24 13:45 AE (Rec: 09/13/24 14:15 [facility] [id number]) 6 Minute Walk Test Date Performed 09/13/24 Time Performed 13:55 Height 5 ft 1 in Weight: 154 lb Weight in Pounds 154.[address]: Eri Assistive device used: Cane Pre-test Oxygen Delivery Method Room Air Pulse Ox (%) 93 Pulse Rate (60-100 beats/min) 67 Dyspnea Haroldo Scale (0-10) 0 Exertion Haroldo Scale (6-20) 6 1st minute Oxygen Delivery Method Room Air Pulse Ox (%) 95 Pulse Rate (60-100 beats/min) 72 2nd minute Oxygen Delivery Method Room Air Pulse Ox (%) 92 Pulse Rate (60-100 beats/min) 75 3rd minute Oxygen Delivery Method Room Air Pulse Ox (%) 92 Pulse Rate (60-100 beats/min) 77 4th minute Oxygen Delivery Method Room Air Pulse Ox (%) 92 Pulse Rate (60-100 beats/min) 78 5th minute Oxygen Delivery Method Room Air Pulse Ox (%) 92 Pulse Rate (60-100 beats/min) 80 6th minute Oxygen Delivery Method Room Air Pulse Ox (%) 91 Pulse Rate (60-100 beats/min) 80 Dyspnea Haroldo Scale (0-10) 0.5 Exertion Haroldo Scale (6-20) 11 Post-test Oxygen Delivery Method Room Air Pulse Ox (%) 91 Pulse Rate (60-100 beats/min) 75 Full Laps Walked 7 Partial Lap, Number of Tiles Walked 21 Total Distance Walked (ft) 434 Interpretation Interpretation: The patient ambulated 434 feet over the course of 6 minutes beginning on room air with the use of a cane. Pretesting oxygen saturation was noted to be 93% on room air. With ambulation, the juan c oxygen saturation was 91%. Although there was evidence of impaired walk distance, there was no significant exertional oxygen desaturation. Recommendations Recommendations: There is no indication for the use of supplemental oxygen at this time.
== END | disposition home or self-care (01) ==
LOC: PSN 13:51
PROVIDERS: PCP Registered Nurse; Referring Provider Nurse Practitioner Acute Care; Visit Provider Nurse Practitioner Acute Care
DX: R09.02 Hypoxemia (principal)
CPT/HCPCS: 94618

== ENCOUNTER 2024-10-11 15:25 | Inpatient (IN) | payer MEDICARE, SELFPAY ==
[2024-10-11] VITALS (10 sets, daily range): BP systolic 116–129; BP diastolic 59–67; PULSE 77–94; RESP 16–28; TEMP 36.6–37.1; O2SAT 86–99; BMI 28.6; BMI 27.9
[2024-10-11 16:19] LABS: Absolute Lymphocyte Count 0.93 X10^3/uL (0.83-4.51); Basophil# 0.02 X10^3/uL; Basophil% 0.4 % (0-1); Eosinophil# 0.06 X10^3/uL; Eosinophils% 1.3 % (0-5); Hematocrit 33.4 % (37-47); Lymphocyte # 0.93 X10^3/ul (0.83-4.51); Lymphocyte % 20.2 % (19-41); Mean Corp Hgb Conc 32.9 g/dL (32-36); Mean Platelet Vol. 11.2 fl (6.2-12.0); Monocyte# 0.56 X10^3/uL; Monocyte% 12.2 % (0-10); NRBC Flagged by Analyzer 0 % (0-5); Neutrophil # 3.01 X10^3/uL (2.7-7.7); Neutrophil % 65.5 % (47-70); Platelet Count 174 K/mm3 (150-450); RBC Distribution Width CV 18.3 % (11.6-14.6); RBC Distribution Width SD 59.6 fl (35.1-43.9); Red Blood Count 3.67 M/mm3 (4.2-5.4); White Blood Count 4.6 K/mm3 (4.4-11.0)
[2024-10-11 16:39] LABS: Anion Gap 6 (5-15); BUN 11 mg/dL (7-18); BUN/Creat Ratio 9.5 RATIO (10-20); Calcium,Total 8.8 mg/dL (8.5-10.1); Chloride 109 mmol/L (98-107); Creatinine, Serum 1.16 mg/dL (0.55-1.02); EST Glomerular Filtration Rate 47 mL/min (>60); Est Glom Filt Rate - Afr Amer 57 mL/min (>60); Estimated Creatinine Clearance 32.03 ml/min; Glucose 106 mg/dL (74-106); Potassium 3.8 mmol/L (3.5-5.1); Sodium Level 140 mmol/L (136-145)
--- NOTE | 2024-10-11 17:13 | RAD_ITS ---
STUDY: X-RAY CHEST REASON FOR EXAM: Female, 84 years old. Cough, wheezing, hypoxia TECHNIQUE: PA and lateral views of the chest. COMPARISON: August 22, 2024 FINDINGS: There are monitoring devices. There are stable moderately advanced interstitial and groundglass opacities of the lungs. There is no demonstrated pleural abnormality. There is moderate cardiac enlargement. Normal mediastinum and madeline. Normal visualized pulmonary arteries. There is atherosclerotic calcification of the aortic arch with tortuosity. There is demineralization of the osseous structures. There is degenerative osteoarthritis of the bilateral shoulders. There is postoperative change of the right shoulder. There is no demonstrated abnormality of the visualized soft tissue structures of the upper abdomen. RAD/Chest PA and Lateral IMPRESSION: Stable interstitial and groundglass fibrosis or infiltrates. Electronically Signed: Rodrigo Cole MD at 19:11 EST ,
--- NOTE | 2024-10-11 17:13 | EKG12_ITS ---
Test Reason : COUGH Blood Pressure : */* mmHG Vent. Rate : 77 BPM Atrial Rate : 77 BPM P-R Int : 156 ms QRS Dur : 120 ms QT Int : 424 ms P-R-T Axes : 102 41 -27 degrees QTcB Int : 479 ms Poor data quality, interpretation may be adversely affected Normal sinus rhythm Right bundle branch block NS T wave abnormality, consider inferolateral ischemia Abnormal ECG Confirmed by Karl Elliott ([id number]), market editor MARTHA ROJAS ([id number]) on 10/12/2024 9:25:54 AM Referred By: Confirmed By: Karl Elliott
--- NOTE | 2024-10-11 17:15 | ED.VIS.DYS ---
HPI History of Present Illness Chief Complaint: Cough Detail of Chief Complaint: Cough x 2 months, low pulse ox, wheezing Informant: patient and family Onset/Context/Timing Onset: Month(s) (Onset 2 months ago worse past couple of weeks) Context: gradual Timing: Continuous and Waxes and wanes Quality: Positive for Dyspnea on exertion and Wheezing; Negative for Orthopnea or PND Current Severity: Mild Maximum Severity: Severe Worsened by: Exertion Relieved by: Nothing Associated Symptoms cough and white sputum; Negative for rhinorrhea, post nasal drip, ear pain, fever, sore throat, subjective, chills, clear sputum, yellow sputum or green sputum Chest Pain: Positive for None Narrative Narrative: Patient is a 84-year-old woman with history of asthma, atherosclerotic heart disease, abdominal aortic aneurysm, essential hypertension, chronic kidney disease (stage III) who presents because of pulse ox of 86% at home. She is not on home oxygen. She does not have a history of smoking. She is seen by nurse practitioner at the pulmonary office. She was seen by Dr. Pete Davis prior to his departure. She denies fever, chills night sweats. She denies ear pain or drainage. She does report mild congestion. She states she is coughing more than normal and coughing up more sputum than normal. There is no change in the color of the sputum. She denies abdominal pain, nausea or vomiting. She had 1 loose stool yesterday. She denies any ill contacts. She denies myalgias or arthralgias. She has been on 2 steroid burst per office records. PE Risk Factors: Negative for Cancer, OCP + Smoking + > 35, Prior DVT or PE, Recent immobilization or Recent surgery Prior similar symptoms: Yes Recent Illness/Hospitalization: No PFSH PFSH Medical History Abdominal aortic aneurysm (01/03/22) Atherosclerotic heart disease of [place] coronary artery without angina pectoris Essential hypertension Diabetes mellitus, type 2 Rheumatoid arthritis Pancreatitis Shingles Pulmonary fibrosis Arthritis Asthma Acid reflux Carpal tunnel syndrome left hand surgery Chronic kidney disease, stage 3 Home Medications ?Medication ?Instructions ?Recorded ?Last Taken ?Type cholecalciferol (vitamin D3) 50 2,000 unit PO DAILY vitamin 01/27/20 11/26/21 History mcg (2,000 unit) capsule multivitamin with minerals 1 ea PO DAILY vitamin 01/27/20 11/26/21 History aspirin 81 mg chewable tablet 81 mg PO DAILY #30 tabs 05/21/21 11/26/21 Rx metformin 1,000 mg tablet 1,000 mg PO BID #60 tabs 05/21/21 11/26/21 Rx ranolazine 1,000 mg 1,000 mg PO BID #180 tabs 07/09/21 11/26/21 Rx tablet,extended release,12 hr metoprolol tartrate 50 mg tablet 50 mg PO BID heart #0 tabs 11/27/21 11/26/21 Rx pantoprazole 40 mg tablet,delayed 40 mg PO DAILY 06/24/22 Unknown History release amlodipine 10 mg tablet 10 mg PO DAILY #90 tabs 07/21/22 Unknown Rx atorvastatin 40 mg tablet 40 mg PO QHS #90 tabs 02/10/23 Unknown Rx calcium carbonate (Calcium 600) 600 mg PO BID PRN supplement 07/17/23 Unknown History nitroglycerin 0.4 mg sublingual 0.4 mg sublingual Q5-15M PRN chest 07/17/23 Unknown Rx tablet (Nitrostat) pain #25 tabs albuterol sulfate 90 mcg/actuation 2 puff inhalation Q6H PRN Wheezing 07/28/23 Unknown Rx aerosol inhaler #8.5 grams cetirizine 10 mg tablet 10 mg PO DAILY PRN allergy 07/28/23 Unknown Rx symptoms #90 tabs doxycycline hyclate 100 mg tablet 100 mg PO BID 10 days #19 tabs 08/22/24 Unknown Rx prednisone 10 mg tablet 10 mg PO QDAY #30 tabs 08/30/24 Unknown Rx beclomethasone dipropionate 40 1 inh inhalation BID asthma #10.6 09/19/24 Unknown Rx mcg/actuation HFA breath activated grams aerosol (Qvar RediHaler) montelukast 10 mg tablet 10 mg PO QPM #90 tabs 09/19/24 Unknown Rx benzonatate 200 mg capsule 200 mg PO TID PRN cough #90 caps 09/30/24 Unknown Rx Allergy/AdvReac Type Severity Reaction Status Date / Time lisinopril AdvReac Unknown cough Verified 10/11/24 15:28 morphine AdvReac feels Verified 10/11/24 15:28 drunk Family History Mother Enlarged heart Asthma Father Lupus Aneurysm Sister Asthma Rheumatoid arthritis Osteoarthritis Surgical History H/O hand surgery History of left heart catheterization (05/20/21) Hx of removal of ovary History of arthroplasty of both shoulders H/O right knee surgery H/O left knee surgery History of bladder surgery Right hand surgery Hx of appendectomy Hx of cholecystectomy H/O: hysterectomy Social History household members: spouse Smoking Status: Never smoker alcohol intake: never substance use type: does not use ROS ROS ED Constitutional Constitutional ED: Denies chills, fever(s) or sweats Eyes Eyes: Denies blurry vision or change in vision ENT ENT ED: Denies ear pain, rhinorrhea or sore throat Cardiovascular Cardiovascular: Denies chest pain, orthopnea, palpitations or paroxysmal nocturnal dyspnea Respiratory/Chest Respiratory/Chest: Reports cough, dyspnea, dyspnea on exertion and sputum; Denies orthopnea or paroxysmal nocturnal dyspnea Gastrointestinal Gastrointestinal: Reports diarrhea; Denies abdominal pain, nausea or vomiting Genitourinary Genitourinary ED: Denies dysuria, hematuria or urinary frequency Musculoskeletal Musculoskeletal: Denies arthralgias or myalgias Integumentary Denies rash Neurologic Neurologic: Denies headache(s) or paresthesias Hematologic/Lymphatic Hematologic/Lymphatic: Denies easy bleeding or easy bruising EXAM Physical Exam Const Vital Signs: 10/11/24 15:28 10/11/24 15:30 10/11/24 17:12 Temperature 98.8 F Temperature Source Temporal Pulse Rate 81 Respiratory Rate 20 H Respiratory Effort Respiratory Depth Respiratory Pattern Blood Pressure 129/67 H Blood Pressure Mean 87 Pulse Ox 86 97 98 Oxygen Delivery Method Room Air Nasal Cannula Nasal Cannula Oxygen Flow Rate (L/min) 2 2 10/11/24 17:12 10/11/24 17:12 10/11/24 17:27 Temperature Temperature Source Pulse Rate 79 Respiratory Rate 28 H Respiratory Effort Normal Short of Breath Respiratory Depth Normal Respiratory Pattern Normal Blood Pressure Blood Pressure Mean Pulse Ox 98 97 Oxygen Delivery Method Room Air Oxygen Flow Rate (L/min) 10/11/24 17:28 10/11/24 17:30 Temperature Temperature Source Pulse Rate 77 Respiratory Rate 26 H Respiratory Effort Respiratory Depth Respiratory Pattern Tachypnea Blood Pressure Blood Pressure Mean Pulse Ox 99 Oxygen Delivery Method Oxygen Flow Rate (L/min) 2 Patient is breathing more rapidly than 20 times a minute. She has conversational dyspnea. She is not hypoxic on 2 L. She was hypoxic on room air at 86%. Positive well nourished and well developed General Appearance ED: well developed; Negative for NAD or pallor HEENT Reports moist mucous membranes HEENT Narrative: Ears are normal. Nares are patent. Posterior pharynx is normal. Eyes PERRL and EOMs intact bilaterally General Eye ED: Negative for pale conjunctiva or scleral icterus Neck no lymphadenopathy, supple, no meningeal signs and no JVD Resp No normal respiratory effort and No clear to auscultation bilaterally Auscultation: rales bilateral lower and wheezes expiratory wheezes, scattered wheezes and throughout Cardio regular rate, regular rhythm, S1 normal heart sound, S2 normal heart sound and no murmurs GI non-tender, non-distended and no masses Palpation: soft Extremity normal to inspection General Extremety ED: Yes edema; Negative for tenderness General Extremity: edema Neuro oriented x3 and CN's II-XII intact bilaterally O'Brien Coma Scale: document GCS findings Spontaneous Obeys Commands Oriented 15 Sensorium / Orientation: alert Psych mental status grossly normal Skin no wounds and skin turgor normal General Skin Exam: Negative for jaundice or pallor MDM MDM MDM Narrative Medical decision making narrative: Patient with rales bilaterally and wheezing as well as hypoxia. Will obtain chest x-ray to evaluate for pneumonia versus exacerbation of asthma due to viral versus bacterial infection. Appropriate blood work was obtained to assess for endorgan dysfunction. Office records from the pulmonary group were reviewed. History & Record Review Additional record(s) reviewed:: Prior outpatient record Lab Data Attestation: I reviewed the patient's lab results. Lab results narrative: White count is lower end of normal at 4.6 with no shift. Electrolyte panel is remarkable for slight elevation in creatinine of 1.16 with an estimated GFR 47. Labs: Laboratory Results - last 24 hr 10/11/24 10/11/24 16:09 17:20 WBC 4.6 RBC 3.67 L Hgb 11.0 L Hct 33.4 L MCV 91.0 MCH 30.0 MCHC 32.9 RDW Std Deviation 59.6 H RDW Coeff of Mg 18.3 H Plt Count 174 MPV 11.2 Immature Gran % (Auto) 0.400 Neut % (Auto) 65.5 Lymph % (Auto) 20.2 [place] % (Auto) 12.2 H Eos % (Auto) 1.3 Baso % (Auto) 0.4 Absolute Neuts (auto) 3.0 Absolute Lymphs (auto) 0.93 Nucleated RBC % 0 Sodium 140 Potassium 3.8 Chloride 109 H Carbon Dioxide 26.0 Anion Gap 6 BUN 11 Creatinine 1.16 H Estim Creat Clear Calc 32.03 Est GFR (MDRD) Af Amer 57 L Est GFR (MDRD) Non-Af 47 L BUN/Creatinine Ratio 9.5 L Glucose 106 Lactic Acid 3.2 H* Calcium 8.8 Radiography Chest X-Ray - ED: 2 View, Read by ED Physician, Normal, Heart, Mediastinum, Bony Structures, Right Infiltrate, Left Infiltrate and - (Chest x-ray that was obtained on February 25, 2023 revealed bilateral pneumonia as well. There was a more recent film for comparison August 22, 2024. This is unchanged. Clinically patient has pneumonia. Will treat with Rocephin and azithromycin.) Management Discussion w/another healthcare provider: Hospitalist (Case was discussed with Dr. Zoey Oliver the hospitalist. Full admit MedSurg clinical pneumonia, hypoxia, lactic acidosis) Treatment and Re-Evaluation :: Patient is elevated lactate of 3.2. This may be due to hypoxia versus diabetes on metformin versus combination. Discharge Plan Triage Chief Complaint: Cough Other Complaint: Shortness of Breath ED Provider: Prince Hare Dx/Rx/DC Orders Clinical Impression: Bilateral pneumonia, Chronic kidney disease, stage 3, Essential hypertension, Acute hypoxic respiratory failure, Bronchospasm, acute Prescriptions: No Action calcium carbonate [Calcium 600] 600 mg calcium (1,500 mg) tablet 600 mg PO BID PRN (Reason: supplement) pantoprazole 40 mg tablet,delayed release (DR/EC) 40 mg PO DAILY albuterol sulfate 90 mcg/actuation HFA aerosol inhaler 2 puff inhalation Q6H PRN (Reason: Wheezing) Qty: 8.5 6RF cetirizine 10 mg tablet 10 mg PO DAILY PRN (Reason: allergy symptoms) Qty: 90 3RF nitroglycerin [Nitrostat] 0.4 mg tablet, sublingual 0.4 mg sublingual Q5-15M PRN (Reason: chest pain) Qty: 25 3RF Rx Instructions: do not exceed 3 doses per episode prednisone 10 mg tablet 10 mg PO QDAY Qty: 30 0RF Rx Instructions: take 4 tabs for three days, then 3 tabs for three days, then 2 tabs for three days, then 1 tab for 3 days multivitamin with minerals 1 EACH tablet 1 ea PO DAILY cholecalciferol (vitamin D3) 2,000 UNIT capsule 2,000 unit PO DAILY aspirin 81 mg tablet,chewable 81 mg PO DAILY Qty: 30 1RF metformin 1,000 mg tablet 1,000 mg PO BID Qty: 60 1RF metoprolol tartrate 50 MG tablet 50 mg PO BID Qty: 0 0RF Rx Instructions: Hold for heart less than 60 or systolic blood pressure less than 100 mmHg. doxycycline hyclate 100 mg tablet 100 mg PO BID 10 Days Qty: 19 0RF ranolazine 1,000 mg tablet extended release 12 hr 1,000 mg PO BID Qty: 180 3RF amlodipine 10 mg tablet 10 mg PO DAILY Qty: 90 3RF atorvastatin 40 mg tablet 40 mg PO QHS Qty: 90 3RF Qvar RediHaler 40 mcg/actuation HFA aerosol breath activated 1 inh INHALATION BID Qty: 10.6 11RF montelukast 10 mg tablet 10 mg PO QPM Qty: 90 3RF benzonatate 200 mg capsule 200 mg PO TID PRN (Reason: cough) Qty: 90 0RF Primary Care Provider: Luz Marina Schmidt NP Referrals: Luz Marina Schmidt TRIAL CONSULTANT, TRIAL CONSULTANT-C [Primary Care Provider] - Print Language: Mauritian Disposition Disposition: Acute Care Hospital [facility]
[2024-10-11] MEDS: predniSONE 20 MG Tablet 60 MG PO (17:19)
[2024-10-11] MEDS: Albuterol 2.5 MG/3 ML VIAL.NEB. INHALATION ×3 (17:20)
[2024-10-11] MEDS: Ipratropium/Albuterol Sulfate 3 ML AMPUL.NEB INHALATION (17:20)
[2024-10-11 18:10] LABS: Lactic Acid 3.2 mmol/L (0.4-1.9)
--- NOTE | 2024-10-11 18:44 | PCM.HP.STD ---
HPI - General General Date of Admission: 10/11/24 Date of Service: 10/11/24 Chief Complaint: Cough, dyspnea, hypoxia. HPI Narrative The patient is an 84 y/o F w/ PMHx: CAD, AAA, HTN, HLD, Diabetes mellitus type II, Rheumatoid arthritis, CKD stage III per GFR trending/chart, GERD, Asthma/Pulmonary fibrosis, AZUCENA on CPAP q HS, Chronic normocytic anemia who presents to the [facility] ED on 10/11/2024 with history of persistent ongoing cough over the last 2 months with intermittent wheezing and lower than normal pulse oximeter however she notes it is more severe over the last couple weeks waxing and waning, worse with exertion with cough productive of occasionally white sputum specifically reporting that her pulse oximeter at home was noted be 86% not on any chronic oxygen therapy with no recent fevers or chills but mild congestion and given this has been ongoing with no improvement despite 2 steroid burst outpatient prompted eventual ED evaluation to be cautious. Workup in the ED included T98.8 Temporally, heart rate 81, BP 129/67, respiratory rate 20, initially 86% on room air with improvement to 99% on 2 L nasal cannula, CBC with WBC 4.6, hemoglobin, MCV 91, platelet 174 without marked shift, BMP with chloride 109, BUN/creatinine 11/1.16, GFR 47, lactic acid 3.2, blood culture x 2 pending per ED, respiratory rapid SARS COVID/influenza/RSV PCR pending upon request evaluation of patient, chest x-ray similar to prior with notable BL LE infiltrates but similar to prior but concern for clinical PNA. In the ED patient ministered IV Rocephin, azithromycin, DuoNeb therapy and prednisone 60 mg p.o. x 1. [facility] Medical History Abdominal aortic aneurysm (01/03/22) Atherosclerotic heart disease of [place] coronary artery without angina pectoris Essential hypertension Diabetes mellitus, type 2 Rheumatoid arthritis Pancreatitis Shingles Pulmonary fibrosis Arthritis Asthma Acid reflux Carpal tunnel syndrome left hand surgery Chronic kidney disease, stage 3 Home Medications ?Medication ?Instructions ?Recorded ?Last Taken ?Type cholecalciferol (vitamin D3) 50 2,000 unit PO DAILY vitamin 01/27/20 10/11/24 History mcg (2,000 unit) capsule multivitamin with minerals 1 ea PO DAILY vitamin 01/27/20 10/11/24 History aspirin 81 mg chewable tablet 81 mg PO DAILY #30 tabs 05/21/21 10/11/24 Rx metformin 1,000 mg tablet 1,000 mg PO BID #60 tabs 05/21/21 10/11/24 Rx ranolazine 1,000 mg 1,000 mg PO BID #180 tabs 07/09/21 10/11/24 Rx tablet,extended release,12 hr metoprolol tartrate 50 mg tablet 50 mg PO BID heart #0 tabs 11/27/21 10/11/24 Rx pantoprazole 40 mg tablet,delayed 40 mg PO DAILY 06/24/22 10/11/24 History release amlodipine 10 mg tablet 10 mg PO DAILY #90 tabs 07/21/22 10/11/24 Rx atorvastatin 40 mg tablet 40 mg PO QHS #90 tabs 02/10/23 10/10/24 Rx calcium carbonate (Calcium 600) 600 mg PO BID PRN supplement 07/17/23 Unknown History nitroglycerin 0.4 mg sublingual 0.4 mg sublingual Q5-15M PRN chest 07/17/23 Unknown Rx tablet (Nitrostat) pain #25 tabs albuterol sulfate 90 mcg/actuation 2 puff inhalation Q6H PRN Wheezing 07/28/23 Unknown Rx aerosol inhaler #8.5 grams beclomethasone dipropionate 40 1 inh inhalation BID asthma #10.6 09/19/24 10/11/24 Rx mcg/actuation HFA breath activated grams aerosol (Qvar RediHaler) montelukast 10 mg tablet 10 mg PO QPM #90 tabs 09/19/24 10/10/24 Rx benzonatate 200 mg capsule 200 mg PO TID PRN cough #90 caps 09/30/24 10/11/24 Rx acetaminophen 500 mg tablet 1,000 mg PO Q6H PRN pain 10/11/24 Unknown History guaifenesin 1,200 mg tablet, 1,200 mg PO BID 10/11/24 10/10/24 History extended release 12 hr (Mucinex) Allergy/AdvReac Type Severity Reaction Status Date / Time lisinopril AdvReac Unknown cough Verified 10/11/24 15:28 morphine AdvReac feels Verified 10/11/24 15:28 drunk Family History Mother Enlarged heart Asthma Father Lupus Aneurysm Sister Asthma Rheumatoid arthritis Osteoarthritis Surgical History H/O hand surgery History of left heart catheterization (05/20/21) Hx of removal of ovary History of arthroplasty of both shoulders H/O right knee surgery H/O left knee surgery History of bladder surgery Right hand surgery Hx of appendectomy Hx of cholecystectomy H/O: hysterectomy Social History household members: spouse Smoking Status: Never smoker alcohol intake: never substance use type: does not use ROS ROS Narrative Admission Review of Systems: CONSTITUTIONAL: No weight loss, fever, chills, + weakness or fatigue. HEENT: Eyes: No visual loss, blurred vision, double vision or yellow sclerae. Ears, Nose, Throat: No hearing loss, sneezing, congestion, runny nose or sore throat. SKIN: No rash or itching, lesions, wounds. CARDIOVASCULAR: No chest pain, chest pressure or chest discomfort, No palpitations, edema, orthopnea, syncopal events. RESPIRATORY: + Shortness of breath, cough with occasional productive sputum, wheezing. No hemoptysis. GASTROINTESTINAL: No anorexia, nausea, vomiting or diarrhea, abdominal pain, melena, BRBPR. GENITOURINARY: No dysuria, frequency, urgency or retention. NEUROLOGICAL: No headache, dizziness, syncope, paralysis, ataxia, numbness or tingling in the extremities, focal weakness, change in bowel or bladder control, seizure. MUSCULOSKELETAL: + muscle, back pain, joint pain or stiffness. HEMATOLOGIC: + anemia, easy bleeding/bruising. LYMPHATICS: No enlarged nodes. No history of splenectomy. PSYCHIATRIC: No history of depression or anxiety. ENDOCRINOLOGIC: No reports of sweating, cold or heat intolerance. No polyuria or polydipsia. ALLERGIES: + history of asthma, hives, eczema or rhinitis. Vital Signs Vital Signs Vital Signs: 10/11/24 15:28 10/11/24 15:30 10/11/24 17:12 Temperature 98.8 F Temperature Source Temporal Pulse Rate 81 Respiratory Rate 20 H Respiratory Effort Respiratory Depth Respiratory Pattern Blood Pressure 129/67 H Blood Pressure Mean 87 Pulse Ox 86 97 98 Oxygen Delivery Method Room Air Nasal Cannula Nasal Cannula Oxygen Flow Rate (L/min) 2 2 10/11/24 17:12 10/11/24 17:12 10/11/24 17:27 Temperature Temperature Source Pulse Rate 79 Respiratory Rate 28 H Respiratory Effort Normal Short of Breath Respiratory Depth Normal Respiratory Pattern Normal Blood Pressure Blood Pressure Mean Pulse Ox 98 97 Oxygen Delivery Method Room Air Oxygen Flow Rate (L/min) 10/11/24 17:28 10/11/24 17:30 Temperature Temperature Source Pulse Rate 77 Respiratory Rate 26 H Respiratory Effort Respiratory Depth Respiratory Pattern Tachypnea Blood Pressure Blood Pressure Mean Pulse Ox 99 Oxygen Delivery Method Oxygen Flow Rate (L/min) 2 Weight Weight: 151 lb 11.2 oz Body Mass Index (BMI) 28.6 Physical Exam Narrative Physical Examination: General: Awake, alert, oriented x 3 and cooperative, seated upright in the ED bed in no apparent distress, fatigued, notes dyspnea lessening. Skin: Normal color, normal turgor, no icterus, no cyanosis except occasional stage ecchymoses, abrasions HEENT: AT/NC, EOMI, PERRLA, mildly dry MM, no carotid bruits or JVD noted. Lungs: Notably diminished, greater bases, occasional end expiratory wheeze, crackles at the bases likely secondary to fibrotic disease, no rhonchi or rales specifically, no evidence of respiratory distress. Heart: Regular rate and rhythm; no gallop, rub audible. Abdomen: Soft, overweight, NTTP, ND, mildly hyperactive BS, no appreciated HSM. Extremities: No cyanosis, no clubbing, mild bilateral ankle not markedly pitting edema. Neurological: Patient awake, alert, oriented as noted cognitive function intact; pupils equally reactive to light and accommodation, cranial nerves grossly normal, moving all 4 extremities, no focal deficits, strength moderately to severely globally decreased secondary to acute presentation Psychiatric: Affect appears fatigued no acute evidence of depressive or anxiety feelings. Results Lab / Micro Data 10/11/24 16:09 10/11/24 16:09 Labs: Laboratory Results - last 24 hr 10/11/24 16:09: WBC 4.6, RBC 3.67 L, Hgb 11.0 L, Hct 33.4 L, MCV 91.0, MCH 30.0, MCHC 32.9, RDW Std Deviation 59.6 H, RDW Coeff of Mg 18.3 H, Plt Count 174, MPV 11.2, Immature Gran % (Auto) 0.400, Neut % (Auto) 65.5, Lymph % (Auto) 20.2, [place] % (Auto) 12.2 H, Eos % (Auto) 1.3, Baso % (Auto) 0.4, Absolute Neuts (auto) 3.0, Absolute Lymphs (auto) 0.93, Nucleated RBC % 0, Sodium 140, Potassium 3.8, Chloride 109 H, Carbon Dioxide 26.0, Anion Gap 6, BUN 11, Creatinine 1.16 H, Estim Creat Clear Calc 32.03, Est GFR (MDRD) Af Amer 57 L, Est GFR (MDRD) Non-Af 47 L, BUN/Creatinine Ratio 9.5 L, Glucose 106, Calcium 8.8 10/11/24 17:20: Lactic Acid 3.2 H* Assessment & Plan Assessment/Plan (1) Hypoxia: PLAN: Plan The patient is an 84 y/o F w/ PMHx: CAD, AAA, HTN, HLD, Diabetes mellitus type II, Rheumatoid arthritis, CKD stage III per GFR trending/chart, GERD, Asthma/Pulmonary fibrosis, AZUCENA on CPAP q HS, Chronic normocytic anemia who presents to the [facility] ED on 10/11/2024 with history of persistent ongoing cough over the last 2 months with intermittent wheezing and lower than normal pulse oximeter however she notes it is more severe over the last couple weeks waxing and waning, worse with exertion with cough productive of occasionally white sputum specifically reporting that her pulse oximeter at home was noted be 86% not on any chronic oxygen therapy with no recent fevers or chills but mild congestion and given this has been ongoing with no improvement despite 2 steroid burst outpatient prompted eventual ED evaluation. #1. Acute hypoxia secondary to concern for Possible BL LE Pneumonia complicated by underlying chronic asthma/pulmonary fibrosis with concern for acute exacerbation with associated lactic acidosis suspected secondary to hypoxemia: Will admit to medical surgical floor, maintain on oxygen with wean as tolerated to room air, continue ATC budesonide therapy, PRN albuterol, maintained on IV Solu-Medrol, maintain on IV Rocephin and Azithromycin, HOB, IS parameters w/ pending sputum cultures, full respiratory viral and urine antigens as well as procalcitonin. Bld cx x 2 obtained in the ED. PT/OT/case management consulted for discharge planning. #2. Diabetes mellitus type II: Will hold metformin, maintain on ADA diet, Accu checks with ISS. #3. Normocytic anemia: Admission hemoglobin 11, MCV 91, baseline 11-12, encourage continued outpatient evaluation and follow-up, trend CBC #4. AAA: Most recent noted imaging 02/04/2024 with abdominal aortic ultrasound with noted patent aorta, 4. 04 cm aneurysm present, right iliac artery patent with normal caliber, left iliac artery patent with ectasia to 1.37 cm, encourage continued outpatient follow-up assessment as previously arranged #5. Hypertension: We will continue patient home amlodipine, metoprolol with hold parameters as needed, as needed IV hydralazine. #6. Hyperlipidemia: We will continue patient home statin therapy. #7. Chronic Kidney Disease Stage III, unclear subtype per GFR trending: Admission BUN/Cr 1.16, GFR 47, baseline renal function 0.8-1.1, repeat BMP in AM. #8. AZUCENA: CPAP nightly. #9. GERD: Continue patient PPI for #10. Allergic rhinitis: We will continue patient home cetirizine and montelukast regimen. #11. CAD: Most recent cardiac catheterization 05/2021 with LAD 50% stenosed, circumflex with 70% ostial stenosis, RCA 30% stenosis, subsequent stress testing 03/2023 with no evidence of ischemia, continue asa, metoprolol, statin, Ranexa with focus primarily medical management given history and age. Follow-up with cardiology as previously arranged. #12. DVT prophylaxis: Lovenox. #13. CODE status: Patient and living are not in place but her daughters present would be her medical decision-maker if necessary discussed CODE status at length including difference between FULL code, DNR-CCA and DNR-CC status. Following discussions about the differences in these status, requested Full Code status. Advanced Care Planning Face to Face Time: 16 minutes. Charges/Coding Visit Charges Inpatient E&M: 58890 Init Hosp L3 Procedures Hospitalists Procedures: 87144 Advncd Care Plan 30 Min
[2024-10-11 19:33] LABS: Procalcitonin 0.06 ng/mL (0.00-0.09)
--- NOTE | 2024-10-11 19:55 | CM.ED ---
Care Management Face to Face with patient for initial transition planning/care coordination assessment in the ED.? This screenplay writer introduced self and role at [facility]. Patient lying in bed, alert and oriented. Patient willing to participate in assessment and is able to answer all questions appropriately.? Patients and daughter also at bedside, permission given for them to participate in assessment. Care providers, pharmacy, and demographics verified. Admitting Diagnosis: Cough, dyspnea, hypoxia Other diagnosis history: Diabetes, pulmonary fibrosis, chronic kidney disease PCP: ?Luz Marina Schmidt Specialists: ?Josephine Tate Preferred [facility]acy: [facility] Insurance: [employer] Prescription Benefit:?Yes Living Will/HPOA: No LNOK: Living Arrangements: patient and live in one story ranch, one step to get inside.? Patient able to complete all ADLs, meals, laundry, cleaning, medication management Transportation: ?patient drives DME: cane, walker, rollator, toilet and shower grab bars, shower chair, blood pressure cuff, pulse ox HHC: no SNF/Rehab: no Community Resources: no Behavioral Health History: no Patient goals: Patient wishes to discharge home.? Patient states she has no further needs or concerns. Disposition Plan: admission to acute; RN CM/SW to follow for discharge planning needs that may arise. Justyna Chandra, EXPANDING MACHINE OPERATOR, MANAGER FAMILY
[2024-10-11 20:54] LABS: Reflex Lactate? Y
[2024-10-11] MEDS: 0.9% Normal Saline (1000mL) 1,000 ML 100 ML IV (21:45)
[2024-10-11] MEDS: Ceftriaxone 1 GM/50 ML BAG IV (21:46)
[2024-10-11 22:20] LABS: Lactic Acid 3.1 mmol/L (0.4-1.9)
[2024-10-11] MEDS: Atorvastatin Calcium 40 MG Tablet PO (22:43)
[2024-10-11] MEDS: Metoprolol Tartrate 50 MG Tablet PO (22:43)
[2024-10-11] MEDS: Ranolazine 500 MG Tablet 1000 MG PO (22:43)
[2024-10-11] MEDS: Montelukast 10 MG Tablet PO (22:43)
[2024-10-11] MEDS: Insulin Lispro 100 UNIT/ML INSULN.PEN SC (22:44)
[2024-10-11] MEDS: 0.9% Saline Lock 10 ML Syringe IV (22:49)
--- NOTE | 2024-10-11 22:49 | CPS ---
family bringing home CPAP in tomorrow
[2024-10-11 22:53] LABS: Bedside Glucose 194 mg/dL (74-106)
[2024-10-11] MEDS: Azithromycin 500 MG in 0.9% Normal Saline (250mL Bag) 250 ML 250 MG IV (23:11)
[2024-10-11] MEDS: 0.9% Normal Saline (1000mL) 1,000 ML 999 ML IV (23:11)
[2024-10-12] VITALS (14 sets, daily range): BP systolic 105–144; BP diastolic 61–88; PULSE 78–101; RESP 16–22; TEMP 36.4–36.9; O2SAT 88–98; BMI 29.0
[2024-10-12] MEDS: 0.9% Saline Lock 10 ML Syringe IV ×3 (06:04→21:04)
[2024-10-12] MEDS: Insulin Lispro 100 UNIT/ML INSULN.PEN SC ×4 (06:09→20:53)
[2024-10-12 06:18] LABS: Absolute Lymphocyte Count 0.53 X10^3/uL (0.83-4.51); Basophil# 0.01 X10^3/uL; Basophil% 0.4 % (0-1); Hematocrit 30.8 % (37-47); Hemoglobin 9.9 g/dL (12.0-15.0); Lymphocyte # 0.53 X10^3/ul (0.83-4.51); Lymphocyte % 20.3 % (19-41); Mean Corp Hgb Conc 32.1 g/dL (32-36); Mean Corpuscular Hgb 29.3 pg (27.0-32.0); Mean Corpuscular Volume 91.1 fL (81-99); Mean Platelet Vol. 11.6 fl (6.2-12.0); Monocyte# 0.04 X10^3/uL; Monocyte% 1.5 % (0-10); NRBC Flagged by Analyzer 0 % (0-5); Neutrophil # 2.02 X10^3/uL (2.7-7.7); Neutrophil % 77.4 % (47-70); POSITIVE DIFFERENTIAL YES; Platelet Count 139 K/mm3 (150-450); RBC Distribution Width CV 18.3 % (11.6-14.6); RBC Distribution Width SD 61.3 fl (35.1-43.9); Red Blood Count 3.38 M/mm3 (4.2-5.4); White Blood Count 2.6 K/mm3 (4.4-11.0)
[2024-10-12 06:44] LABS: ALB/GLOB Ratio 0.5 RATIO (0.9-2.4); AST(SGOT) 31 U/L (15-37); Alanine Aminotransfer ALT/SGPT 21 U/L (13-56); Albumin, Serum 2.4 g/dL (3.2-5.0); Alkaline Phosphatase 54 U/L (45-117); Anion Gap 4 (5-15); BUN 14 mg/dL (7-18); Calcium,Total 8.3 mg/dL (8.5-10.1); Chloride 111 mmol/L (98-107); Creatinine, Serum 0.93 mg/dL (0.55-1.02); EST Glomerular Filtration Rate 61 mL/min (>60); Est Glom Filt Rate - Afr Amer 73 mL/min (>60); Estimated Creatinine Clearance 41.67 ml/min; Globulin 4.7 g/dL (2.2-4.2); Glucose 183 mg/dL (74-106); Protein, Total 7.1 g/dL (6.4-8.2); Sodium Level 139 mmol/L (136-145)
[2024-10-12] MEDS: Budesonide Respules 0.5 MG/2 ML AMPUL.NEB. INHALATION ×2 (06:59→19:29)
--- NOTE | 2024-10-12 07:19 | PN.HOSP_ITS ---
Reason for Visit Reason for Visit: Diagnoses Hypoxemia (10/11/24) Subjective Subjective Patient is an 84-year-old lady who presented with a month history of persistent cough as well as progressive shortness of breath imaging studies obtained on admission demonstrated stable interstitial and ground glass fibrosis/infiltrate. Admitted to regular nursing floor for further management Objective Data Objective Data Vital Signs: Vital Signs Temp Pulse Resp BP Pulse Ox O2 Del Method O2 Flow Rate 97.9 F 80 22 H 124/75 H 98 Nasal Cannula 2 10/12/24 06:12 10/12/24 07:01 10/12/24 07:01 10/12/24 06:12 10/12/24 07:01 10/12/24 07:01 10/12/24 07:01 Oxygen Flow Rate (L/min) 2 Oxygen Delivery Method Nasal Cannula Weight: 71.4 kg Body Mass Index (BMI) 29.0 Intake & Output: Intake and Output for Last 24 Hours 10/10/24 10/11/24 10/12/24 23:59 23:59 23:59 Intake Total 350 / 350 1655 / 1655 Balance 350 / 350 1655 / 1655 Lab / Micro Data 10/12/24 05:18 10/12/24 05:18 Labs: Laboratory Results - last 24 hr 10/11/24 16:09: WBC 4.6, RBC 3.67 L, Hgb 11.0 L, Hct 33.4 L, MCV 91.0, MCH 30.0, MCHC 32.9, RDW Std Deviation 59.6 H, RDW Coeff of Mg 18.3 H, Plt Count 174, MPV 11.2, Immature Gran % (Auto) 0.400, Neut % (Auto) 65.5, Lymph % (Auto) 20.2, M bryan % (Auto) 12.2 H, Eos % (Auto) 1.3, Baso % (Auto) 0.4, Absolute Neuts (auto) 3.0, Absolute Lymphs (auto) 0.93, Nucleated RBC % 0, Sodium 140, Potassium 3.8, Chloride 109 H, Carbon Dioxide 26.0, Anion Gap 6, BUN 11, Creatinine 1.16 H, Estim Creat Clear Calc 32.03, Est GFR (MDRD) Af Amer 57 L, Est GFR (MDRD) Non-Af 47 L, BUN/Creatinine Ratio 9.5 L, Glucose 106, Calcium 8.8 10/11/24 17:20: Lactic Acid 3.2 H* 10/11/24 18:53: Procalcitonin 0.06 10/11/24 21:26: Lactic Acid 3.1 H* 10/11/24 22:35: POC Glucose 194 H 10/12/24 05:18: WBC 2.6 L, RBC 3.38 L, Hgb 9.9 L, Hct 30.8 L, MCV 91.1, MCH 29.3, MCHC 32.1, RDW Std Deviation 61.3 H, RDW Coeff of Mg 18.3 H, Plt Count 139 L, MPV 11.6, Immature Gran % (Auto) 0.400, Neut % (Auto) 77.4 H, Lymph % (Auto) 20.3, [place] % (Auto) 1.5, Eos % (Auto) 0.0, Baso % (Auto) 0.4, Absolute Neuts (auto) 2.0, Absolute Lymphs (auto) 0.53 L, Nucleated RBC % 0, Sodium 139, Potassium 4.0, Chloride 111 H, Carbon Dioxide 25.0, Anion Gap 4 L, BUN 14, Creatinine 0.93, Estim Creat Clear Calc 41.67, Est GFR (MDRD) Af Amer 73, Est GFR (MDRD) Non-Af 61, BUN/Creatinine Ratio 15.0, Glucose 183 H, Calcium 8.3 L, Total Bilirubin 0.40, AST 31, ALT 21, Alkaline Phosphatase 54, Total Protein 7.1, Albumin 2.4 L, Globulin 4.7 H, Albumin/Globulin Ratio 0.5 L Micro: Microbiology 10/11/24 21:12 Mucosa - Nasopharyngeal Respiratory Panel (PCR) - Final 10/11/24 17:25 Mucosa - Nose SARS-CoV-2, Influenza & RSV (PCR) - Final Radiography Diagnostic Testing: Radiology Impression Chest X-Ray 10/11/24 17:13 IMPRESSION: Stable interstitial and groundglass fibrosis or infiltrates. Electronically Signed: Rodrigo Cole MD at 19:11 EST , Physical Exam Narrative GENERAL: cooperative HEENT: Atraumatic; normocephalic EYES; Anicteric, Normal Conjunctiva NECK; supple, normal thyroid, RESPIRATORY: Diminished to auscultation, bilateral rhonchi CARDIOVASCULAR: Regular S1 S2, GI: soft, normoactive bowel sounds, : No Renal angle tenderness; EXTREMITIES: No edema, no clubbing, MUSCULOSKELETAL: no muscle wasting NEURO: Awake; no lateralizing signs. SKIN: No Rash PSYCH; Flat affect Assessment & Plan Assessment/Plan (1) Hypoxia: PLAN: Plan Patient is an 84-year-old lady who presented with a month history of persistent cough as well as progressive shortness of breath imaging studies obtained on admission demonstrated stable interstitial and ground glass fibrosis/infiltrate. Admitted to regular nursing floor for further management 1. Acute hypoxia ? Secondary to asthma with acute exacerbation. Imaging studies on admission demonstrated stable interstitial and ground glass fibrosis/infiltrate. Admitted to regular nursing floor started on systemic steroid, bronchodilator treatment as well as inhaled budesonide. Consult placed to patient's protocol officer 2. Hypertension ? Blood pressure controlled, home medications continued with dose adjustment as needed 3. Anemia ? Secondary to chronic disorder monitoring H&H and transfuse if patient becomes symptomatic or hemoglobin falls below 7 4. Lactic acidosis ? Sepsis ruled out secondary to combination of increased work of breathing as well as patient being on metformin 5. Chronic kidney disease stage III ruled out 6. GERD ? Patient is on PPI did continue 7. Obstructive sleep apnea consistent use of PAP therapy encouraged 8. Dyslipidemia ?Patient is on statin therapy, continued at home dose 9. Coronary artery disease ?cardiac catheterization 05/2021 with LAD 50% stenosed, circumflex with 70% ostial stenosis, RCA 30% stenosis, subsequent stress testing 03/2023 with no evidence of ischemia, patient is on guideline directed medical therapy continue 10. DVT prophylaxis ? On enoxaparin Time spent in the patient's overall evaluation,decision-making process, review of diagnostic data, adjustment of management, discussion with other providers, nursing nursing and ancillary staff involved in patient's care documentation, 50 Minutes Charges/Coding Visit Charges Inpatient E&M: 17640 [facility] Hosp L3
[2024-10-12 07:56] LABS: Bedside Glucose 157 mg/dL (74-106)
[2024-10-12] MEDS: Aspirin 81 MG TAB.CHEW PO (08:37)
[2024-10-12] MEDS: Pantoprazole Sodium 40 MG Tablet PO (09:30)
[2024-10-12] MEDS: amLODIPine 10 MG Tablet PO (09:30)
[2024-10-12] MEDS: Ranolazine 500 MG Tablet 1000 MG PO ×2 (09:30→20:53)
[2024-10-12] MEDS: Enoxaparin 30 MG/0.3 ML Syringe SC (09:31)
[2024-10-12] MEDS: Metoprolol Tartrate 50 MG Tablet PO ×2 (09:31→20:54)
[2024-10-12 11:27] LABS: Bedside Glucose 183 mg/dL (74-106)
[2024-10-12] MEDS: Albuterol 2.5 MG/3 ML VIAL.NEB. INHALATION (14:25)
[2024-10-12 17:25] LABS: Bedside Glucose 250 mg/dL (74-106)
[2024-10-12] MEDS: Atorvastatin Calcium 40 MG Tablet PO (20:53)
[2024-10-12] MEDS: Montelukast 10 MG Tablet PO (20:53)
[2024-10-12] MEDS: Azithromycin 500 MG in 0.9% Normal Saline (250mL Bag) 250 ML 250 MG IV (21:08)
[2024-10-12 21:27] LABS: Bedside Glucose 241 mg/dL (74-106)
[2024-10-12] MEDS: Ceftriaxone 1 GM/50 ML BAG IV (23:01)
[2024-10-13] VITALS (7 sets, daily range): BP systolic 100–121; BP diastolic 61–84; PULSE 68–90; RESP 16–18; TEMP 36.3–36.9; O2SAT 85–99; BMI 29.4
[2024-10-13] MEDS: 0.9% Saline Lock 10 ML Syringe IV (05:04)
[2024-10-13 06:47] LABS: Absolute Lymphocyte Count 0.73 X10^3/uL (0.83-4.51); Hematocrit 29.2 % (37-47); Hemoglobin 9.4 g/dL (12.0-15.0); Lymphocyte # 0.73 X10^3/ul (0.83-4.51); Lymphocyte % 10.5 % (19-41); Mean Corp Hgb Conc 32.2 g/dL (32-36); Mean Corpuscular Hgb 29.7 pg (27.0-32.0); Mean Corpuscular Volume 92.4 fL (81-99); Mean Platelet Vol. 11.1 fl (6.2-12.0); Monocyte# 0.17 X10^3/uL; Monocyte% 2.4 % (0-10); NRBC Flagged by Analyzer 0 % (0-5); Neutrophil # 6.03 X10^3/uL (2.7-7.7); Neutrophil % 86.5 % (47-70); Platelet Count 152 K/mm3 (150-450); RBC Distribution Width CV 18.4 % (11.6-14.6); RBC Distribution Width SD 62.7 fl (35.1-43.9); Red Blood Count 3.16 M/mm3 (4.2-5.4)
[2024-10-13 07:00] LABS: Bedside Glucose 153 mg/dL (74-106)
[2024-10-13] MEDS: Albuterol 2.5 MG/3 ML VIAL.NEB. INHALATION (07:11)
[2024-10-13] MEDS: Budesonide Respules 0.5 MG/2 ML AMPUL.NEB. INHALATION (07:11)
[2024-10-13 07:22] LABS: Anion Gap 4 (5-15); BUN 18 mg/dL (7-18); BUN/Creat Ratio 19.8 RATIO (10-20); Calcium,Total 8.1 mg/dL (8.5-10.1); Chloride 109 mmol/L (98-107); Creatinine, Serum 0.91 mg/dL (0.55-1.02); EST Glomerular Filtration Rate 63 mL/min (>60); Est Glom Filt Rate - Afr Amer 76 mL/min (>60); Estimated Creatinine Clearance 42.94 ml/min; Glucose 161 mg/dL (74-106); Magnesium 1.7 mg/dL (1.6-2.6); Phosphorus 2.6 mg/dL (2.5-4.9); Sodium Level 138 mmol/L (136-145)
--- NOTE | 2024-10-13 07:36 | PN.HOSP_ITS ---
Reason for Visit Reason for Visit: Diagnoses Hypoxemia (10/11/24) Subjective Subjective Patient seen admit to improvement in her breathing. Patient is requesting to be discharged. Patient had positive blood cultures coagulation negative staph possibly contaminant. Objective Data Objective Data Vital Signs: Vital Signs Temp Pulse Resp BP Pulse Ox O2 Del Method O2 Flow Rate 97.3 F L 90 18 110/73 93 Nasal Cannula 2 10/13/24 06:30 10/13/24 07:11 10/13/24 07:11 10/13/24 06:30 10/13/24 07:11 10/13/24 07:11 10/13/24 07:11 Oxygen Flow Rate (L/min) 2 Oxygen Delivery Method Nasal Cannula Weight: 72.6 kg Body Mass Index (BMI) 29.4 Intake & Output: Intake and Output for Last 24 Hours 10/11/24 10/12/24 10/13/24 23:59 23:59 23:59 Intake Total 350 / 350 3260 / 3260 120 / 120 Output Total 675 / 675 Balance 350 / 350 3260 / 3260 -555 / -555 Lab / Micro Data 10/13/24 05:28 10/13/24 05:28 Labs: Laboratory Results - last 24 hr 10/12/24 06:08: POC Glucose 157 H 10/12/24 11:00: POC Glucose 183 H 10/12/24 17:03: POC Glucose 250 H 10/12/24 20:51: POC Glucose 241 H 10/13/24 05:28: WBC 7.0, RBC 3.16 L, Hgb 9.4 L, Hct 29.2 L, MCV 92.4, MCH 29.7, MCHC 32.2, RDW Std Deviation 62.7 H, RDW Coeff of Mg 18.4 H, Plt Count 152, MPV 11.1, Immature Gran % (Auto) 0.600, Neut % (Auto) 86.5 H, Lymph % (Auto) 10.5 L, [place] % (Auto) 2.4, Eos % (Auto) 0.0, Baso % (Auto) 0.0, Absolute Neuts (auto) 6.0, Absolute Lymphs (auto) 0.73 L, Nucleated RBC % 0, Sodium 138, Potassium 4.0, Chloride 109 H, Carbon Dioxide 25.0, Anion Gap 4 L, BUN 18, Creatinine 0.91, Estim Creat Clear Calc 42.94, Est GFR (MDRD) Af Amer 76, Est GFR (MDRD) Non-Af 63, BUN/Creatinine Ratio 19.8, Glucose 161 H, Calcium 8.1 L, Phosphorus 2.6, Magnesium 1.7 10/13/24 06:39: POC Glucose 153 H Micro: Microbiology 10/11/24 17:36 Blood Culture (Wb) - Anticubital Right Bacteria Detection (PCR) - Final Coag Negative Staph 10/11/24 17:36 Blood Culture (Wb) - Anticubital Right Blood Culture - Preliminary Coag Negative Staph 10/11/24 10:30 Urine, Clean Catch Legionella Antigen - Final 10/11/24 10:30 Urine, Clean Catch Streptococcus pneumoniae Antigen (M - Final 10/11/24 21:12 Mucosa - Nasopharyngeal Respiratory Panel (PCR) - Final 10/11/24 17:25 Mucosa - Nose SARS-CoV-2, Influenza & RSV (PCR) - Final Physical Exam Narrative GENERAL: cooperative HEENT: Atraumatic; normocephalic EYES; Anicteric, Normal Conjunctiva NECK; supple, normal thyroid, RESPIRATORY: Diminished to auscultation, bilateral rhonchi CARDIOVASCULAR: Regular S1 S2, GI: soft, normoactive bowel sounds, : No Renal angle tenderness; EXTREMITIES: No edema, no clubbing, MUSCULOSKELETAL: no muscle wasting NEURO: Awake; no lateralizing signs. SKIN: No Rash PSYCH; Flat affect Assessment & Plan Assessment/Plan (1) Hypoxia: PLAN: Plan Patient is an 84-year-old lady who presented with a month history of persistent cough as well as progressive shortness of breath imaging studies obtained on admission demonstrated stable interstitial and ground glass fibrosis/infiltrate. Admitted to regular nursing floor for further management 1. Acute hypoxia ? Secondary to asthma with acute exacerbation. Imaging studies on admission demonstrated stable interstitial and ground glass fibrosis/infiltrate. Admitted to regular nursing floor started on systemic steroid, bronchodilator treatment as well as inhaled budesonide. ? 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 Hypertension ? Blood pressure controlled, home medications continued with dose adjustment as needed 3. Anemia ? Secondary to chronic disorder monitoring H&H and transfuse if patient becomes symptomatic or hemoglobin falls below 7 4. Lactic acidosis ? Sepsis ruled out secondary to combination of increased work of breathing as well as patient being on metformin 5. Chronic kidney disease stage III ruled out 6. GERD ? Patient is on PPI did continue 7. Obstructive sleep apnea consistent use of PAP therapy encouraged 8. Dyslipidemia ?Patient is on statin therapy, continued at home dose 9. Coronary artery disease ?cardiac catheterization 05/2021 with LAD 50% stenosed, circumflex with 70% ostial stenosis, RCA 30% stenosis, subsequent stress testing 03/2023 with no evidence of ischemia, patient is on guideline directed medical therapy continue 10. Positive blood cultures with probably negative staph ? Assessed to be contaminant. 10. DVT prophylaxis ? On enoxaparin Time spent in the patient's overall evaluation,decision-making process, review of diagnostic data, adjustment of management, discussion with other providers, nursing nursing and ancillary staff involved in patient's care documentation, 35 Minutes Charges/Coding Visit Charges Inpatient E&M: 17548 Subs Hosp L2
[2024-10-13] MEDS: Insulin Lispro 100 UNIT/ML INSULN.PEN SC (07:59)
[2024-10-13] MEDS: Aspirin 81 MG TAB.CHEW PO (07:59)
[2024-10-13] MEDS: Metoprolol Tartrate 50 MG Tablet PO (09:06)
[2024-10-13] MEDS: Ranolazine 500 MG Tablet 1000 MG PO (09:06)
[2024-10-13] MEDS: Pantoprazole Sodium 40 MG Tablet PO (09:06)
[2024-10-13] MEDS: Enoxaparin 30 MG/0.3 ML Syringe SC (09:06)
[2024-10-13] MEDS: amLODIPine 10 MG Tablet PO (09:06)
--- NOTE | 2024-10-13 10:31 | PCM.DC.SUM ---
Providers Date of Admission: 10/11/24 Date of Discharge: 10/13/24 Primary Care Physician: JOSUÉ Christy Reason For Visit: HYPOXIA, ASTHMA EXAC, POSS PNA Diagnosis Discharge Diagnosis (1) Hypoxia: Status: Acute Code(s): R09.02 - Hypoxemia Plan Patient is an 84-year-old lady who presented with a month history of persistent cough as well as progressive shortness of breath imaging studies obtained on admission demonstrated stable interstitial and ground glass fibrosis/infiltrate. Admitted to regular nursing floor for further management 1. Acute hypoxia ? Secondary to asthma with acute exacerbation. Imaging studies on admission demonstrated stable interstitial and ground glass fibrosis/infiltrate. Admitted to regular nursing floor started on systemic steroid, bronchodilator treatment as well as inhaled budesonide. ? 10/13/2024; patient breathing improved patient be discharged home to follow-up with her keno attendant 2. Hypertension ? Blood pressure controlled, home medications continued with dose adjustment as needed 3. Anemia ? Secondary to chronic disorder monitoring H&H and transfuse if patient becomes symptomatic or hemoglobin falls below 7 4. Lactic acidosis ? Sepsis ruled out secondary to combination of increased work of breathing as well as patient being on metformin 5. Chronic kidney disease stage III ruled out 6. GERD ? Patient is on PPI did continue 7. Obstructive sleep apnea consistent use of PAP therapy encouraged 8. Dyslipidemia ?Patient is on statin therapy, continued at home dose 9. Coronary artery disease ?cardiac catheterization 05/2021 with LAD 50% stenosed, circumflex with 70% ostial stenosis, RCA 30% stenosis, subsequent stress testing 03/2023 with no evidence of ischemia, patient is on guideline directed medical therapy continue 10. Positive blood cultures with probably negative staph ? Assessed to be contaminant. 10. DVT prophylaxis ? On enoxaparin Time spent in the patient's overall evaluation,decision-making process, review of diagnostic data, adjustment of management, discussion with other providers, nursing nursing and ancillary staff involved in patient's care documentation, 35 Minutes Medications at Discharge Home Medications cholecalciferol (vitamin D3) 50 mcg (2,000 unit) capsule 2,000 unit PO DAILY vitamin 01/27/20 multivitamin with minerals 1 ea PO DAILY vitamin 01/27/20 aspirin 81 mg chewable tablet 81 mg PO DAILY #30 tabs 05/21/21 metformin 1,000 mg tablet 1,000 mg PO BID #60 tabs 05/21/21 ranolazine 1,000 mg tablet,extended release,12 hr 1,000 mg PO BID #180 tabs 07/09/21 metoprolol tartrate 50 mg tablet 50 mg PO BID heart #0 tabs 11/27/21 pantoprazole 40 mg tablet,delayed release 40 mg PO DAILY 06/24/22 amlodipine 10 mg tablet 10 mg PO DAILY #90 tabs 07/21/22 atorvastatin 40 mg tablet 40 mg PO QHS #90 tabs 02/10/23 calcium carbonate (Calcium 600) 600 mg PO BID PRN supplement 07/17/23 nitroglycerin 0.4 mg sublingual tablet (Nitrostat) 0.4 mg sublingual Q5-15M PRN chest pain #25 tabs 07/17/23 albuterol sulfate 90 mcg/actuation aerosol inhaler 2 puff inhalation Q6H PRN Wheezing #8.5 grams 07/28/23 beclomethasone dipropionate 40 mcg/actuation HFA breath activated aerosol (Qvar RediHaler) 1 inh inhalation BID asthma #10.6 grams 09/19/24 montelukast 10 mg tablet 10 mg PO QPM #90 tabs 09/19/24 benzonatate 200 mg capsule 200 mg PO TID PRN cough #90 caps 09/30/24 acetaminophen 500 mg tablet 1,000 mg PO Q6H PRN pain 10/11/24 guaifenesin 1,200 mg tablet, extended release 12 hr (Mucinex) 1,200 mg PO BID 10/11/24 cefdinir 300 mg capsule 300 mg PO BID #10 caps 10/13/24 guaifenesin 1,200 mg tablet, extended release 12 hr (Mucus Relief ER) 1,200 mg PO BID #20 tabs 10/13/24 prednisone 20 mg tablet 20 mg PO BID #10 tabs 10/13/24 Physical Exam Narrative GENERAL: cooperative HEENT: Atraumatic; normocephalic EYES; Anicteric, Normal Conjunctiva NECK; supple, normal thyroid, RESPIRATORY: Diminished to auscultation, bilateral rhonchi CARDIOVASCULAR: Regular S1 S2, GI: soft, normoactive bowel sounds, : No Renal angle tenderness; EXTREMITIES: No edema, no clubbing, MUSCULOSKELETAL: no muscle wasting NEURO: Awake; no lateralizing signs. SKIN: No Rash PSYCH; Flat affect Weight / BMI Weight Weight: 72.6 kg Body Mass Index (BMI) 29.4 ABG / Lab / Microbiology Data 10/13/24 05:28 10/13/24 05:28 Laboratory: Laboratory Results - last 24 hr 10/12/24 17:03: POC Glucose 250 H 10/12/24 20:51: POC Glucose 241 H 10/13/24 05:28: WBC 7.0, RBC 3.16 L, Hgb 9.4 L, Hct 29.2 L, MCV 92.4, MCH 29.7, MCHC 32.2, RDW Std Deviation 62.7 H, RDW Coeff of Mg 18.4 H, Plt Count 152, MPV 11.1, Immature Gran % (Auto) 0.600, Neut % (Auto) 86.5 H, Lymph % (Auto) 10.5 L, [place] % (Auto) 2.4, Eos % (Auto) 0.0, Baso % (Auto) 0.0, Absolute Neuts (auto) 6.0, Absolute Lymphs (auto) 0.73 L, Nucleated RBC % 0, Sodium 138, Potassium 4.0, Chloride 109 H, Carbon Dioxide 25.0, Anion Gap 4 L, BUN 18, Creatinine 0.91, Estim Creat Clear Calc 42.94, Est GFR (MDRD) Af Amer 76, Est GFR (MDRD) Non-Af 63, BUN/Creatinine Ratio 19.8, Glucose 161 H, Calcium 8.1 L, Phosphorus 2.6, Magnesium 1.7 10/13/24 06:39: POC Glucose 153 H Microbiology: Microbiology 10/11/24 17:36 Blood Culture (Wb) - Anticubital Right Bacteria Detection (PCR) - Final Coag Negative Staph 10/11/24 17:36 Blood Culture (Wb) - Anticubital Right Blood Culture - Preliminary Coag Negative Staph 10/11/24 10:30 Urine, Clean Catch Legionella Antigen - Final 10/11/24 10:30 Urine, Clean Catch Streptococcus pneumoniae Antigen (M - Final 10/11/24 21:12 Mucosa - Nasopharyngeal Respiratory Panel (PCR) - Final 10/11/24 17:25 Mucosa - Nose SARS-CoV-2, Influenza & RSV (PCR) - Final D/C Instructions DC O2, CPAP, BIPAP Needs RN Home O2 Qualification: Home O2 Qualification: Is the patient on home oxygen No 10/13/24 11:15 Home O2 Qualification: AT REST 1- Pulse Ox at rest 94 10/13/24 11:15 Home O2 Qualification: WITH AMBULATION 1- Pulse Ox with ambulation 85 10/13/24 11:15 1- Oxygen Flow Rate with 0 10/13/24 11:15 ambulation 2- Pulse Ox with ambulation 86 10/13/24 11:15 2- Oxygen Flow Rate with 1 10/13/24 11:15 ambulation 3- Pulse Ox with ambulation 91 10/13/24 11:15 3- Oxygen Flow Rate with 2 10/13/24 11:15 ambulation 3- Stopped test - Unable to Yes 10/13/24 11:15 obtain pulse ox >89% w/ max oxyg Home O2 Discharge instructions: Yes Type of respiratory needs?: Oxygen Oxygen frequency: Continuous Continuous oxygen liters per minute: 2L DC home with Oxygen: Yes Home O2 MD Review: I have reviewed the oxygen testing, and the patient qualifies for home oxygen equipment and portability. The patient is mobile in the home and the community. Meaningful Use Info Meaningful Use Meaningful Use Diagnoses (Choose all that apply): None applicable Ischemic Stroke Statin Dosing Therapy Reference: STATIN DOSE THERAPY REFERENCE: * Patients > 75 years receive moderate or high dose statin therapy. * Patients 75 years or YOUNGER should receive HIGH intensity statin dose unless contraindicated. You will be required to document reason for non-treatment if statin daily dose does not meet guidelines. HIGH DOSE STATIN THERAPY DAILY Atorvastatin > than or = to 40 mg Rosuvastatin > than or = to 20 mg Amlodipine + Atorvastatin > than or = to 2.5/40 mg Ezetimibe + Simvastatin 10/80 mg Simvastatin 80mg Discharge Plan Admission Admit Date/Time: 10/11/24 18:46 Attending Provider: Oliverio Cardenas Primary Care Provider: Luz Marina Schmidt NP Consulting Providers: Zoey Oliver Discharge Orders/Prescriptions Prescriptions: New prednisone 20 mg tablet 20 mg PO BID Qty: 10 0RF cefdinir 300 mg capsule 300 mg PO BID Qty: 10 0RF guaifenesin [Mucus Relief ER] 1,200 mg tablet extended release 12hr 1,200 mg PO BID Qty: 20 0RF Continued calcium carbonate [Calcium 600] 600 mg calcium (1,500 mg) tablet 600 mg PO BID PRN (Reason: supplement) pantoprazole 40 mg tablet,delayed release (DR/EC) 40 mg PO DAILY albuterol sulfate 90 mcg/actuation HFA aerosol inhaler 2 puff inhalation Q6H PRN (Reason: Wheezing) Qty: 8.5 6RF nitroglycerin [Nitrostat] 0.4 mg tablet, sublingual 0.4 mg sublingual Q5-15M PRN (Reason: chest pain) Qty: 25 3RF Rx Instructions: do not exceed 3 doses per episode multivitamin with minerals 1 EACH tablet 1 ea PO DAILY cholecalciferol (vitamin D3) 2,000 UNIT capsule 2,000 unit PO DAILY aspirin 81 mg tablet,chewable 81 mg PO DAILY Qty: 30 1RF metformin 1,000 mg tablet 1,000 mg PO BID Qty: 60 1RF metoprolol tartrate 50 MG tablet 50 mg PO BID Qty: 0 0RF Rx Instructions: Hold for heart less than 60 or systolic blood pressure less than 100 mmHg. acetaminophen 500 mg tablet 1,000 mg PO Q6H PRN (Reason: pain) guaifenesin [Mucinex] 1,200 mg tablet extended release 12hr 1,200 mg PO BID ranolazine 1,000 mg tablet extended release 12 hr 1,000 mg PO BID Qty: 180 3RF amlodipine 10 mg tablet 10 mg PO DAILY Qty: 90 3RF atorvastatin 40 mg tablet 40 mg PO QHS Qty: 90 3RF Qvar RediHaler 40 mcg/actuation HFA aerosol breath activated 1 inh INHALATION BID Qty: 10.6 11RF montelukast 10 mg tablet 10 mg PO QPM Qty: 90 3RF benzonatate 200 mg capsule 200 mg PO TID PRN (Reason: cough) Qty: 90 0RF Referrals / Follow Up: Luz Marina Schmidt NP, TUBE OPERATOR-C [Primary Care Provider] - Within 1 Week Disposition Disposition (needs filled in before D/C Order can be placed): Home, Self Care Charges/Coding Visit Charges Inpatient E&M: 35173 Disch Hosp >30min
--- NOTE | 2024-10-13 11:28 | NURSING ---
electrical design technologist documentation reveiwed
--- NOTE | 2024-10-13 11:41 | CASEMGMT ---
Addendum entered by Darlyn Sanchez 10/13/24 11:51: Provided pt a verbal local in network list of DME companies. Pt has used [employer] and [employer] in the past, pt chose [employer]. Referral sent to [facility] for oxygen needs via careport. Original Note: RN CM into pt room, pt sitting up in chair. Discussed homegoing services, pt denies need for any therapy or nursing despite needing oxygen at home and having recent falls. Pt states she feels safe at home and is ready for dc. Reviewed homegoing oxygen information. Pt denies any further needs at this time.
--- NOTE | 2024-10-13 14:42 | CASEMGMT ---
Social Work- SW met with pt to complete HCPOA paperwork per pt request. Pt named dtr, Mariam, as primary agent and son, Fady, as alternate agent. Pt was provided original and copy for dtr; copy placed on pt chart. Pt states no other needs. MARLENE Funez
[2024-10-17 13:31] LABS: Pathologist Review Reviewed
== END 2024-10-13 14:52 | disposition home or self-care (01) | DRG 202 ==
LOC: ED 18:47 → MS3 20:33
PROVIDERS: Admitting Provider Family Medicine; Emergency Provider Emergency Medicine; PCP Registered Nurse; Visit Provider Internal Medicine
DX: J45.901 Unspecified asthma with (acute) exacerbation (principal); E87.20 Acidosis, unspecified; D63.8 Anemia in other chronic diseases classified elsewhere; J84.10 Pulmonary fibrosis, unspecified; E11.9 Type 2 diabetes mellitus without complications; M06.9 Rheumatoid arthritis, unspecified; I10 Essential (primary) hypertension; I71.40 Abdominal aortic aneurysm, without rupture, unspecified; E78.5 Hyperlipidemia, unspecified; G47.33 Obstructive sleep apnea (adult) (pediatric); I25.10 Atherosclerotic heart disease of native coronary artery without angina pectoris; K21.9 Gastro-esophageal reflux disease without esophagitis; T38.3X5A Adverse effect of insulin and oral hypoglycemic [antidiabetic] drugs, initial encounter; R79.89 Other specified abnormal findings of blood chemistry; R09.02 Hypoxemia; Z87.19 Personal history of other diseases of the digestive system; Z79.82 Long term (current) use of aspirin; Z79.84 Long term (current) use of oral hypoglycemic drugs; Z79.899 Other long term (current) drug therapy; Z90.49 Acquired absence of other specified parts of digestive tract; Z79.51 Long term (current) use of inhaled steroids
CPT/HCPCS: 36415; 71046; 80048; 80053; 82962; 83605; 83735; 84100; 84145; 85025; 87040; 87070; 87149; 87205; 87449; 87631; 87633; 93005; 94640; 94668; 94760; 97162; 99285; A4216; J0696

== ENCOUNTER 2024-11-24 14:32 | Emergency (ER) | payer MEDICARE, SELFPAY ==
[2024-11-24 14:33] VITALS: BP 132/75; PULSE 85; RESP 16; TEMP 36.3; O2SAT 96
[2024-11-24 18:32] VITALS: BP 125/63
[2024-11-24 18:57] VITALS: BMI 28.0
--- NOTE | 2024-11-24 19:58 | CT_ITS ---
PROCEDURE: SPINE LUMBAR WITHOUT CONTRAST REASON FOR EXAM: Back/flank pain.. TECHNIQUE: Lumbar spine CT with contrast. CONTRAST: COMPARISON: None. FINDINGS: Vertebral body heights are maintained. No evidence of acute fracture or dislocation. Severe discogenic degenerative changes of the visualized spine. Severe lower lumbar facet arthropathy. Abdominal aortic 4.[address]/Spine Lumbar without Contrast IMPRESSION: No acute osseous abnormality. Severe spondylosis. Abdominal aorta aneurysm. One or more dose reduction techniques were used (e.g., Automated exposure contr ol, adjustment of the mA and/or kV according to patient size, use of iterative reconstruction technique). Reading Location: [place] [id number]
--- NOTE | 2024-11-24 19:58 | CT_ITS ---
PROCEDURE: ABDOMEN/PELVIS WITHOUT CONT REASON FOR EXAM: Flank pain. TECHNIQUE: Abdomen and pelvis CT without intravenous contrast. IV CONTRAST: None. COMPARISON: None. FINDINGS: Lung bases: [id number]-left perihilar consolidation. Diffuse ground- glass opacities. Right lower lobe honeycombing. Liver: Nodular hepatic surface contour suspicious for cirrhosis. Gallbladder: Surgically absent. Spleen: Unremarkable. Pancreas: Unremarkable. Adrenals: Unremarkable. Kidneys: Unremarkable. Bladder: Unremarkable. Reproductive Organs: Surgically absent uterus. Bowel: Unremarkable. Appendix: Normal. Lymph nodes: No suspicious lymph node enlargement. Vasculature: Severe atherosclerosis. Infrarenal abdominal aortic aneurysm measuring 4.4 cm. Peritoneum / Retroperitoneum: No ascites. No free air. Bones: Left hip internal fixation. Severe spondylosis. Degenerative changes of the hips. CT/Abdomen/Pelvis without Cont IMPRESSION: Infrarenal abdominal aortic aneurysm. Nodular hepatic surface contour suspicious for cirrhosis. Partially visualized chronic interstitial changes of the lung bases. Likely so me component of fibrosis. Superimposed infection can not be excluded. One or more dose reduction techniques were used (e.g., Automated exposure contr ol, adjustment of the mA and/or kV according to patient size, use of iterative reconstruction technique). Reading Location: [place] [id number]
--- NOTE | 2024-11-24 19:59 | ED.VIS.BACK ---
HPI History of Present Illness Chief Complaint: Back Narrative Narrative: 84-year-old female past medical history of chronic hypoxic respiratory failure, wears oxygen per nasal cannula three quarters of the time, presents with approximately 1 day history of left-sided back pain/flank pain. She denies any fevers or chills, no nausea or vomiting, no dysuria or hematuria. She relays history that she fell about a month ago but has not had back pain after the fall until yesterday. She has history of an abdominal aortic aneurysm and is concerned about that. She also thinks that she may have a urinary tract infection causing her pain although she denies any dysuria or hematuria. There is no exacerbating or alleviating factors to her left flank pain/low back pain. She states that radiates both up and down, but not towards the front. She has been taking Tylenol with mild relief of her symptoms. [facility] Medical History Abdominal aortic aneurysm (01/03/22) Atherosclerotic heart disease of [place] coronary artery without angina pectoris Essential hypertension Diabetes mellitus, type 2 Rheumatoid arthritis Pancreatitis Shingles Pulmonary fibrosis Arthritis Asthma Acid reflux Carpal tunnel syndrome left hand surgery Chronic kidney disease, stage 3 Home Medications ?Medication ?Instructions ?Recorded ?Last Taken ?Type cholecalciferol (vitamin D3) 50 2,000 unit PO DAILY vitamin 01/27/20 10/11/24 History mcg (2,000 unit) capsule multivitamin with minerals 1 ea PO DAILY vitamin 01/27/20 10/11/24 History aspirin 81 mg chewable tablet 81 mg PO DAILY #30 tabs 05/21/21 10/11/24 Rx metformin 1,000 mg tablet 1,000 mg PO BID #60 tabs 05/21/21 10/11/24 Rx ranolazine 1,000 mg 1,000 mg PO BID #180 tabs 07/09/21 10/11/24 Rx tablet,extended release,12 hr metoprolol tartrate 50 mg tablet 50 mg PO BID heart #0 tabs 11/27/21 10/11/24 Rx pantoprazole 40 mg tablet,delayed 40 mg PO DAILY 06/24/22 10/11/24 History release amlodipine 10 mg tablet 10 mg PO DAILY #90 tabs 07/21/22 10/11/24 Rx atorvastatin 40 mg tablet 40 mg PO QHS #90 tabs 02/10/23 10/10/24 Rx calcium carbonate (Calcium 600) 600 mg PO BID PRN supplement 07/17/23 Unknown History nitroglycerin 0.4 mg sublingual 0.4 mg sublingual Q5-15M PRN chest 07/17/23 Unknown Rx tablet (Nitrostat) pain #25 tabs albuterol sulfate 90 mcg/actuation 2 puff inhalation Q6H PRN Wheezing 07/28/23 Unknown Rx aerosol inhaler #8.5 grams montelukast 10 mg tablet 10 mg PO QPM #90 tabs 09/19/24 10/10/24 Rx benzonatate 200 mg capsule 200 mg PO TID PRN cough #90 caps 09/30/24 10/11/24 Rx acetaminophen 500 mg tablet 1,000 mg PO Q6H PRN pain 10/11/24 Unknown History guaifenesin 1,200 mg tablet, 1,200 mg PO BID 10/11/24 10/10/24 History extended release 12 hr (Mucinex) guaifenesin 1,200 mg tablet, 1,200 mg PO BID #20 tabs 10/13/24 Unknown Rx extended release 12 hr (Mucus Relief ER) cetirizine 5 mg tablet 5 mg PO QDAY 11/14/24 Unknown History fluticasone fur. 200 mcg-umeclid 1 inh inhalation DAILY #60 ea 11/14/24 Unknown Rx 62.5 mcg-vilant 25 mcg inhalat.powder (Trelegy Ellipta) Allergy/AdvReac Type Severity Reaction Status Date / Time lisinopril AdvReac Unknown cough Verified 11/24/24 21:12 morphine AdvReac feels Verified 11/24/24 21:12 drunk Family History Mother Enlarged heart Asthma Father Lupus Aneurysm Sister Asthma Rheumatoid arthritis Osteoarthritis Surgical History H/O hand surgery History of left heart catheterization (05/20/21) Hx of removal of ovary History of arthroplasty of both shoulders H/O right knee surgery H/O left knee surgery History of bladder surgery Right hand surgery Hx of appendectomy Hx of cholecystectomy H/O: hysterectomy Social History household members: spouse Smoking Status: Never smoker alcohol intake: never substance use type: does not use ROS ROS ED ROS Narrative Review of systems for left flank pain/low back pain radiating both up and down. No fevers or chills, no nausea or vomiting, no loss of bowel or bladder. No dysuria or hematuria. Relieved with Tylenol. EXAM Physical Exam Narrative Exam Narrative: Afebrile. Vital signs noted. Nontoxic-appearing. Cardiovascular examination reveals a regular rate and rhythm. Lungs are clear to auscultation bilaterally. Abdomen is soft and nontender without guarding or rebound. Positive bowel sounds. Neurological examination nonfocal and nonlateralizing. Questionable CVA tenderness to percussion left. Able to sit up on examination. Const Vital Signs: 11/24/24 14:33 11/24/24 18:32 Temperature 97.3 F L Temperature Source Temporal Pulse Rate 85 Respiratory Rate 16 Blood Pressure 132/75 H 125/63 H Blood Pressure Mean 94 83 Pulse Ox 96 Oxygen Delivery Method Nasal Cannula Oxygen Flow Rate (L/min) 2 MDM MDM MDM Narrative Medical decision making narrative: Differential diagnosis includes but not limited to UTI versus pyelonephritis versus ureterolithiasis versus arthritis/spinal stenosis of left back versus lumbar compression fracture. I have very low suspicion for leaking aortic aneurysm based on her history and physical and that her pain started yesterday. Comprehensive workup was pursued including CT imaging of the abdomen and pelvis without contrast to look for ureteral lithiasis as well as CBC, BMP, and urinalysis. I will also obtain CT imaging dedicated to the lumbar spine. This is to rule out fracture. I reviewed her laboratory work and she has a neutropenia of 3.9. In review of her prior laboratories she has had this in the past and it was lower. Hemoglobin stable at 10.3, platelet count slightly low at 148. Review of her electrolytes showed normal sodium of 141, potassium 3.6, BUN normal at 11, creatinine 0.78. Glucose appropriately elevated at 128 with a normal anion gap of 6. Review of her urinalysis shows 0-5 WBCs and 0 RBCs. I do not feel antibiotics are indicated. I reviewed the radiology reports of the CT of the lumbar spine and there is no evidence of an acute fracture but she has severe degenerative changes. I do feel this is probably the origin of her pain. Additionally, CT of the abdomen and pelvis obtained and there is no free fluid and her abdominal aortic aneurysm appears stable. Upon repeat examination, she is resting comfortably on the cot. I feel she can be discharged to follow-up with her primary care provider. She will continue her over the counter Tylenol as needed for pain. She was reassured regarding her abdominal aortic aneurysm as she was not majorly concerned about this. Return instructions to the emergency department were reviewed. Disposition is discharged home in stable condition. History & Record Review Discussion w/independent historian: Patient Additional record(s) reviewed:: Prior labs Lab Data Attestation: I reviewed the patient's lab results. Labs: Laboratory Results - last 24 hr 11/24/24 11/24/24 20:10 20:54 WBC 3.9 L RBC 3.53 L Hgb 10.3 L Hct 31.2 L MCV 88.4 MCH 29.2 MCHC 33.0 RDW Std Deviation 53.2 H RDW Coeff of Mg 16.6 H Plt Count 148 L MPV 11.0 Immature Gran % (Auto) 0.500 Neut % (Auto) 61.6 Lymph % (Auto) 27.1 [place] % (Auto) 9.8 Eos % (Auto) 0.5 Baso % (Auto) 0.5 Absolute Neuts (auto) 2.4 Absolute Lymphs (auto) 1.05 Nucleated RBC % 0 Sodium 141 Potassium 3.6 Chloride 107 Carbon Dioxide 29.0 Anion Gap 6 BUN 11 Creatinine 0.78 Estim Creat Clear Calc 46.51 Est GFR (MDRD) Af Amer 91 Est GFR (MDRD) Non-Af 75 BUN/Creatinine Ratio 14.2 Glucose 128 H Calcium 8.9 Urine Color Yellow Urine Clarity Clear Urine pH 6.0 Ur Specific [place] 1.015 Urine Protein 30 H Urine Glucose (UA) Normal Urine Ketones Negative Urine Occult Blood Negative Urine Nitrite Negative Urine Bilirubin Negative Urine Urobilinogen Normal Ur Leukocyte Esterase 500 H Urine RBC 0 SEEN Urine WBC 0-5 SEEN Ur Squamous Epith Cells 0-5 SEEN Urine Bacteria RARE Urine Mucus 0 SEEN Radiography Diagnostic Testing: Clinical Impression(s) from Imaging Studies Abdomen/Pelvis CT 11/24/24 19:58 IMPRESSION: Infrarenal abdominal aortic aneurysm. Nodular hepatic surface contour suspicious for cirrhosis. Partially visualized chronic interstitial changes of the lung bases. Likely some component of fibrosis. Superimposed infection can not be excluded. One or more dose reduction techniques were used (e.g., Automated exposure control, adjustment of the mA and/or kV according to patient size, use of iterative reconstruction technique). Reading Location: [id number] 11/24/24 19:58 IMPRESSION: No acute osseous abnormality. Severe spondylosis. Abdominal aorta aneurysm. One or more dose reduction techniques were used (e.g., Automated exposure control, adjustment of the mA and/or kV according to patient size, use of iterative reconstruction technique). Reading Location: [id number] Discharge Plan Triage Chief Complaint: Back ED Provider: Mark June Dx/Rx/DC Orders Clinical Impression: Back pain, Abdominal aortic aneurysm, Neutropenia, Acute left-sided low back pain Instructions: Neutropenia, ED Back Pain (Acute or Chronic), ED AAA Stable Prescriptions: No Action calcium carbonate [Calcium 600] 600 mg calcium (1,500 mg) tablet 600 mg PO BID PRN (Reason: supplement) pantoprazole 40 mg tablet,delayed release (DR/EC) 40 mg PO DAILY albuterol sulfate 90 mcg/actuation HFA aerosol inhaler 2 puff inhalation Q6H PRN (Reason: Wheezing) Qty: 8.5 6RF nitroglycerin [Nitrostat] 0.4 mg tablet, sublingual 0.4 mg sublingual Q5-15M PRN (Reason: chest pain) Qty: 25 3RF Rx Instructions: do not exceed 3 doses per episode cetirizine 5 mg tablet 5 mg PO QDAY Trelegy Ellipta 200-62.5-25 mcg blister with device 1 inh inhalation DAILY Qty: 60 6RF multivitamin with minerals 1 EACH tablet 1 ea PO DAILY cholecalciferol (vitamin D3) 2,000 UNIT capsule 2,000 unit PO DAILY aspirin 81 mg tablet,chewable 81 mg PO DAILY Qty: 30 1RF metformin 1,000 mg tablet 1,000 mg PO BID Qty: 60 1RF metoprolol tartrate 50 MG tablet 50 mg PO BID Qty: 0 0RF Rx Instructions: Hold for heart less than 60 or systolic blood pressure less than 100 mmHg. acetaminophen 500 mg tablet 1,000 mg PO Q6H PRN (Reason: pain) guaifenesin [Mucinex] 1,200 mg tablet extended release 12hr 1,200 mg PO BID guaifenesin [Mucus Relief ER] 1,200 mg tablet extended release 12hr 1,200 mg PO BID Qty: 20 0RF ranolazine 1,000 mg tablet extended release 12 hr 1,000 mg PO BID Qty: 180 3RF amlodipine 10 mg tablet 10 mg PO DAILY Qty: 90 3RF atorvastatin 40 mg tablet 40 mg PO QHS Qty: 90 3RF montelukast 10 mg tablet 10 mg PO QPM Qty: 90 3RF benzonatate 200 mg capsule 200 mg PO TID PRN (Reason: cough) Qty: 90 0RF Primary Care Provider: Luz Marina Schmidt NP Referrals: Luz Marina Schmidt NP, [employer]INE SET UP OPERATOR-C [Primary Care Provider] - 1 Week if not improving Activity Restrictions/Additional Instructions: The CT of your abdomen and pelvis today showed that your abdominal aortic aneurysm is stable and not leaking. Continue your Tylenol as needed for pain. Follow-up with your primary care provider in the next week if not improving. Return with new or worsening symptoms. Print Language: Wolof Disposition Disposition: Home, Self Care
[2024-11-24 20:18] LABS: Absolute Lymphocyte Count 1.05 X10^3/uL (0.83-4.51); Absolute Neutrophil Count 2.4 X10^3/uL (2.0-7.7); Basophil# 0.02 X10^3/uL; Basophil% 0.5 % (0-1); Eosinophil# 0.02 X10^3/uL; Eosinophils% 0.5 % (0-5); Hematocrit 31.2 % (37-47); Hemoglobin 10.3 g/dL (12.0-15.0); Lymphocyte # 1.05 X10^3/ul (0.83-4.51); Lymphocyte % 27.1 % (19-41); Mean Corpuscular Hgb 29.2 pg (27.0-32.0); Mean Corpuscular Volume 88.4 fL (81-99); Monocyte# 0.38 X10^3/uL; Monocyte% 9.8 % (0-10); NRBC Flagged by Analyzer 0 % (0-5); Neutrophil # 2.39 X10^3/uL (2.7-7.7); Neutrophil % 61.6 % (47-70); Platelet Count 148 K/mm3 (150-450); RBC Distribution Width CV 16.6 % (11.6-14.6); RBC Distribution Width SD 53.2 fl (35.1-43.9); Red Blood Count 3.53 M/mm3 (4.2-5.4); White Blood Count 3.9 K/mm3 (4.4-11.0)
[2024-11-24 20:32] LABS: Anion Gap 6 (5-15); BUN 11 mg/dL (7-18); BUN/Creat Ratio 14.2 RATIO (10-20); Calcium,Total 8.9 mg/dL (8.5-10.1); Chloride 107 mmol/L (98-107); Creatinine, Serum 0.78 mg/dL (0.55-1.02); EST Glomerular Filtration Rate 75 mL/min (>60); Est Glom Filt Rate - Afr Amer 91 mL/min (>60); Estimated Creatinine Clearance 46.51 ml/min; Glucose 128 mg/dL (74-106); Potassium 3.6 mmol/L (3.5-5.1); Sodium Level 141 mmol/L (136-145)
[2024-11-24 20:59] LABS: Mucous, Urine 0 SEEN /hpf (<or=2+)
[2024-11-24 21:01] LABS: Color, Urine Yellow (Yellow); Glucose, Dipstick Normal (Normal); Ketone-Dipstick Negative (Negative); Leukocyte Esterase-Dipstick 500 /ul (Negative); Nitrite-Dipstick Negative (Negative); Occult Blood-Urine Negative /ul (Negative); Protein-Dipstick 30 mg/dl (Negative); Specific Gravity, Urine 1.015 (1.002-1.030); Urine Bilirubin Dipstick Negative (Negative); Urine Clarity Clear (Clear); Urine Urobilinogen Normal (Normal)
[2024-11-24 21:18] LABS: Bacteria RARE /hpf (None Seen); Red Blood Cells-Urine 0 SEEN /hpf (0-5); Squamous Epithelial Cells - UA 0-5 SEEN /hpf (5-10); White Blood Cells 0-5 SEEN /hpf (0-5)
[2024-11-24 21:49] VITALS: BP 132/78; PULSE 87; RESP 17; TEMP 36.7; O2SAT 93
== END 2024-11-24 22:05 | disposition home or self-care (01) ==
PROVIDERS: Emergency Provider Emergency Medicine; PCP Registered Nurse; Visit Provider Emergency Medicine
DX: M54.50 Low back pain, unspecified (principal); M06.9 Rheumatoid arthritis, unspecified; J96.11 Chronic respiratory failure with hypoxia; J84.10 Pulmonary fibrosis, unspecified; E11.22 Type 2 diabetes mellitus with diabetic chronic kidney disease; N18.30 Chronic kidney disease, stage 3 unspecified; D70.9 Neutropenia, unspecified; I71.40 Abdominal aortic aneurysm, without rupture, unspecified; I25.10 Atherosclerotic heart disease of native coronary artery without angina pectoris; I12.9 Hypertensive chronic kidney disease with stage 1 through stage 4 chronic kidney disease, or unspecified chronic kidney disease; J45.909 Unspecified asthma, uncomplicated; K21.9 Gastro-esophageal reflux disease without esophagitis; Z87.19 Personal history of other diseases of the digestive system; Z90.49 Acquired absence of other specified parts of digestive tract; Z79.82 Long term (current) use of aspirin; Z79.84 Long term (current) use of oral hypoglycemic drugs; Z79.899 Other long term (current) drug therapy
CPT/HCPCS: 72131; 74176; 80048; 81001; 85025; 99285

== ENCOUNTER → 2025-02-08 | Outpatient (CLI) | payer MEDICARE, SELFPAY ==
--- NOTE | 2025-02-08 07:54 | AAVD_ITS ---
Reason For Study Reason For Study: AAA, Iliac Artery Ectasia Aorta Measurements Aorta Doppler Measurements Proximal aorta measures2.01cm. in longitudinal axis. Peak systolic flow velocities within the proximal aorta Proximal aorta measures2.15x2.46cm. in cross-sectional axis.measure 65.0 cm/sec. Mid aorta measures4.14x3.96cm. in cross-sectional axis. Peak systolic flow velocities within the mid aorta measure Mid aorta measures3.88cm. in longitudinal axis. 35.5 cm/sec. Distal aorta measures2.32x2.47cm. in cross-sectional axis. Peak systolic flow velocities within the distal aorta Distal aorta measures2.15cm. in longitudinal axis. measure 57.6 cm/sec. Left Iliac Artery Left iliac artery measures 0.91x1.04 cm. in the cross-sectional axis. Left iliac artery measures 1.03 cm. in the longitudinal axis. Peak systolic velocity in the left iliac artery measures 85.7 cm/sec. Right Iliac Artery Right iliac artery measures 1.06x1.27 cm. in the cross-sectional axis. Right iliac artery measures 1.01 cm. in the longitudinal axis. Peak systolic velocity in the right iliac artery measures 87.1 cm/sec. Procedure Aorta IVC Iliac vasculature or bypass grafts [id number]. Exam performed in department. VL/Abd Aortic/IVC Duplex scan Interpretation Summary Aorta patent, 4.14 cm aneurysm present. 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 Ordering Physician: Danielle Wu Referring Physician: Luz Marina Schmidt NP Performed By: Zahra Miramontes RVT
== END | disposition home or self-care (01) ==
LOC: CVS 07:54
PROVIDERS: PCP Registered Nurse; Referring Provider Physician Assistant; Visit Provider Physician Assistant
DX: I71.40 Abdominal aortic aneurysm, without rupture, unspecified (principal); N18.30 Chronic kidney disease, stage 3 unspecified
CPT/HCPCS: 93978